=== PATIENT | male | born 1960 | race Caucasian/White ===

== ENCOUNTER 2017-12-09 01:18 | Inpatient (IN) | payer BC ==
[2017-12-09] MEDS ORDERED: MIDAZOLAM 2 MG/2 ML VIAL ONE (01:29)
[2017-12-09] MEDS ORDERED: LIDOCAINE 1% INJ 10MG/ML (20 ML MDV) ONE (01:29)
[2017-12-09] MEDS ORDERED: VERAPAMIL 2.5 MG/ML 2 ML AMP ONE (01:45)
[2017-12-09] MEDS ORDERED: IV FLUID CONTINUATION 1,000 ML IV ONE (01:45)
[2017-12-09] MEDS ORDERED: HEPARIN SODIUM 1,000 UN/ML (10ML VL) ONE (01:45)
[2017-12-09] MEDS ORDERED: MIDAZOLAM 2 MG/2 ML VIAL IV ONE (01:58)
[2017-12-09] MEDS ORDERED: LIDOCAINE 1% (PF) 10MG/ML VIAL SQ ONE ×2 (01:58)
[2017-12-09] MEDS: VERAPAMIL SYRINGE (5 MG/10 ML) INTRAARTER ONE ×2 (02:01→02:14)
[2017-12-09] MEDS ORDERED: BIVALIRUDIN BOLUS 250 MG/50 ML IV ONE (02:01)
[2017-12-09] MEDS ORDERED: BIVALIRUDIN 250 MG in SODIUM CHLORIDE 0.9% 50 ML IV ONE (02:02)
[2017-12-09] MEDS ORDERED: LOSARTAN 25 MG TAB PO STA (02:15)
[2017-12-09] MEDS ORDERED: IOPAMIDOL-370 125ML BTL INJ ONE (02:18)
[2017-12-09] MEDS ORDERED: RX INFO: IV CONTRAST WAS GIVEN 1 EACH MISC MISCELLANE PRN (02:34)
[2017-12-09] MEDS ORDERED: SODIUM CHLORIDE 0.9% 1,000 ML IV SCH (02:45)
--- NOTE | 2017-12-09 02:56 | ED ---
Chest Pain HPI - General Chief Complaint: Chest Pain Stated Complaint: chest pain, stemi Time Seen by Provider: 12/09/17 01:23 Source: EMS Mode of arrival: EMS Limitations: no limitations - History of Present Illness Initial Comments: This patient is 57-year-old man who presents as a transfer from [facility]. The patient had gone there to be evaluated for chest pain. The chest pain began tonight around 7:30, while he was at rest. He indicates the substernal area and radiates towards the left shoulder to the left arm. Patient states the pain was moderate, constant and he initially did not notice worsening or relieving factors. He had gone to the other hospital where he had an initial workup with a negative troponin. The patient was started on heparin and nitroglycerin which did give symptomatic relief but he had recurrence of pain while he was there and a second EKG performed just after midnight was concerning for ST elevation NJ. The patient also had a repeat troponin which came back as 1.5. On arrival here, the patient states that his pain is improved but he still does have some pain rating it 2 out of 10. Patient has history of type 2 diabetes and also history of smoking. MD Complaint: chest pain -: hour(s) Onset: during rest Pain Location: substernal Pain Radiation: LUE Severity: moderate Quality: aching Consistency: constant Improves With: nitroglycerin Worsens With: nothing Treatments Prior to Arrival: aspirin, nitroglycerin, oxygen, other - Related Data Allergies Allergy/AdvReac Type Severity Reaction Status Date / Time No Known Allergies Allergy Verified 12/09/17 01:22 Review of Systems ROS Statement: Those systems with pertinent positive or pertinent negative responses have been documented in the HPI. ROS Other: All systems not noted in ROS Statement are negative. Constitutional: Denies: fever, chills, weakness Respiratory: Denies: cough, dyspnea Cardiovascular: Reports: as per HPI, chest pain. Denies: palpitations, orthopnea, edema, syncope Gastrointestinal: Denies: abdominal pain, nausea, vomiting Genitourinary: Denies: hematuria Musculoskeletal: Denies: back pain Skin: Denies: rash Neurological: Denies: headache, weakness, numbness Hematological/Lymphatic: Denies: easy bleeding EKG Findings - EKG Results: EKG: interpreted by RAKESH, sinus rhythm (Rate approximate 98 bpm), normal axis - NJ, Pacemaker, Normal: Myocardial infarction: septal NJ (old age or indeterminate) Past Medical History Past Medical History: No Reported History History of Any Multi-Drug Resistant Organisms: None Reported Past Surgical History: No Surgical Hx Reported Past Psychological History: No Psychological Hx Reported Smoking Status: Current every day smoker Past Alcohol Use History: None Reported Past Drug Use History: None Reported General Exam Limitations: no limitations General appearance: alert, in no apparent distress Head exam: Present: atraumatic, normocephalic Eye exam: Present: normal appearance. Absent: scleral icterus, conjunctival injection ENT exam: Present: normal oropharynx, mucous membranes moist Neck exam: Present: normal inspection, full ROM Respiratory exam: Present: normal lung sounds bilaterally. Absent: respiratory distress, wheezes, rales, rhonchi, stridor Cardiovascular Exam: Present: regular rate, normal rhythm, normal heart sounds. Absent: systolic murmur, diastolic murmur, rubs, gallop GI/Abdominal exam: Present: soft. Absent: distended, tenderness, guarding, rebound, rigid, mass Extremities exam: Present: normal inspection, normal capillary refill. Absent: pedal edema, calf tenderness Back exam: Present: normal inspection. Absent: CVA tenderness (R), CVA tenderness (L) Neurological exam: Present: alert Skin exam: Present: warm, dry, intact, normal color. Absent: rash Course Vital Signs 12/09/17 12/09/17 01:25 01:29 Temperature 97.9 F Pulse Rate 101 H 98 Respiratory 18 18 Rate Blood Pressure 168/74 160/75 O2 Sat by Pulse 96 96 Oximetry Chest Pain MDM - MDM When I received the call from [facility] regarding the transfer this patient , I had them fax an EKG and discussed with the career development coordinator/teacher Dr. Randhawa. The [employer] was activated. On arrival, the EKG was repeated and a facsimile was sent to career development coordinator/teacher and I also discussed with the interventional list on-call. The patient is taken to the incinerator plant laborer directly from the ER. Critical Care Time Critical Care Time: Yes (30 minutes) Disposition Clinical Impression: Acute coronary syndrome Disposition: ADMITTED IP TO THIS [facility] Condition: Serious Referrals: Ba Green MD [Primary Care Provider] - 1-2 days
[2017-12-09 03:05] LABS: Glucose,Whole Blood 264 mg/dL (75-99)
[2017-12-09] MEDS ORDERED: SODIUM CHLORIDE 0.45% IV SCH ×2 (03:30)
[2017-12-09] MEDS ORDERED: D5W PMX IV SCH ×2 (03:30)
[2017-12-09] MEDS ORDERED: HEPARIN SODIUM PORCINE IV SCH ×2 (03:30)
[2017-12-09 03:35] LABS: Basophils # (A) 0.1 k/uL (0-0.2); Basophils % (A) 1 %; Eosinophils # (A) 0.3 k/uL (0-0.7); Eosinophils % (A) 2 %; HCT 43.4 % (39.0-53.0); HGB 15.2 gm/dL (13.0-17.5); Lymphocytes # (A) 2.5 k/uL (1.0-4.8); Lymphocytes % (A) 19 %; MCH 28.5 pg (25.0-35.0); MCV 81.4 fL (80.0-100.0); Mean Platelet Volume 6.8; Monocytes # (A) 0.9 k/uL (0-1.0); Monocytes % (A) 7 %; Neutrophils # (A) 8.8 k/uL (1.3-7.7); Neutrophils % (A) 69 %; Platelet Count 267 k/uL (150-450); RBC 5.34 m/uL (4.30-5.90); RDW 13.2 % (11.5-15.5); WBC 12.7 k/uL (3.8-10.6)
[2017-12-09 03:44] LABS: INR 1.2 (<1.2); Partial Thromboplastin Time 50.4 sec (22.0-30.0); Prothrombin Time 11.2 sec (9.0-12.0)
[2017-12-09 03:57] LABS: ALT 55 U/L (21-72); AST 242 U/L (17-59); Albumin 4.2 g/dL (3.5-5.0); Alkaline Phosphatase 76 U/L (38-126); Anion Gap 9 mmol/L; Blood Urea Nitrogen 18 mg/dL (9-20); Calcium 9.2 mg/dL (8.4-10.2); Carbon Dioxide 23 mmol/L (22-30); Chloride 104 mmol/L (98-107); Glucose 257 mg/dL (74-99); Potassium 4.4 mmol/L (3.5-5.1); Sodium 136 mmol/L (137-145); Total Bilirubin 0.7 mg/dL (0.2-1.3); Total Protein 6.7 g/dL (6.3-8.2)
[2017-12-09] MEDS: ATORVASTATIN 80 MG TAB PO SCH (04:02)
[2017-12-09 04:03] LABS: Troponin I 52.1 ng/mL (0.000-0.034)
--- NOTE | 2017-12-09 04:36 | CONS ---
CONSULTATION Mr. Preston Li is a 57-year-old male patient who presented with chest pain to the emergency room at [facility] around 8 o'clock last night. He was sitting at home watching TV, when he started experiencing severe substernal chest discomfort with some radiation to the left arm. His first 12-lead ECG at [facility] was at 8:[address]-segment abnormalities in the in the precordial leads as well as ST depression in V5, V6, and in the inferior leads with ST elevation in aVR. His 2nd EKG was performed at [facility] at 12:20 am which showed an incomplete anterior wall TX complete anterior wall infarct with reduction in R-waves. He was then transferred to [facility]. I got a call from Dr. Thakur after 1:00 am in the morning saying the patient is being transferred for an anterior wall infarct. The 1st 12-lead ECG in the emergency room here was 1:25 am and showed a complete anterior wall infarct with ST anterior wall infarct. The patient had a very mild lingering pain and when I spoke to him, he had a very brief discomfort left. He stated that he had very similar pain and at about 7 o'clock this evening and was in the emergency room at [facility] at 8 o'clock and had fairly severe pain there for several hours. He also admitted to having intermittent similar chest discomfort for at least 24 hours prior but was mild and would go away. Yesterday at 7 o'clock in the evening, the pain was quite severe and was constant and therefore he went to the emergency room at that time. REVIEW OF SYSTEMS: No fever, chills, or rigors. No cough or expectoration. No nausea, vomiting, or diarrhea. No hematuria or dysuria. No strokes or seizures or skin lesions. No musculoskeletal complaints. PAST MEDICAL HISTORY: Diabetes. He does not take any diabetes medications. He is not on any medications at all. He is a patient of Dr. Green. ALLERGIES: None reported. PHYSICAL EXAMINATION: His blood pressure is 130/85 mmHg. Pulse rate in the 90s. Head and neck examination is normal. Heart sounds S1, S2 normal. No murmurs or gallops. No rub. Breath sounds are clear. ABDOMEN: Soft. Extremities warm. IMPRESSION: 1. Completed anterior wall infarct with minimal lingering pain. Onset of pain was at 7:00 pm last evening he was in [facility] at 8 o'clock 8:00 pm. His 1st ECG was at 8:22 pm and he had pain in the emergency room for several hours before he was transferred here. 2. Diabetes, adult onset not taking any medications. He has stopped his medications. SUGGEST: Proceed with coronary angiography for completed anterior wall infarct with lingering mild discomfort. ZHAO / CRISTINA: [id number] /
--- NOTE | 2017-12-09 05:06 | CC ---
CARDIAC CATHETERIZATION REPORT DATE OF SERVICE: 12/09/2017 PERFORMING PHYSICIAN: Amado Mcgraw MD, cafe team member. PROCEDURE PERFORMED: 1. Selective right and left coronary angiogram. 2. Left heart catheterization. INDICATION: This is a pleasant 57-year-old gentleman who to the emergency room at [facility] complaining of chest discomfort. He was ruled in for acute non ST elevation myocardial infarction. The patient was seen and evaluated by Dr. Randhawa who recommended proceeding with a heart catheterization to rule out any severe underlying coronary artery disease. APPROACH: Right radial artery. COMPLICATION: None. LEVEL OF SEDATION: Moderate with sedation length of 17 minutes. PROCEDURE DESCRIPTION: After obtaining an informed consent, the patient was brought to the cardiac dye lab technician. The right radial artery was cannulated using micropuncture technique, the micropuncture wire passed easily then I placed a 6-Senegalese sheath in the right radial artery. After that, I did give the patient 2 mg of verapamil IA and started the patient on anticoagulation with Angiomax. After that, I did selective right and left coronary angiogram using JR4 and JL3.5 catheters. Left heart catheterization was performed using JR4 catheter which flipped into the LV then I did pullback across the aortic valve after the catheter was flushed. The procedure was completed without any complication. SELECTIVE CORONARY ANGIOGRAM: 1. The RCA is a large caliber vessel and it is a dominant vessel. The proximal RCA has a lesion appeared to be in the range of 70%. The mid RCA is chronically occluded and fills by collateral from the left coronary system. The collaterals filled the RCA in a retrograde way all the way to the [employer] DEVELOPER in the midportion. 2. The left main is calcified with mild disease only. The disease appears to be in the range of 70%. Bifurcates in the circumflex, ramus intermedius, and left anterior descending artery. 3. The left circumflex is a moderate caliber vessel and its nondominant vessel. The proximal left circumflex appeared to have mild disease only. The mid left circumflex is diffusely diseased up to about 80% to 90% on a long segment. The left circumflex gives rise into multiple small obtuse marginal branches and they are diffusely diseased as well. 4. The ramus intermedius is a large caliber vessel, the whole lateral wall of the LV. The proximal ramus intermedius has a tubular lesion appeared to be in the range of 80% to 90%. The ramus intermedius after that bifurcates into 2 separate branches they are angiographically normal. 5. The LAD: The proximal LAD has a long tubular lesion extends from the ostium to the first diagonal branch and that lesion appeared to be in the range of 99%. The mid LAD after the diagonal branch all the way to the apex is diffusely diseased up to about 40% to 50%. HEMODYNAMICS: The left ventricular end-diastolic pressure was 12 mmHg and no gradient was identified across the aortic valve. CONCLUSION: 1. Severe triple-vessel coronary artery disease. 2. Calcified left coronary system. 3. Chronic total occlusion of the right coronary artery in the midportion which fills by collaterals from the left coronary system. 4. Critical disease involving the left circumflex in the mid portion. 5. Critical disease involving the ramus intermedius coronary artery in the proximal portion. 6. Critical disease involving the proximal left anterior descending artery as well. POSTPROCEDURE MANAGEMENT: Giving the patient anatomy, which is a triple-vessel coronary artery disease, as well as the nature of the disease, which is diffuse, as well as the diabetes, we did recommend proceeding with coronary artery bypass grafting. We will consult surgeon to evaluate the patient. Meanwhile, the patient will be admitted to the intensive care unit. Heparin will be restarted on the patient after we achieve hemostasis at the right radial artery. Aspirin, beta suzie, and statin will be started as well and follow up with the patient. ZHAO / ADELINEN: [id number] /
--- NOTE | 2017-12-09 07:12 | XR ---
EXAMINATION TYPE: XR chest 1V DATE OF EXAM: 12/09/2017 COMPARISON: NONE HISTORY: Chest pain TECHNIQUE: Single frontal view of the chest is obtained. FINDINGS: There is no focal air space opacity, pleural effusion, or pneumothorax seen. The cardiac silhouette size is within normal limits. The osseous structures are intact. IMPRESSION: No acute cardiopulmonary process.
[2017-12-09] MEDS ORDERED: MD COMMUNICATION TO PHARMACY 1 EACH MISC PO ONE (07:39)
--- NOTE | 2017-12-09 07:45 | P.PN ---
Subjective Progress Note Date: 12/09/17 Principal diagnosis: Acute coronary syndrome This is a pleasant 57-year-old gentleman with history of diabetes who presented to the hospital complaining of chest discomfort and ruled in for acute coronary syndrome. He underwent a heart catheterization yesterday and that revealed severe two-vessel CAD with occluded RCA chronically fills by collateral from the left coronary system, critical disease involving the left circumflex, and critical disease involving the left anterior descending artery. Giving his anatomy and being diabetic the patient was referred for coronary artery that is grafting and he is in process to be seen by cardiothoracic surgeon later on today. He denies having any chest pain or chest discomfort. An echocardiogram was ordered and in process to be done. He is on aspirin, metoprolol, and high intensity statin. He continues to be also on heparin IV. Objective - Vital Signs Vital signs: Vital Signs Temp 98 F 12/09/17 04:00 Pulse 92 12/09/17 07:30 Resp 15 12/09/17 07:30 BP 122/84 12/09/17 07:30 Pulse Ox 97 12/09/17 07:30 Intake & Output 12/08/17 12/09/17 12/09/17 18:59 06:59 18:59 Intake Total 383.79 95 Output Total 600 Balance -216.21 95 Weight 90.718 kg Intake: IV 383.79 95 Sodium Chloride 0.45 % 40 20 500 ml @ 20 mls/hr IV . Q24H KISHA with Heparin Sodium,Porcine/D5w Pmx 25 ,000 unit Rx#:[id number] Sodium Chloride 0.9% 1, 225 75 000 ml @ 75 mls/hr IV . [id number] KISHA Rx#:[id number] Output: Urine 600 Other: Voiding Method Urinal # Voids 1 - Constitutional General appearance: Present: no acute distress - Respiratory Respiratory: bilateral: CTA - Cardiovascular Rhythm: regular Heart sounds: normal: S1, S2 - Labs CBC & Chem 7: 12/09/17 03:20 12/09/17 03:20 Labs: Abnormal Lab Results - Last 24 Hours (Table) 12/09/17 12/09/17 12/09/17 Range/Units 03:03 03:20 03:20 WBC 12.7 H (3.8-10.6) k/uL Neutrophils # 8.8 H (1.3-7.7) k/uL INR (<1.2) APTT (22.0-30.0) sec Sodium (137-145) mmol/L Glucose (74-99) mg/dL POC Glucose (mg/dL) 264 H (75-99) mg/dL AST (17-59) U/L Total Creatine Kinase 2639 H (55-170) U/L CK-MB (CK-2) 128.0 H* (0.0-2.4) ng/mL Troponin I 52.100 H* (0.000-0.034) ng/mL 12/09/17 12/09/17 Range/Units 03:20 03:20 WBC (3.8-10.6) k/uL Neutrophils # (1.3-7.7) k/uL INR 1.2 H (<1.2) APTT 50.4 H (22.0-30.0) sec Sodium 136 L (137-145) mmol/L Glucose 257 H (74-99) mg/dL POC Glucose (mg/dL) (75-99) mg/dL AST 242 H (17-59) U/L Total Creatine Kinase (55-170) U/L CK-MB (CK-2) (0.0-2.4) ng/mL Troponin I (0.000-0.034) ng/mL Assessment and Plan Assessment: Assessment #1 acute coronary syndrome. #2 severe two-vessel CAD #3 diabetes Plan #1 the patient is in process to be seen by cardiothoracic surgeon for evaluation off CABG #2 continue the current medical treatment with antiplatelet, high intensity statin, and metoprolol. As a matter of fact I am going to increase the dose of metoprolol to 25 mg by mouth twice a day. #3 follow-up on the echocardiogram later on today.
--- NOTE | 2017-12-09 08:13 | P.GSCN ---
History of Present Illness Consult date: 12/09/17 Reason for Consult: Severe triple vessel coronary artery disease, non-STEMI, surgical revascularization recommendations. Requesting physician: Kali Randhawa History of present illness: This is a 57-year-old male patient who follows with Dr. Ba Green on an outpatient basis. He has a previous medical history of diabetes mellitus, hypertension, hyperlipidemia, stroke greater than 5 years ago, current tobacco dependence, suspicion for obstructive sleep apnea, and family history of premature coronary artery disease with his brother having a 5 vessel bypass at 57 years old. He is on no medications at home by choice. He presented to [facility] with complaints of substernal chest pain with radiation to his left arm while at rest. Apparently he had been having intermittent chest discomfort for the previous 24 hours but that it became so severe he felt the need to report to the emergency room. He denied shortness of breath, diaphoresis, nausea, vomiting, or any other associated symptoms. His 12-lead EKG at [facility] demonstrated ST segment abnormalities in the precordial leads as well as ST depression in V5, V6, and the inferior leads with ST elevation in aVR. His initial troponin was negative, second troponin was 1.5. He was transferred to [facility] and was taken emergently to the cardiac catheterization lab. His third troponin was 52.1. His heart catheterization demonstrated proximal RCA lesion 70%, chronic total occlusion of the mid RCA with collateral fill from the left coronary system, mid circumflex with diffuse disease of 80-90%, proximal ramus artery with a lesion of 80-90%, proximal LAD with a long lesion extending from the ostium to the first diagonal branch which appears to be a proximal 99%, and mid LAD after the diagonal branch with diffuse disease of 40-50%. The patient was transferred to the intensive care unit and a consult was placed for Dr. Roth from cardiothoracic surgery regarding surgical recommendations. Review of Systems Review of systems was completed and was negative except as noted. - Cardiovascular Reports as per HPI, Reports chest pain Past Medical History Past Medical History: CVA/TIA, Diabetes Mellitus, Hyperlipidemia, Hypertension History of Any Multi-Drug Resistant Organisms: None Reported Past Surgical History: No Surgical Hx Reported Additional Past Surgical History / Comment(s): heart cath 12/09 Past Anesthesia/Blood Transfusion Reactions: No Reported Reaction Past Psychological History: No Psychological Hx Reported Smoking Status: Current every day smoker Past Alcohol Use History: None Reported Past Drug Use History: None Reported - Past Family History Brother(s) Family Medical History: Coronary Artery Disease (CAD) Additional Family Medical History / Comment(s): Brother had 5 vessel coronary artery bypass at 57 years old Medications and Allergies Home Medications Medication Instructions Recorded Confirmed Type No Known Home Medications 12/09/17 12/09/17 History Allergies Allergy/AdvReac Type Severity Reaction Status Date / Time No Known Allergies Allergy Verified 12/09/17 08:09 Surgical - Exam Vital Signs Temp Pulse Resp BP Pulse Ox 97.9 F 101 H 18 168/74 96 12/09/17 01:25 12/09/17 01:25 12/09/17 01:25 12/09/17 01:25 12/09/17 01:25 - General well developed, well nourished, no distress - Eyes PERRL, normal ocular movement - ENT no hearing loss - Neck no masses, no bruits, trachea midline - Respiratory Lungs sounds diminished bilaterally. Respirations even, nonlabored. Currently on 2 L nasal cannula with oxygen saturation 97%. No chest wall deformities. - Cardiovascular S1, S2 present. Regular rate and rhythm, sinus rhythm on telemetry. Palpable peripheral pulses bilaterally. No edema present. No calf pain or tenderness noted. No varicosities noted. - Abdomen Abdomen: soft, non tender, bowel sounds - Genitourinary Deferred - Rectum Deferred - Integumentary Right radial catheterization site with TR band in place. no rash, no growths, no abnormal pigmentation - Neurologic normal coordination, normal sensation - Psychiatric oriented to time, oriented to person, oriented to place, speech is normal, memory intact Results - Labs 12/09/17 03:20 12/09/17 03:20 Abnormal Lab Results - Last 24 Hours (Table) 12/09/17 12/09/17 12/09/17 Range/Units 03:03 03:20 03:20 WBC 12.7 H (3.8-10.6) k/uL Neutrophils # 8.8 H (1.3-7.7) k/uL INR (<1.2) APTT (22.0-30.0) sec Sodium (137-145) mmol/L Glucose (74-99) mg/dL POC Glucose (mg/dL) 264 H (75-99) mg/dL AST (17-59) U/L Total Creatine Kinase 2639 H (55-170) U/L CK-MB (CK-2) 128.0 H* (0.0-2.4) ng/mL Troponin I 52.100 H* (0.000-0.034) ng/mL 12/09/17 12/09/17 Range/Units 03:20 03:20 WBC (3.8-10.6) k/uL Neutrophils # (1.3-7.7) k/uL INR 1.2 H (<1.2) APTT 50.4 H (22.0-30.0) sec Sodium 136 L (137-145) mmol/L Glucose 257 H (74-99) mg/dL POC Glucose (mg/dL) (75-99) mg/dL AST 242 H (17-59) U/L Total Creatine Kinase (55-170) U/L CK-MB (CK-2) (0.0-2.4) ng/mL Troponin I (0.000-0.034) ng/mL Diabetes panel 12/09/17 Range/Units 03:20 Sodium 136 L (137-145) mmol/L Potassium 4.4 (3.5-5.1) mmol/L Chloride 104 (98-107) mmol/L Carbon Dioxide 23 (22-30) mmol/L BUN 18 (9-20) mg/dL Creatinine 0.90 (0.66-1.25) mg/dL Glucose 257 H (74-99) mg/dL Calcium 9.2 (8.4-10.2) mg/dL AST 242 H (17-59) U/L ALT 55 (21-72) U/L Alkaline Phosphatase 76 (38-126) U/L Total Protein 6.7 (6.3-8.2) g/dL Albumin 4.2 (3.5-5.0) g/dL Calcium panel 12/09/17 Range/Units 03:20 Calcium 9.2 (8.4-10.2) mg/dL Albumin 4.2 (3.5-5.0) g/dL Pituitary panel 12/09/17 Range/Units 03:20 Sodium 136 L (137-145) mmol/L Potassium 4.4 (3.5-5.1) mmol/L Chloride 104 (98-107) mmol/L Carbon Dioxide 23 (22-30) mmol/L BUN 18 (9-20) mg/dL Creatinine 0.90 (0.66-1.25) mg/dL Glucose 257 H (74-99) mg/dL Calcium 9.2 (8.4-10.2) mg/dL Adrenal panel 12/09/17 Range/Units 03:20 Sodium 136 L (137-145) mmol/L Potassium 4.4 (3.5-5.1) mmol/L Chloride 104 (98-107) mmol/L Carbon Dioxide 23 (22-30) mmol/L BUN 18 (9-20) mg/dL Creatinine 0.90 (0.66-1.25) mg/dL Glucose 257 H (74-99) mg/dL Calcium 9.2 (8.4-10.2) mg/dL Total Bilirubin 0.7 (0.2-1.3) mg/dL AST 242 H (17-59) U/L ALT 55 (21-72) U/L Alkaline Phosphatase 76 (38-126) U/L Total Protein 6.7 (6.3-8.2) g/dL Albumin 4.2 (3.5-5.0) g/dL - Imaging Chest x-ray: report reviewed, image reviewed EKG: image reviewed Additional studies: Heart catheterization films reviewed. Assessment and Plan (1) Non-STEMI (non-ST elevated myocardial infarction) Current Visit: Yes Status: Acute Code(s): I21.4 - NON-ST ELEVATION (NSTEMI) MYOCARDIAL INFARCTION SNOMED Code(s): 087858631 (2) Hypertension Current Visit: Yes Status: Chronic Code(s): I10 - ESSENTIAL (PRIMARY) HYPERTENSION SNOMED Code(s): 20478030 (3) Hyperlipidemia Current Visit: Yes Status: Chronic Code(s): E78.5 - HYPERLIPIDEMIA, UNSPECIFIED SNOMED Code(s): 69750574 (4) History of stroke Current Visit: No Status: Resolved Code(s): Z86.73 - PRSNL HX OF TIA (TIA), AND CEREB INFRC W/O RESID DEFICITS SNOMED Code(s): 616094039 (5) Tobacco dependence Current Visit: Yes Status: Chronic Code(s): F17.200 - NICOTINE DEPENDENCE, UNSPECIFIED, UNCOMPLICATED SNOMED Code(s): 79630752 (6) Family history of premature coronary artery disease Current Visit: Yes Status: Chronic Code(s): Z82.49 - FAMILY HX OF ISCHEM HEART DIS AND OTH DIS OF THE CIRC SYS SNOMED Code(s): 979018291 (7) Diabetes mellitus Current Visit: Yes Status: Chronic Code(s): E11.9 - TYPE 2 DIABETES MELLITUS WITHOUT COMPLICATIONS SNOMED Code(s): 17045711 (8) Acute coronary syndrome Current Visit: Yes Status: Acute Code(s): I24.9 - ACUTE ISCHEMIC HEART DISEASE, UNSPECIFIED SNOMED Code(s): 520732344 Plan: The patient was seen and examined at the bedside. Chart/diagnostics were reviewed. We would recommend maximizing medical therapy with aspirin, statin, beta suzie. Preoperative teaching was initiated with the patient. Preoperative testing was ordered. Encourage patient to quit smoking. We'll discuss the case in detail with Dr. Roth. STS risk score will be calculated upon completion of preoperative testing and discussed with the patient. Medical management per primary care service, cardiology management per Dr. Randhawa. More recommendations to follow. Thank you Dr. Randhawa for this consult. We look forward to working with you in the care of your patient. Time with Patient: Greater than 30
[2017-12-09] MEDS: MUPIROCIN 2% OINT 22 GM TUBE NASAL SCH ×2 (08:33→19:51)
[2017-12-09] MEDS: METOPROLOL SUCCINATE (ER) 25 MG TAB.ER.24H PO SCH ×2 (08:33→19:51)
[2017-12-09] MEDS: ASPIRIN 81 MG PO SCH (08:33)
[2017-12-09] MEDS ORDERED: METOPROLOL SUCCINATE (ER) 25 MG TAB.ER.24H PO SCH (09:00)
[2017-12-09 09:10] LABS: Troponin I 69.1 ng/mL (0.000-0.034)
--- NOTE | 2017-12-09 09:49 | ECHOF ---
Referral Reason:ACS MEASUREMENTS -------- HEIGHT: 180.3 cm WEIGHT: 90.7 kg BP: IVSd: 0.9 cm (0.6 - 1.1) LVIDd: 4.2 cm (3.9 - 5.3) LVPWd: 0.9 cm (0.6 - 1.1) IVSs: 1.1 cm LVIDs: 3.7 cm LVPWs: 1.4 cm Ao Diam: 3.8 cm (2.0 - 3.7) AV Cusp: 2.0 cm (1.5 - 2.6) LA Diam: 2.7 cm (2.7 - 3.8) MV EXCURSION: 18.395 mm (> 18.000) MV EF SLOPE: 127 mm/s (70 - 150) EPSS: 0.8 cm MV E Elton: 0.62 m/s MV DecT: 107 ms MV A Elton: 0.80 m/s MV E/A Ratio: 0.78 FINDINGS -------- Sinus rhythm. This was a technically difficult study with suboptimal views. The left ventricular size is normal. Left ventricular wall thickness is normal. Overall left vent ricular systolic function is moderate-severely impaired with, an EF between 30 - 35 %. Large apical a kinesis The right ventricle is normal in size and function. The left atrium is normal in size. The right atrium is normal in size. Lumason used The aortic valve is trileaflet and appears structurally normal. Mild mitral regurgitation is present. Mild tricuspid regurgitation present. The right ventricular systolic pressure, as measured by Doppl er, is {RVSP}. Pulmonic valve appears structurally normal. The aortic root is dilated measuring 3.9 cm CONCLUSIONS -------- 1. Sinus rhythm. 2. This was a technically difficult study with suboptimal views. 3. The left ventricular size is normal. 4. Left ventricular wall thickness is normal. 5. Overall left ventricular systolic function is moderate-severely impaired with, an EF between 30 - 35 %. 6. The right ventricle is normal in size and function. 7. The left atrium is normal in size. 8. The right atrium is normal in size. 9. Lumason used 10. The aortic valve is trileaflet and appears structurally normal. 11. Mild mitral regurgitation is present. 12. Mild tricuspid regurgitation present. 13. The right ventricular systolic pressure, as measured by Doppler, is {RVSP}. 14. Pulmonic valve appears structurally normal. 15. The aortic root is dilated measuring 3.9 cm SERVICE DESK AGENT: Mariella Wlaler RDCS
--- NOTE | 2017-12-09 11:28 | US ---
EXAMINATION TYPE: US carotid duplex BILAT DATE OF EXAM: 12/09/2017 COMPARISON: NONE CLINICAL HISTORY: 57-year-old male preop cardiac surgery. History of TIA 5 years ago TECHNIQUE: Carotid duplex ultrasound examination. Indirect Doppler criteria was utilized. 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 Criteria for Assigning % of Stenosis / Diameter reduction (Estimation based on the indirect measurements of the internal carotid artery velocities (ICA PSV). 1. Normal (no stenosis)=ICA PSV < 125 cm/s: ratio < 2.0: ICA EDV<40 cm/s. 2. Less than 50% stenosis=ICA PSV < 125 cm/s: ratio < 2.0: ICA EDV<40 cm/s. 3. 50 to 69% stenosis=ICA PSV of 125 to 230 cm/s: ration 2.0 ? 4.0: ICA EDV 40-100 cm/s. 4. Greater than 70% stenosis to near occlusion= ICA PSV > 230 cm/s: ratio > 4.0: ICA EDV > 100 cm/s. 5. Near occlusion= ICA PSV velocities may be low or undetectable: variable ratio and ICA EDV. 6. Total occlusion=unable to detect flow.
[2017-12-09 11:58] LABS: Glucose,Whole Blood 248 mg/dL (75-99)
[2017-12-09] MEDS: INSULIN ASPART 100 UNIT/ML 1 ML 10 ML VIAL SQ SCH ×3 (12:04→21:34)
[2017-12-09] MEDS ORDERED: IPRATROPIUM-ALBUTEROL 3 ML NEB INHALATION PRN (12:10)
--- NOTE | 2017-12-09 12:10 | P.CNPUL ---
History of Present Illness Consult date: 12/09/17 Requesting physician: Samantha Roth Reason for consult: other (Preoperative pulmonary clearance) Chief complaint: Chest pain History of present illness: This is a 57-year-old white male, [id number] smoker, known history of mild COPD, type 2 diabetes, patient presented to the hospital with acute chest pain and discomfort, felt to have ST elevation myocardial infarction. Cardiac catheterization showed severe two-vessel disease with occluded RCA chronically fills by collaterals from the left coronary system. Critical disease noted in the left circumflex and critical disease noted in the LAD. Considering the findings, patient was referred to cardiothoracic surgery, and he is being considered for myocardial revascularization in the morning. Patient denies chronic shortness of breath, denies any cough and wheezing. Has been a smoker over the years, and he was given 1 time by his primary care physician albuterol , but he rarely ever takes albuterol. He is relatively active physically, no dyspnea on exertion. No fever no chills no hemoptysis no chest pain until the time of his presentation. Patient denies any GI symptoms no nausea no vomiting up down pain no melena no hematemesis. No dysuria and no frequency no urgency. Denies any neurological symptoms. And no musculoskeletal symptoms. Review of Systems 14 point review of systems were obtained, please refer to pertinent positives in HPI, otherwise remaining systems are negative. Past Medical History Past Medical History: CVA/TIA, Diabetes Mellitus, Hyperlipidemia, Hypertension History of Any Multi-Drug Resistant Organisms: None Reported Past Surgical History: No Surgical Hx Reported Additional Past Surgical History / Comment(s): heart cath 12/09 Past Anesthesia/Blood Transfusion Reactions: No Reported Reaction Past Psychological History: No Psychological Hx Reported Smoking Status: Current every day smoker Past Alcohol Use History: None Reported Past Drug Use History: None Reported - Past Family History Brother(s) Family Medical History: Coronary Artery Disease (CAD) Additional Family Medical History / Comment(s): Brother had 5 vessel coronary artery bypass at 57 years old Medications and Allergies Home Medications Medication Instructions Recorded Confirmed Type No Known Home Medications 12/09/17 12/09/17 History Allergies Allergy/AdvReac Type Severity Reaction Status Date / Time No Known Allergies Allergy Verified 12/09/17 08:09 Physical Exam Vitals: Vital Signs Temp Pulse Resp BP Pulse Ox 12/09/17 07:30 92 15 122/84 97 12/09/17 07:00 85 19 121/79 94 L 12/09/17 06:30 91 19 121/79 96 12/09/17 06:00 90 18 120/80 96 12/09/17 05:30 87 15 120/80 97 12/09/17 05:00 94 17 119/75 97 12/09/17 04:30 91 18 118/70 97 12/09/17 04:00 98 F 88 16 129/79 98 12/09/17 03:30 96 18 119/78 98 12/09/17 03:00 97.9 F 96 16 121/73 95 12/09/17 01:29 98 18 160/75 96 12/09/17 01:25 97.9 F 101 H 18 168/74 96 Intake and Output 12/08/17 12/09/17 12/09/17 22:59 06:59 14:59 Intake Total 383.79 95 Output Total 600 Balance -216.21 95 Intake: IV 383.79 95 Sodium Chloride 0.45 % 40 20 500 ml @ 20 mls/hr IV . Q24H KISHA with Heparin Sodium,Porcine/D5w Pmx 25 ,000 unit Rx#:[id number] Sodium Chloride 0.9% 1, 225 75 000 ml @ 75 mls/hr IV . [id number] KISHA Rx#:[id number] Output: Urine 600 Other: Voiding Method Urinal # Voids 1 Weight 90.718 kg Physical Exam: Revealed a 57-year-old white male in no distress. Head: Atraumatic, normocephalic. HEENT:[Neck is supple.] [No neck masses.] [No thyromegaly.] [No JVD.] Chest: [Clear throughout, no crackles, no rhonchi, no wheezes.] Cardiac Exam: [Normal S1 and S2, no S3 gallop, no murmur.] Abdomen: [Soft, nontender, no megaly, no rebound, no guarding, normal bowel sounds.] Extremities: [No clubbing, no edema, no cyanosis.] Neurological Exam: [No focal neurologic deficit. Lymphatics: No lymphadenopathy. Psychiatric: Normal mood affect and mental status examination.] Results - Laboratory Findings CBC and BMP: 12/09/17 03:20 12/09/17 03:20 PT/INR, D-dimer PT 11.2 sec (9.0-12.0) 12/09/17 03:20 INR 1.2 (<1.2) H 12/09/17 03:20 Abnormal lab findings: Abnormal Labs 12/09/17 12/09/17 12/09/17 03:03 03:20 03:20 WBC 12.7 H Neutrophils # 8.8 H INR APTT Sodium Glucose POC Glucose (mg/dL) 264 H AST Total Creatine Kinase 2639 H CK-MB (CK-2) 128.0 H* Troponin I 52.100 H* Triglycerides HDL Cholesterol 12/09/17 12/09/17 12/09/17 03:20 03:20 03:20 WBC Neutrophils # INR 1.2 H APTT 50.4 H Sodium 136 L Glucose 257 H POC Glucose (mg/dL) AST 242 H Total Creatine Kinase CK-MB (CK-2) Troponin I Triglycerides 457 H HDL Cholesterol 36 L 12/09/17 12/09/17 07:54 11:56 WBC Neutrophils # INR APTT Sodium Glucose POC Glucose (mg/dL) 248 H AST Total Creatine Kinase 2720 H CK-MB (CK-2) 132.0 H* Troponin I 69.100 H* Triglycerides HDL Cholesterol - Diagnostic Findings Chest x-ray: image reviewed (No acute pulmonary process was noted.) Assessment and Plan Assessment: Impression: 1 acute coronary syndrome 2 2 vessel coronary artery disease, as noted on his cardiac catheterization. 3 suspect mild COPD, however the patient is relatively asymptomatic. 4 tobacco dependence syndrome and the patient was counseled regarding smoking cessation. Recommendation: Patient is considered low operative risk for myocardial revascularization, we will order a bedside PFT, will placed on bronchodilators, incentive spirometry, and the patient will be cleared for surgery as scheduled. We'll continue to follow Time with Patient: Greater than 30
[2017-12-09] MEDS: HEPARIN SOD,PORK IN 0.45% NACL 25,000 UNIT in 0.45% NACL 1 500ML.BAG IV SCH (12:47)
--- NOTE | 2017-12-09 13:37 | P.HPIM ---
History of Present Illness 57-year-old white male, [id number] smoker, known history of mild COPD, type 2 diabetes, patient presented to the hospital with acute chest pain and discomfort , felt to have ST elevation myocardial infarction. Cardiac catheterization showed severe two-vessel disease with occluded RCA chronically fills by collaterals from the left coronary system. Critical disease noted in the left circumflex and critical disease noted in the LAD. Considering the findings, patient was referred to cardiothoracic surgery, and he is being considered for myocardial revascularization in the morning. Patient denies chronic shortness of breath, denies any cough and wheezing. Has been a smoker over the years, and he was given 1 time by his primary care physician albuterol, but he rarely ever takes albuterol. He is relatively active physically, no dyspnea on exertion. No fever no chills no hemoptysis no chest pain until the time of his presentation. Patient denies any GI symptoms no nausea no vomiting up down pain no melena no hematemesis. No dysuria and no frequency no urgency. Denies any neurological symptoms. And no musculoskeletal symptoms. Review of Systems REVIEW OF SYSTEMS: CONSTITUTIONAL: No fever, no malaise, no fatigue. HEENT: No recent visual problems or hearing problems. Denied any sore throat. CARDIOVASCULAR: No chest pain, orthopnea, PND, no palpitations, no syncope. PULMONARY: No shortness of breath, no cough, no hemoptysis. GASTROINTESTINAL: No diarrhea, no nausea, no vomiting, no abdominal pain. Normoactive bowel sounds. NEUROLOGICAL: No headaches, no weakness, no numbness. HEMATOLOGICAL: Denies any bleeding or petechiae. GENITOURINARY: Denies any burning micturition, frequency, or urgency. MUSCULOSKELETAL/RHEUMATOLOGICAL: Denies any joint pain, swelling, or any muscle pain. ENDOCRINE: Denies any polyuria or polydipsia. The rest of the 14-point review of systems is negative. Past Medical History Past Medical History: CVA/TIA, Diabetes Mellitus, Hyperlipidemia, Hypertension History of Any Multi-Drug Resistant Organisms: None Reported Past Surgical History: No Surgical Hx Reported Additional Past Surgical History / Comment(s): heart cath 12/09 Past Anesthesia/Blood Transfusion Reactions: No Reported Reaction Past Psychological History: No Psychological Hx Reported Smoking Status: Current every day smoker Past Alcohol Use History: None Reported Past Drug Use History: None Reported - Past Family History Brother(s) Family Medical History: Coronary Artery Disease (CAD) Additional Family Medical History / Comment(s): Brother had 5 vessel coronary artery bypass at 57 years old Medications and Allergies Home Medications Medication Instructions Recorded Confirmed Type No Known Home Medications 12/09/17 12/09/17 History Allergies Allergy/AdvReac Type Severity Reaction Status Date / Time No Known Allergies Allergy Verified 12/09/17 08:09 Physical Exam Vitals: Vital Signs Temp Pulse Resp BP Pulse Ox 12/09/17 07:30 92 15 122/84 97 12/09/17 07:00 85 19 121/79 94 L 12/09/17 06:30 91 19 121/79 96 12/09/17 06:00 90 18 120/80 96 12/09/17 05:30 87 15 120/80 97 12/09/17 05:00 94 17 119/75 97 12/09/17 04:30 91 18 118/70 97 12/09/17 04:00 98 F 88 16 129/79 98 12/09/17 03:30 96 18 119/78 98 12/09/17 03:00 97.9 F 96 16 121/73 95 12/09/17 01:29 98 18 160/75 96 12/09/17 01:25 97.9 F 101 H 18 168/74 96 Intake and Output 12/08/17 12/09/17 12/09/17 22:59 06:59 14:59 Intake Total 383.79 95 Output Total 600 Balance -216.21 95 Intake: IV 383.79 95 Sodium Chloride 0.45 % 40 20 500 ml @ 20 mls/hr IV . Q24H KISHA with Heparin Sodium,Porcine/D5w Pmx 25 ,000 unit Rx#:[id number] Sodium Chloride 0.9% 1, 225 75 000 ml @ 75 mls/hr IV . [id number] KSIHA Rx#:[id number] Output: Urine 600 Other: Voiding Method Urinal # Voids 1 Weight 90.718 kg PHYSICAL EXAMINATION: GENERAL: The patient is alert and oriented x3, not in any acute distress. Well developed, well nourished. HEENT: Pupils are round and equally reacting to light. EOMI. No scleral icterus. No conjunctival pallor. Normocephalic, atraumatic. No pharyngeal erythema. No thyromegaly. CARDIOVASCULAR: S1 and S2 present. No murmurs, rubs, or gallops. PULMONARY: Chest is clear to auscultation, no wheezing or crackles. ABDOMEN: Soft, nontender, nondistended, normoactive bowel sounds. No palpable organomegaly. MUSCULOSKELETAL: No joint swelling or deformity. EXTREMITIES: No cyanosis, clubbing, or pedal edema. NEUROLOGICAL: Gross neurological examination did not reveal any focal deficits. SKIN: No rashes. Results CBC & Chem 7: 12/09/17 03:20 12/09/17 03:20 Labs: Abnormal Lab Results - Last 24 Hours (Table) 12/09/17 12/09/17 12/09/17 Range/Units 03:03 03:20 03:20 WBC 12.7 H (3.8-10.6) k/uL Neutrophils # 8.8 H (1.3-7.7) k/uL INR (<1.2) APTT (22.0-30.0) sec Sodium (137-145) mmol/L Glucose (74-99) mg/dL POC Glucose (mg/dL) 264 H (75-99) mg/dL AST (17-59) U/L Total Creatine Kinase 2639 H (55-170) U/L CK-MB (CK-2) 128.0 H* (0.0-2.4) ng/mL Troponin I 52.100 H* (0.000-0.034) ng/mL Triglycerides (<150) mg/dL HDL Cholesterol (40-60) mg/dL 12/09/17 12/09/17 12/09/17 Range/Units 03:20 03:20 03:20 WBC (3.8-10.6) k/uL Neutrophils # (1.3-7.7) k/uL INR 1.2 H (<1.2) APTT 50.4 H (22.0-30.0) sec Sodium 136 L (137-145) mmol/L Glucose 257 H (74-99) mg/dL POC Glucose (mg/dL) (75-99) mg/dL AST 242 H (17-59) U/L Total Creatine Kinase (55-170) U/L CK-MB (CK-2) (0.0-2.4) ng/mL Troponin I (0.000-0.034) ng/mL Triglycerides 457 H (<150) mg/dL HDL Cholesterol 36 L (40-60) mg/dL 12/09/17 12/09/17 Range/Units 07:54 11:56 WBC (3.8-10.6) k/uL Neutrophils # (1.3-7.7) k/uL INR (<1.2) APTT (22.0-30.0) sec Sodium (137-145) mmol/L Glucose (74-99) mg/dL POC Glucose (mg/dL) 248 H (75-99) mg/dL AST (17-59) U/L Total Creatine Kinase 2720 H (55-170) U/L CK-MB (CK-2) 132.0 H* (0.0-2.4) ng/mL Troponin I 69.100 H* (0.000-0.034) ng/mL Triglycerides (<150) mg/dL HDL Cholesterol (40-60) mg/dL Thrombosis Risk Factor Assmnt - Choose All That Apply Any of the Below Risk Factors Present?: Yes Each Factor Represents 1 point: Acute [place], Age 41-60 years Thrombosis Risk Factor Assessment Total Risk Factor Score: 2 Thrombosis Risk Factor Assessment Level: Low Risk Assessment and Plan Plan: ST elevation myocardial infarction with three-vessel disease patient will need coronary artery bypass grafting was evaluated by cardiothoracic surgery patient the is undergoing workup for CABG. Patient is presently on dual antiplatelet therapy statin. Patient had depressed ejection fraction which is acute from his microinfarction 30-35%. -Acute systolic dysfunction without any pulmonary edema or volume overload. -Type 2 diabetes mellitus noncompliant with diet at home patient will be on sliding scale insulin for now -COPD without any acute exacerbation -Nicotine abuse: Patient is willing to quit smoking from now on. -Hypertension.
--- NOTE | 2017-12-09 15:50 | P.PN ---
Progress Note - Text Progress Note Date: 12/09/17 I reviewed the PFT on this patient, and it is consistent with severe chronic obstructive pulmonary disease, FEV1 is only 38%, suspect also some component of restrictive lung disease, patient is now considered relatively high operative risk, but no absolute contraindication to surgery.
[2017-12-09 17:03] LABS: Glucose,Whole Blood 254 mg/dL (75-99)
[2017-12-09 17:22] LABS: Hemoglobin A1C 10.8 % (4.0-6.0)
[2017-12-09] MEDS: HEPARIN SODIUM,PORCINE 5,000 UNIT/ML 1 ML VIAL IV PRN (17:44)
[2017-12-09 17:45] LABS: Hepatitis A Antibody IgM Non-Reactive (Non-Reactive); Hepatitis B Core IgM Non-Reactive (Non-Reactive)
[2017-12-09 21:28] LABS: Glucose,Whole Blood 176 mg/dL (75-99)
[2017-12-10] MEDS ORDERED: HEPARIN SODIUM,PORCINE 5,000 UNIT/ML 1 ML VIAL ONE (00:20)
[2017-12-10 05:47] LABS: Appearance,Urine Clear (Clear); Bilirubin,Urine Negative (Negative); Blood,Urine Negative (Negative); Color,Urine Light Yellow; Glucose,Urine (UA) 3+ (Negative); Ketones,Urine Negative (Negative); Leukocyte Esterase,Urine Negative (Negative); Mucus,Urine Rare /hpf; Nitrite,Urine Negative (Negative); PH, Urine 5.5 (5.0-8.0); Protein,Urine Negative (Negative); Specific Gravity,Urine 1.011 (1.001-1.035); Urobilinogen,Urine <2.0 mg/dL (<2.0)
[2017-12-10 06:07] LABS: Glucose,Whole Blood 190 mg/dL (75-99)
[2017-12-10 06:16] LABS: Basophils # (A) 0.1 k/uL (0-0.2); Basophils % (A) 1 %; Eosinophils # (A) 0.3 k/uL (0-0.7); Eosinophils % (A) 2 %; HCT 41.4 % (39.0-53.0); HGB 14.2 gm/dL (13.0-17.5); Lymphocytes # (A) 2.3 k/uL (1.0-4.8); Lymphocytes % (A) 20 %; MCH 28.1 pg (25.0-35.0); MCHC 34.2 g/dL (31.0-37.0); MCV 82.1 fL (80.0-100.0); Mean Platelet Volume 6.7; Monocytes # (A) 0.9 k/uL (0-1.0); Monocytes % (A) 7 %; Neutrophils # (A) 7.9 k/uL (1.3-7.7); Neutrophils % (A) 68 %; Platelet Count 274 k/uL (150-450); RBC 5.04 m/uL (4.30-5.90); RDW 13.5 % (11.5-15.5); WBC 11.6 k/uL (3.8-10.6)
[2017-12-10] MEDS: HEPARIN SODIUM,PORCINE 5,000 UNIT/ML 1 ML VIAL IV PRN ×3 (06:42→23:26)
[2017-12-10] MEDS: INSULIN ASPART 100 UNIT/ML 1 ML 10 ML VIAL SQ SCH ×4 (06:48→20:37)
[2017-12-10 06:49] LABS: Anion Gap 6 mmol/L; Blood Urea Nitrogen 11 mg/dL (9-20); Calcium 8.7 mg/dL (8.4-10.2); Carbon Dioxide 23 mmol/L (22-30); Chloride 106 mmol/L (98-107); Glucose 186 mg/dL (74-99); Sodium 135 mmol/L (137-145)
[2017-12-10] MEDS: ATORVASTATIN 80 MG TAB PO SCH (08:00)
[2017-12-10] MEDS: ASPIRIN 81 MG PO SCH (08:00)
[2017-12-10] MEDS: LOSARTAN 25 MG TAB PO SCH (08:00)
[2017-12-10] MEDS: METOPROLOL SUCCINATE (ER) 25 MG TAB.ER.24H PO SCH ×2 (08:00→20:31)
[2017-12-10] MEDS: MUPIROCIN 2% OINT 22 GM TUBE NASAL SCH ×2 (08:01→20:31)
[2017-12-10 11:54] LABS: Glucose,Whole Blood 147 mg/dL (75-99)
--- NOTE | 2017-12-10 12:07 | P.PN ---
Subjective Progress Note Date: 12/10/17 Principal diagnosis: Chest pain with significant coronary artery disease This is a 57-year-old white male, [id number]-jqco smoker, known history of mild COPD, type 2 diabetes, patient presented to the hospital with acute chest pain and discomfort, felt to have ST elevation myocardial infarction. Cardiac catheterization showed severe triple-vessel disease with occluded RCA chronically fills by collaterals from the left coronary system. Critical disease noted in the left circumflex and critical disease noted in the LAD. Considering the findings, patient was referred to cardiothoracic surgery, and he is being considered for myocardial revascularization. Patient denies chronic shortness of breath, denies any cough and wheezing. Has been a smoker over the years, and he was given 1 time by his primary care physician albuterol , but he rarely ever takes albuterol. He is relatively active physically, no dyspnea on exertion. No fever no chills no hemoptysis no chest pain until the time of his presentation. Patient denies any GI symptoms no nausea no vomiting up down pain no melena no hematemesis. No dysuria and no frequency no urgency. Denies any neurological symptoms. And no musculoskeletal symptoms. The patient is seen again today 12/10/2017 in follow-up on the selective care unit. He is currently awake and alert in no acute distress. He is resting quite comfortably in bed. He denies any chest discomfort, palpitations lightheadedness or dizziness. No shortness of breath, cough or congestion. He was found to have significant chronic obstructive pulmonary disease with FEV1 value 38% of predicted. He had been on Spiriva in the outpatient setting. He had a Ventolin HFA which he rarely used. Maintaining good O2 saturations in the low 90s on room air. He's been afebrile. He remains on a heparin drip. Objective - Vital Signs Vital signs: Vital Signs Temp 96.9 F L 12/10/17 08:00 Pulse 90 12/10/17 08:00 Resp 20 12/10/17 08:00 BP 100/55 12/10/17 08:00 Pulse Ox 92 L 12/10/17 08:00 Intake & Output 12/09/17 12/10/17 12/10/17 18:59 06:59 18:59 Intake Total 9662.639 2037.742 Output Total 1600 1300 Balance -62.245 254.742 Weight 82.8 kg Intake: IV 760 Sodium Chloride 0.45 % 160 500 ml @ 20 mls/hr IV . Q24H KISHA with Heparin Sodium,Porcine/D5w Pmx 25 ,000 unit Rx#:[id number] Sodium Chloride 0.9% 1, 600 000 ml @ 75 mls/hr IV . [id number] KISHA Rx#:[id number] Intake, IV Titration 97.755 1154.742 Amount Heparin Sod,Pork in 0.45% 97.755 329.742 NaCl 25,000 unit In 0.45 % NaCl 1 500ml.bag @ 11 UNITS/KG/HR 19.95 mls/hr IV .Q24H KISHA Rx#: [id number] Sodium Chloride 0.9% 1, 825 000 ml @ 75 mls/hr IV . [id number] KISHA Rx#:[id number] Oral 680 400 Output: Urine 1600 1300 Other: Voiding Method Urinal Toilet Urinal # Voids 1 1 - Exam GENERAL EXAM: Alert, active, comfortable in no apparent distress. HEAD: Normocephalic. EYES: Normal reaction of pupils, equal size. NOSE: Clear with pink turbinates. THROAT: No erythema or exudates. NECK: No masses, no JVD. CHEST: No chest wall deformity. LUNGS: Equal air entry with no crackles, wheeze, rhonchi or dullness. Diminished. CVS: S1 and S2 normal with no audible murmur, regular rhythm. ABDOMEN: No hepatosplenomegaly, normal bowel sounds, no guarding or rigidity. SPINE: No scoliosis or deformity SKIN: No rashes CENTRAL NERVOUS SYSTEM: No focal deficits, tone is normal in all 4 extremities. EXTREMITIES: There is no peripheral edema. No clubbing, no cyanosis. Peripheral pulses are intact. - Labs CBC & Chem 7: 12/10/17 05:44 12/10/17 05:44 Labs: Abnormal Lab Results - Last 24 Hours (Table) 12/09/17 12/09/17 12/09/17 Range/Units 03:20 11:56 16:46 WBC (3.8-10.6) k/uL Neutrophils # (1.3-7.7) k/uL APTT (22.0-30.0) sec Sodium (137-145) mmol/L Glucose (74-99) mg/dL POC Glucose (mg/dL) 248 H 254 H (75-99) mg/dL Hemoglobin A1c 10.8 H (4.0-6.0) % Urine Glucose (UA) (Negative) Urine Mucus (None) /hpf 12/09/17 12/09/17 12/10/17 Range/Units 21:26 23:10 00:30 WBC (3.8-10.6) k/uL Neutrophils # (1.3-7.7) k/uL APTT 32.7 H (22.0-30.0) sec Sodium (137-145) mmol/L Glucose (74-99) mg/dL POC Glucose (mg/dL) 176 H (75-99) mg/dL Hemoglobin A1c (4.0-6.0) % Urine Glucose (UA) 3+ H (Negative) Urine Mucus Rare H (None) /hpf 12/10/17 12/10/17 12/10/17 Range/Units 05:44 05:44 05:44 WBC 11.6 H (3.8-10.6) k/uL Neutrophils # 7.9 H (1.3-7.7) k/uL APTT 45.7 H (22.0-30.0) sec Sodium 135 L (137-145) mmol/L Glucose 186 H (74-99) mg/dL POC Glucose (mg/dL) (75-99) mg/dL Hemoglobin A1c (4.0-6.0) % Urine Glucose (UA) (Negative) Urine Mucus (None) /hpf 12/10/17 Range/Units 06:03 WBC (3.8-10.6) k/uL Neutrophils # (1.3-7.7) k/uL APTT (22.0-30.0) sec Sodium (137-145) mmol/L Glucose (74-99) mg/dL POC Glucose (mg/dL) 190 H (75-99) mg/dL Hemoglobin A1c (4.0-6.0) % Urine Glucose (UA) (Negative) Urine Mucus (None) /hpf Assessment and Plan Assessment: Impression: #1 Acute non-ST segment elevation myocardial infarction. #2 Coronary artery disease with chronic total occlusion of the right coronary artery in the midportion with collateral circulation from the left, critical disease involving the left circumflex in the midportion, critical disease involving the ramus intermedius and the proximal portion, critical disease involving the proximal LAD. The plan is for revascularization. Currently on a heparin drip. #3 Chronic and ongoing tobacco dependence. #4 Chronic obstructive pulmonary disease, Gold stage III with an FEV1 value 38% of predicted. On Spiriva and Ventolin in the outpatient setting. #5 Diabetes mellitus. #6 Hypertension. #7 Hyperlipidemia. #8 History of CVA/TIA. #9 Family history of coronary artery disease in a brother at 57 years old requiring 5 vessel bypass. Plan: The patient was seen and evaluated by Dr. Ly. He is currently stable from the pulmonary standpoint. He is again educated regarding the importance of complete smoking cessation. We'll continue with bronchodilators. He is educated regarding use of the incentive spirometer and cough and deep breathing exercises. We'll continue to follow and make further recommendations based on his clinical status. I, the cosigning physician, performed a history & physical examination of the patient. Lungs sounds are clear. Diminished. Maintaining good O2 saturations in the 90s on room air. I discussed the assessment and plan of care with my nurse practitioner, Yola Coronado. I attest to the above note as dictated by her.
--- NOTE | 2017-12-10 13:10 | P.PN ---
Subjective Progress Note Date: 12/10/17 his is a pleasant 57-year-old gentleman with history of diabetes who presented to the hospital complaining of chest discomfort and ruled in for acute coronary syndrome. He underwent a heart catheterization that revealed severe two- vessel CAD with occluded RCA chronically fills by collateral from the left coronary system, critical disease involving the left circumflex, and critical disease involving the left anterior descending artery. Giving his anatomy and being diabetic the patient was referred for coronary artery that is grafting . Patient has been seen by cardiothoracic surgery and is scheduled to undergo coronary bypass grafting surgery on Wednesday. He denies having any chest pain or chest discomfort. An echocardiogram was performed with revealed an ejection fraction of 30-35%. Large area of apical hypokinesia noted. Patient continues to be on IV heparin. Objective - Vital Signs Vital signs: Vital Signs Temp 97.7 F 12/10/17 11:39 Pulse 86 12/10/17 11:39 Resp 20 12/10/17 11:39 BP 101/60 12/10/17 11:39 Pulse Ox 91 L 12/10/17 11:39 Intake & Output 12/09/17 12/10/17 12/10/17 18:59 06:59 18:59 Intake Total 1048.412 9019.742 240 Output Total 1600 1300 Balance -62.245 254.742 240 Weight 82.8 kg 82.8 kg Intake: IV 760 Sodium Chloride 0.45 % 160 500 ml @ 20 mls/hr IV . Q24H KISHA with Heparin Sodium,Porcine/D5w Pmx 25 ,000 unit Rx#:[id number] Sodium Chloride 0.9% 1, 600 000 ml @ 75 mls/hr IV . [id number] KISHA Rx#:[id number] Intake, IV Titration 97.755 1154.742 Amount Heparin Sod,Pork in 0.45% 97.755 329.742 NaCl 25,000 unit In 0.45 % NaCl 1 500ml.bag @ 11 UNITS/KG/HR 19.95 mls/hr IV .Q24H KISHA Rx#: [id number] Sodium Chloride 0.9% 1, 825 000 ml @ 75 mls/hr IV . [id number] KISHA Rx#:[id number] Oral 680 400 240 Output: Urine 1600 1300 Other: Voiding Method Urinal Toilet Urinal # Voids 1 1 - Exam GENERAL EXAM: Alert, active, comfortable in no apparent distress. HEAD: Normocephalic. EYES: Normal reaction of pupils, equal size. NOSE: Clear with pink turbinates. THROAT: No erythema or exudates. NECK: No masses, no JVD. CHEST: No chest wall deformity. LUNGS: Equal air entry with no crackles, wheeze, rhonchi or dullness. Diminished. CVS: S1 and S2 normal with no audible murmur, regular rhythm. ABDOMEN: No hepatosplenomegaly, normal bowel sounds, no guarding or rigidity. SPINE: No scoliosis or deformity SKIN: No rashes CENTRAL NERVOUS SYSTEM: No focal deficits, tone is normal in all 4 extremities. EXTREMITIES: There is no peripheral edema. No clubbing, no cyanosis. Peripheral pulses are intact. - Labs CBC & Chem 7: 12/10/17 05:44 12/10/17 05:44 Labs: Abnormal Lab Results - Last 24 Hours (Table) 12/09/17 12/09/17 12/09/17 Range/Units 03:20 16:46 21:26 WBC (3.8-10.6) k/uL Neutrophils # (1.3-7.7) k/uL APTT (22.0-30.0) sec Sodium (137-145) mmol/L Glucose (74-99) mg/dL POC Glucose (mg/dL) 254 H 176 H (75-99) mg/dL Hemoglobin A1c 10.8 H (4.0-6.0) % Troponin I (0.000-0.034) ng/mL Urine Glucose (UA) (Negative) Urine Mucus (None) /hpf 12/09/17 12/10/17 12/10/17 Range/Units 23:10 00:30 05:44 WBC 11.6 H (3.8-10.6) k/uL Neutrophils # 7.9 H (1.3-7.7) k/uL APTT 32.7 H (22.0-30.0) sec Sodium (137-145) mmol/L Glucose (74-99) mg/dL POC Glucose (mg/dL) (75-99) mg/dL Hemoglobin A1c (4.0-6.0) % Troponin I (0.000-0.034) ng/mL Urine Glucose (UA) 3+ H (Negative) Urine Mucus Rare H (None) /hpf 12/10/17 12/10/17 12/10/17 Range/Units 05:44 05:44 05:44 WBC (3.8-10.6) k/uL Neutrophils # (1.3-7.7) k/uL APTT 45.7 H (22.0-30.0) sec Sodium 135 L (137-145) mmol/L Glucose 186 H (74-99) mg/dL POC Glucose (mg/dL) (75-99) mg/dL Hemoglobin A1c (4.0-6.0) % Troponin I 33.100 H* (0.000-0.034) ng/mL Urine Glucose (UA) (Negative) Urine Mucus (None) /hpf 12/10/17 12/10/17 12/10/17 Range/Units 06:03 11:51 12:13 WBC (3.8-10.6) k/uL Neutrophils # (1.3-7.7) k/uL APTT 42.5 H (22.0-30.0) sec Sodium (137-145) mmol/L Glucose (74-99) mg/dL POC Glucose (mg/dL) 190 H 147 H (75-99) mg/dL Hemoglobin A1c (4.0-6.0) % Troponin I (0.000-0.034) ng/mL Urine Glucose (UA) (Negative) Urine Mucus (None) /hpf Microbiology - Last 24 Hours (Table) 12/10/17 00:30 Urine Culture - Preliminary Urine,Clean Catch 12/09/17 18:12 Nasal Screen MRSA/MSSA - Preliminary Nasal Swab Assessment and Plan Plan: Assessment #1 acute coronary syndrome. #2 severe two-vessel CAD #3 diabetes #4 hyperlipidemia #5 ischemic cardiomyopathy Plan We will continue the patient on IV heparin. He is scheduled to undergo coronary artery bypass grafting surgery on Wednesday. We will continue to follow. DNP note has been reviewed, I agree with a documented findings and plan of care. Patient was seen and examined.
--- NOTE | 2017-12-10 13:24 | P.PN ---
Subjective Patient is admitted for rest elevation microinfarction found to have severe two- vessel disease in RCA and left circumflex with the significant collaterals to the left coronary system. Patient will undergo coronary artery bypass grafting patient's ejection fraction is that is that 5% patient is not in heart failure exacerbation. Constitutional: Denied any fatigue denied any fever. Cardio vascular: denied any chest pain, palpitations Gastrointestinal denied any nausea vomiting Pulmonary: Denied any shortness of breath cough Neurologic denied any new focal deficits Objective - Vital Signs Vital signs: Vital Signs Temp 97.7 F 12/10/17 11:39 Pulse 86 12/10/17 11:39 Resp 20 12/10/17 11:39 BP 101/60 12/10/17 11:39 Pulse Ox 91 L 12/10/17 11:39 Intake & Output 12/09/17 12/10/17 12/10/17 18:59 06:59 18:59 Intake Total 6056.568 4409.742 240 Output Total 1600 1300 Balance -62.245 254.742 240 Weight 82.8 kg 82.8 kg Intake: IV 760 Sodium Chloride 0.45 % 160 500 ml @ 20 mls/hr IV . Q24H KISHA with Heparin Sodium,Porcine/D5w Pmx 25 ,000 unit Rx#:[id number] Sodium Chloride 0.9% 1, 600 000 ml @ 75 mls/hr IV . [id number] KISHA Rx#:[id number] Intake, IV Titration 97.755 1154.742 Amount Heparin Sod,Pork in 0.45% 97.755 329.742 NaCl 25,000 unit In 0.45 % NaCl 1 500ml.bag @ 11 UNITS/KG/HR 19.95 mls/hr IV .Q24H KISHA Rx#: [id number] Sodium Chloride 0.9% 1, 825 000 ml @ 75 mls/hr IV . [id number] KISHA Rx#:[id number] Oral 680 400 240 Output: Urine 1600 1300 Other: Voiding Method Urinal Toilet Urinal # Voids 1 1 - Exam PHYSICAL EXAMINATION: GENERAL: The patient is alert and oriented x3, not in any acute distress. Well developed, well nourished. HEENT: Pupils are round and equally reacting to light. EOMI. No scleral icterus. No conjunctival pallor. Normocephalic, atraumatic. No pharyngeal erythema. No thyromegaly. CARDIOVASCULAR: S1 and S2 present. No murmurs, rubs, or gallops. PULMONARY: Chest is clear to auscultation, no wheezing or crackles. ABDOMEN: Soft, nontender, nondistended, normoactive bowel sounds. No palpable organomegaly. MUSCULOSKELETAL: No joint swelling or deformity. EXTREMITIES: No cyanosis, clubbing, or pedal edema. NEUROLOGICAL: Gross neurological examination did not reveal any focal deficits. SKIN: No rashes. - Labs CBC & Chem 7: 12/10/17 05:44 12/10/17 05:44 Labs: Abnormal Lab Results - Last 24 Hours (Table) 12/09/17 12/09/17 12/09/17 Range/Units 03:20 16:46 21:26 WBC (3.8-10.6) k/uL Neutrophils # (1.3-7.7) k/uL APTT (22.0-30.0) sec Sodium (137-145) mmol/L Glucose (74-99) mg/dL POC Glucose (mg/dL) 254 H 176 H (75-99) mg/dL Hemoglobin A1c 10.8 H (4.0-6.0) % Troponin I (0.000-0.034) ng/mL Urine Glucose (UA) (Negative) Urine Mucus (None) /hpf 12/09/17 12/10/17 12/10/17 Range/Units 23:10 00:30 05:44 WBC 11.6 H (3.8-10.6) k/uL Neutrophils # 7.9 H (1.3-7.7) k/uL APTT 32.7 H (22.0-30.0) sec Sodium (137-145) mmol/L Glucose (74-99) mg/dL POC Glucose (mg/dL) (75-99) mg/dL Hemoglobin A1c (4.0-6.0) % Troponin I (0.000-0.034) ng/mL Urine Glucose (UA) 3+ H (Negative) Urine Mucus Rare H (None) /hpf 12/10/17 12/10/17 12/10/17 Range/Units 05:44 05:44 05:44 WBC (3.8-10.6) k/uL Neutrophils # (1.3-7.7) k/uL APTT 45.7 H (22.0-30.0) sec Sodium 135 L (137-145) mmol/L Glucose 186 H (74-99) mg/dL POC Glucose (mg/dL) (75-99) mg/dL Hemoglobin A1c (4.0-6.0) % Troponin I 33.100 H* (0.000-0.034) ng/mL Urine Glucose (UA) (Negative) Urine Mucus (None) /hpf 12/10/17 12/10/17 12/10/17 Range/Units 06:03 11:51 12:13 WBC (3.8-10.6) k/uL Neutrophils # (1.3-7.7) k/uL APTT 42.5 H (22.0-30.0) sec Sodium (137-145) mmol/L Glucose (74-99) mg/dL POC Glucose (mg/dL) 190 H 147 H (75-99) mg/dL Hemoglobin A1c (4.0-6.0) % Troponin I (0.000-0.034) ng/mL Urine Glucose (UA) (Negative) Urine Mucus (None) /hpf Microbiology - Last 24 Hours (Table) 12/10/17 00:30 Urine Culture - Preliminary Urine,Clean Catch 12/09/17 18:12 Nasal Screen MRSA/MSSA - Preliminary Nasal Swab Assessment and Plan Plan: ST elevation myocardial infarction with three-vessel disease patient will need coronary artery bypass grafting was evaluated by cardiothoracic surgery patient the is undergoing workup for CABG. Patient is presently on dual antiplatelet therapy statin. Patient had depressed ejection fraction which is acute from his microinfarction 30-35%. -Acute systolic dysfunction without any pulmonary edema or volume overload. -Type 2 diabetes mellitus noncompliant with diet at home patient will be on sliding scale insulin for now -COPD without any acute exacerbation -Nicotine abuse: Patient is willing to quit smoking from now on. -Hypertension.
--- NOTE | 2017-12-10 15:17 | CDI ---
Last Revision, April 2017 Documentation Clarification Form Date: 12/10/17 From: Inna Moore rn Admit Date: 12/09/2017 2:38:00 AM Patient Name: Preston Li Visit Number: [id number] ATTENTION: The Clinical Documentation Specialists (CDI) and [facility] Coding Staff appreciate your assistance in clarifying documentation. Please respond to the clarification below the line at the bottom and electronically sign. The CDI & [facility] Coding staff will review the response and follow-up if needed. Please note: Queries are made part of the Legal Health Record. If you have any questions, please contact the author of this message via ITS. Dr. Stephan Motta, Conflicting documentation has been found in the medical record. On 12/09 patient had a cardiac cath. it states in that documentation "He was ruled in for acute non ST elevation myocardial infarction." Consult dated 12/09 Dr Ly "ST elevation myocardial infarction". Your H&P 12/09 states " ST elevation myocardial infarction." PN dated 12/10 "ST elevation myocardial infarction History/Risk Factors:smoker, COPD, DM 2, CVA/TIA, HTN, hyperlipidemia Patient presented to ED with chest pain Clinical Indicators: Chest pain radiating towards left shoulder to left arm Admission Trops.: 52.100 - 69.100 CKMB 128.0 EKG: ST elevation Echo: EF 30-25% Treatment: Heparin drip, Nitro drip Cardiac Cath. done on 12/09 CABG scheduled for Wednesday 12/13 In your opinion what is the most clinically appropriate diagnosis for this patient? STEMI NON STEMI Other explanation of clinical findings Unable to determine (no explanation for clinical findings) Please continue to document in your progress notes, under the line below and in the discharge summary in order to capture severity of illness and risk of mortality. Include clinical findings that support your diagnosis. MTDD
--- NOTE | 2017-12-10 15:38 | P.PN ---
Subjective Progress Note Date: 12/10/17 Principal diagnosis: Severe triple-vessel coronary artery disease, non-STEMI, diabetes mellitus type 2, hypertension, hyperlipidemia, CVA greater than 5 years ago, current tobacco dependence, COPD with a preoperative FEV1 of 38 percent of the predicted value, suspicion for obstructive sleep apnea, and history of premature coronary artery disease with his brother having a 5 vessel bypass at age 57. The patient is sitting up to the bedside chair. He is in no acute distress. He denies any further complaints of chest discomfort or shortness of breath. He remains on heparin drip per protocol. He is demonstrating good use on his incentive spirometry and achieving 2250 mL. Bedside FEV1 was completed and was 38% of the predicted value. Objective - Vital Signs Vital signs: Vital Signs Temp 97.7 F 12/10/17 11:39 Pulse 86 12/10/17 11:39 Resp 20 12/10/17 11:39 BP 101/60 12/10/17 11:39 Pulse Ox 91 L 12/10/17 11:39 Intake & Output 12/09/17 12/10/17 12/10/17 18:59 06:59 18:59 Intake Total 8524.609 1992.742 828.503 Output Total 1600 1300 Balance -62.245 254.742 828.503 Weight 82.8 kg 82.8 kg Intake: IV 760 Sodium Chloride 0.45 % 160 500 ml @ 20 mls/hr IV . Q24H KISHA with Heparin Sodium,Porcine/D5w Pmx 25 ,000 unit Rx#:[id number] Sodium Chloride 0.9% 1, 600 000 ml @ 75 mls/hr IV . [id number] KISHA Rx#:[id number] Intake, IV Titration 97.755 1154.742 348.503 Amount Heparin Sod,Pork in 0.45% 97.755 329.742 72.503 NaCl 25,000 unit In 0.45 % NaCl 1 500ml.bag @ 11 UNITS/KG/HR 19.95 mls/hr IV .Q24H KISHA Rx#: [id number] Heparin Sodium,Porcine 5, 276 000 unit In Sodium Chloride 0.9% 500 ml @ As Directed IV ONCE ONE Rx# :[id number] Sodium Chloride 0.9% 1, 825 000 ml @ 75 mls/hr IV . [id number] KISHA Rx#:[id number] Oral 680 400 480 Output: Urine 1600 1300 Other: Voiding Method Urinal Toilet Urinal # Voids 1 1 - Constitutional General appearance: Present: cooperative, no acute distress, obese - Respiratory Details: Lung sounds are essentially clear throughout, diminished to his bilateral bases. Respirations are symmetrical and nonlabored. Oxygen saturation are 91% on room air. He is achieving 2250 mL on his incentive spirometry. - Cardiovascular Details: Regular rhythm and rate. S1 and S2 present, negative for S3, gallop or murmur. Remote telemetry showing normal sinus rhythm heart rate 93. No edema present. - Gastrointestinal Gastrointestinal Comment(s): Abdomen is soft, nontender nondistended. Active bowel sounds to all 4 abdominal quadrants. No organomegaly. No guarding or rigidity. - Genitourinary Genitourinary Comment(s): Voiding clear yellow urine. - Integumentary Integumentary Comment(s): Skin is warm and dry. No clubbing or cyanosis present. No rash or abnormal pigmentation present. - Neurologic Neurologic: Present: CNII-XII intact - Musculoskeletal Musculoskeletal: Present: gait normal, strength equal bilaterally - Psychiatric Psychiatric: Present: A&O x's 3, appropriate affect, intact judgment & insight - Allied health notes Allied health notes reviewed: nursing - Labs CBC & Chem 7: 12/10/17 05:44 12/10/17 05:44 Labs: Abnormal Lab Results - Last 24 Hours (Table) 12/09/17 12/09/17 12/09/17 Range/Units 03:20 16:46 21:26 WBC (3.8-10.6) k/uL Neutrophils # (1.3-7.7) k/uL APTT (22.0-30.0) sec Sodium (137-145) mmol/L Glucose (74-99) mg/dL POC Glucose (mg/dL) 254 H 176 H (75-99) mg/dL Hemoglobin A1c 10.8 H (4.0-6.0) % Troponin I (0.000-0.034) ng/mL Urine Glucose (UA) (Negative) Urine Mucus (None) /hpf 12/09/17 12/10/17 12/10/17 Range/Units 23:10 00:30 05:44 WBC 11.6 H (3.8-10.6) k/uL Neutrophils # 7.9 H (1.3-7.7) k/uL APTT 32.7 H (22.0-30.0) sec Sodium (137-145) mmol/L Glucose (74-99) mg/dL POC Glucose (mg/dL) (75-99) mg/dL Hemoglobin A1c (4.0-6.0) % Troponin I (0.000-0.034) ng/mL Urine Glucose (UA) 3+ H (Negative) Urine Mucus Rare H (None) /hpf 12/10/17 12/10/17 12/10/17 Range/Units 05:44 05:44 05:44 WBC (3.8-10.6) k/uL Neutrophils # (1.3-7.7) k/uL APTT 45.7 H (22.0-30.0) sec Sodium 135 L (137-145) mmol/L Glucose 186 H (74-99) mg/dL POC Glucose (mg/dL) (75-99) mg/dL Hemoglobin A1c (4.0-6.0) % Troponin I 33.100 H* (0.000-0.034) ng/mL Urine Glucose (UA) (Negative) Urine Mucus (None) /hpf 12/10/17 12/10/17 12/10/17 Range/Units 06:03 11:51 12:13 WBC (3.8-10.6) k/uL Neutrophils # (1.3-7.7) k/uL APTT 42.5 H (22.0-30.0) sec Sodium (137-145) mmol/L Glucose (74-99) mg/dL POC Glucose (mg/dL) 190 H 147 H (75-99) mg/dL Hemoglobin A1c (4.0-6.0) % Troponin I (0.000-0.034) ng/mL Urine Glucose (UA) (Negative) Urine Mucus (None) /hpf Microbiology - Last 24 Hours (Table) 12/10/17 00:30 Urine Culture - Preliminary Urine,Clean Catch 12/09/17 18:12 Nasal Screen MRSA/MSSA - Preliminary Nasal Swab - Imaging and Cardiology Chest x-ray: report reviewed, image reviewed Assessment and Plan (1) Acute coronary syndrome Current Visit: Yes Status: Acute Code(s): I24.9 - ACUTE ISCHEMIC HEART DISEASE, UNSPECIFIED SNOMED Code(s): 375530753 (2) Non-STEMI (non-ST elevated myocardial infarction) Current Visit: Yes Status: Acute Code(s): I21.4 - NON-ST ELEVATION (NSTEMI) MYOCARDIAL INFARCTION SNOMED Code(s): 107049851 (3) Diabetes mellitus Current Visit: Yes Status: Chronic Code(s): E11.9 - TYPE 2 DIABETES MELLITUS WITHOUT COMPLICATIONS SNOMED Code(s): 54078640 (4) Family history of premature coronary artery disease Current Visit: Yes Status: Chronic Code(s): Z82.49 - FAMILY HX OF ISCHEM HEART DIS AND OTH DIS OF THE CIRC SYS SNOMED Code(s): 535788227 (5) Hyperlipidemia Current Visit: Yes Status: Chronic Code(s): E78.5 - HYPERLIPIDEMIA, UNSPECIFIED SNOMED Code(s): 66534424 (6) Hypertension Current Visit: Yes Status: Chronic Code(s): I10 - ESSENTIAL (PRIMARY) HYPERTENSION SNOMED Code(s): 99855172 (7) Tobacco dependence Current Visit: Yes Status: Chronic Code(s): F17.200 - NICOTINE DEPENDENCE, UNSPECIFIED, UNCOMPLICATED SNOMED Code(s): 42433712 (8) History of stroke Current Visit: No Status: Resolved Code(s): Z86.73 - PRSNL HX OF TIA (TIA), AND CEREB INFRC W/O RESID DEFICITS SNOMED Code(s): 942266286 Plan: 1. Preoperative teaching reviewed with the patient and his . 2. Importance of smoking cessation was reviewed with the patient. 3. STS risk score was calculated and discussed with the patient by Dr. Roth. 4. Continue aspirin, statin, beta suzie and heparin drip per protocol. 5. The patient will be scheduled for myocardial revascularization surgery with KEBEDE, left radial artery endoscopic harvesting, EVH, intraoperative JARED and epi- aortic scanning for 12/13/2017 to be performed by Dr. Samantha Roth. 6. Encourage use of his incentive spirometry every hour while awake. 7. Medical management/diabetes management per primary care service. 8. Pulmonary management recommendations per Dr. Ly. 9. Nothing by mouth after midnight on 12/13/2017. 10. Discontinue his heparin drip 2 hours before his myocardial revascularization surgery. 11. More recommendations to follow based on patient's medical course. Time with Patient: Greater than 30
[2017-12-10 16:41] LABS: Glucose,Whole Blood 178 mg/dL (75-99)
[2017-12-10] MEDS: HEPARIN SOD,PORK IN 0.45% NACL 25,000 UNIT in 0.45% NACL 1 500ML.BAG IV SCH (17:05)
[2017-12-10] MEDS: IPRATROPIUM-ALBUTEROL 3 ML NEB INHALATION SCH (19:11)
[2017-12-10 20:33] LABS: Glucose,Whole Blood 245 mg/dL (75-99)
[2017-12-11 06:25] LABS: Basophils # (A) 0.1 k/uL (0-0.2); Basophils % (A) 1 %; Eosinophils # (A) 0.3 k/uL (0-0.7); Eosinophils % (A) 3 %; HCT 41.8 % (39.0-53.0); HGB 14.1 gm/dL (13.0-17.5); Lymphocytes # (A) 2.9 k/uL (1.0-4.8); Lymphocytes % (A) 27 %; MCH 27.9 pg (25.0-35.0); MCHC 33.8 g/dL (31.0-37.0); MCV 82.6 fL (80.0-100.0); Mean Platelet Volume 6.4; Monocytes # (A) 0.8 k/uL (0-1.0); Monocytes % (A) 8 %; Neutrophils # (A) 6.5 k/uL (1.3-7.7); Neutrophils % (A) 60 %; Platelet Count 283 k/uL (150-450); RBC 5.06 m/uL (4.30-5.90); RDW 13.5 % (11.5-15.5); WBC 10.8 k/uL (3.8-10.6)
[2017-12-11 06:29] LABS: Glucose,Whole Blood 169 mg/dL (75-99)
[2017-12-11] MEDS: HEPARIN SOD,PORK IN 0.45% NACL 25,000 UNIT in 0.45% NACL 1 500ML.BAG IV SCH ×2 (06:31→18:36)
[2017-12-11] MEDS: INSULIN ASPART 100 UNIT/ML 1 ML 10 ML VIAL SQ SCH ×4 (06:47→21:04)
[2017-12-11 07:00] LABS: Anion Gap 8 mmol/L; Blood Urea Nitrogen 12 mg/dL (9-20); Calcium 9.3 mg/dL (8.4-10.2); Carbon Dioxide 23 mmol/L (22-30); Chloride 107 mmol/L (98-107); Glucose 144 mg/dL (74-99); Potassium 4.3 mmol/L (3.5-5.1); Sodium 138 mmol/L (137-145)
[2017-12-11] MEDS: IPRATROPIUM-ALBUTEROL 3 ML NEB INHALATION SCH ×4 (08:20→18:55)
[2017-12-11] MEDS: LOSARTAN 25 MG TAB PO SCH (09:00)
[2017-12-11] MEDS: METOPROLOL SUCCINATE (ER) 25 MG TAB.ER.24H PO SCH ×2 (09:00→19:51)
[2017-12-11] MEDS: ATORVASTATIN 80 MG TAB PO SCH (09:00)
[2017-12-11] MEDS: ASPIRIN 81 MG PO SCH (09:00)
[2017-12-11] MEDS: MUPIROCIN 2% OINT 22 GM TUBE NASAL SCH ×2 (09:01→19:51)
[2017-12-11 11:41] LABS: Glucose,Whole Blood 190 mg/dL (75-99)
--- NOTE | 2017-12-11 12:09 | P.PN ---
Subjective Progress Note Date: 12/11/17 Principal diagnosis: Severe triple-vessel coronary artery disease, non-STEMI, diabetes mellitus type 2, hypertension, hyperlipidemia, CVA greater than 5 years ago, current tobacco dependence, COPD with a preoperative FEV1 of 38 percent of the predicted value, suspicion for obstructive sleep apnea, and history of premature coronary artery disease with his brother having a 5 vessel bypass at age 57. The patient is sitting up to the bedside chair. He is in no acute distress. He denies any further complaints of chest discomfort or shortness of breath. He remains on heparin drip per protocol. He is demonstrating good use on his incentive spirometry and achieving 2250 mL. He report is been up ambulating the hallway without difficulty. Objective - Vital Signs Vital signs: Vital Signs Temp 98 F 12/11/17 08:55 Pulse 90 12/11/17 08:55 Resp 18 12/11/17 08:55 BP 104/58 12/11/17 08:55 Pulse Ox 90 L 12/11/17 08:55 Intake & Output 12/10/17 12/11/17 12/11/17 18:59 06:59 18:59 Intake Total 1068.503 912.519 Output Total 1600 Balance 1068.503 -687.481 Weight 82.8 kg 82.6 kg Intake: Intake, IV Titration 348.503 512.519 Amount Heparin Sod,Pork in 0.45% 72.503 512.519 NaCl 25,000 unit In 0.45 % NaCl 1 500ml.bag @ 11 UNITS/KG/HR 19.95 mls/hr IV .[facility]H [facility] Rx#: [id number] Heparin Sodium,Porcine 5, 276 000 unit In Sodium Chloride 0.9% 500 ml @ As Directed IV ONCE ONE Rx# :[id number] Oral 720 400 Output: Urine 1600 Other: Voiding Method Toilet Urinal - Constitutional General appearance: Present: cooperative, no acute distress - Respiratory Details: Lungs sounds are essentially clear throughout, diminished bilateral bases. Respirations are symmetrical nonlabored. Oxygen saturation are 90% on room air. He is achieving 2250 mL on his incentive spirometry with encouragement. - Cardiovascular Details: Regular rhythm and rate. S1 and S2 present, negative for S3, gallop or murmur. No edema present. Remote telemetry showing normal sinus rhythm heart rate 88. Sequential compression devices in place was bilateral lower extremities. - Gastrointestinal Gastrointestinal Comment(s): Abdomen is soft, nontender nondistended. Active bowel sounds all 4 abdominal quadrants. Passing flatus. Tolerating oral intake. No guarding or rigidity. No organomegaly. - Genitourinary Genitourinary Comment(s): Voiding clear yellow urine. - Integumentary Integumentary Comment(s): Skin is warm and dry. No clubbing or cyanosis present. No rash or abnormal pigmentation present. - Neurologic Neurologic Comment(s): No focal deficits. Neurologic: Present: CNII-XII intact - Musculoskeletal Musculoskeletal: Present: gait normal, strength equal bilaterally - Psychiatric Psychiatric: Present: A&O x's 3, appropriate affect, intact judgment & insight - Allied health notes Allied health notes reviewed: nursing - Labs CBC & Chem 7: 12/11/17 05:37 12/11/17 05:37 Labs: Abnormal Lab Results - Last 24 Hours (Table) 12/10/17 12/10/17 12/10/17 Range/Units 05:44 11:51 12:13 WBC (3.8-10.6) k/uL APTT 42.5 H (22.0-30.0) sec Glucose (74-99) mg/dL POC Glucose (mg/dL) 147 H (75-99) mg/dL Troponin I 33.100 H* (0.000-0.034) ng/mL 12/10/17 12/10/17 12/10/17 Range/Units 16:37 20:31 22:50 WBC (3.8-10.6) k/uL APTT 43.3 H (22.0-30.0) sec Glucose (74-99) mg/dL POC Glucose (mg/dL) 178 H 245 H (75-99) mg/dL Troponin I (0.000-0.034) ng/mL 12/11/17 12/11/17 12/11/17 Range/Units 05:37 05:37 05:37 WBC 10.8 H (3.8-10.6) k/uL APTT 56.4 H (22.0-30.0) sec Glucose 144 H (74-99) mg/dL POC Glucose (mg/dL) (75-99) mg/dL Troponin I (0.000-0.034) ng/mL 12/11/17 Range/Units 06:27 WBC (3.8-10.6) k/uL APTT (22.0-30.0) sec Glucose (74-99) mg/dL POC Glucose (mg/dL) 169 H (75-99) mg/dL Troponin I (0.000-0.034) ng/mL Microbiology - Last 24 Hours (Table) 12/10/17 00:30 Urine Culture - Preliminary Urine,Clean Catch 12/09/17 18:12 Nasal Screen MRSA/MSSA - Preliminary Nasal Swab Assessment and Plan (1) Acute coronary syndrome Current Visit: Yes Status: Acute Code(s): I24.9 - ACUTE ISCHEMIC HEART DISEASE, UNSPECIFIED SNOMED Code(s): 226302385 (2) Non-STEMI (non-ST elevated myocardial infarction) Current Visit: Yes Status: Acute Code(s): I21.4 - NON-ST ELEVATION (NSTEMI) MYOCARDIAL INFARCTION SNOMED Code(s): 611581967 (3) Diabetes mellitus Current Visit: Yes Status: Chronic Code(s): E11.9 - TYPE 2 DIABETES MELLITUS WITHOUT COMPLICATIONS SNOMED Code(s): 73016816 (4) Family history of premature coronary artery disease Current Visit: Yes Status: Chronic Code(s): Z82.49 - FAMILY HX OF ISCHEM HEART DIS AND OTH DIS OF THE CIRC SYS SNOMED Code(s): 759994748 (5) Hyperlipidemia Current Visit: Yes Status: Chronic Code(s): E78.5 - HYPERLIPIDEMIA, UNSPECIFIED SNOMED Code(s): 92231128 (6) Hypertension Current Visit: Yes Status: Chronic Code(s): I10 - ESSENTIAL (PRIMARY) HYPERTENSION SNOMED Code(s): 69731022 (7) Tobacco dependence Current Visit: Yes Status: Chronic Code(s): F17.200 - NICOTINE DEPENDENCE, UNSPECIFIED, UNCOMPLICATED SNOMED Code(s): 31962926 (8) History of stroke Current Visit: No Status: Resolved Code(s): Z86.73 - PRSNL HX OF TIA (TIA), AND CEREB INFRC W/O RESID DEFICITS SNOMED Code(s): 998492491 Plan: 1. Preoperative teaching reviewed and reinforced with the patient and his . 2. Importance of smoking cessation was reviewed with the patient. 3. STS risk score was calculated and discussed with the patient by Dr. Roth on 12/10/2017. 4. Continue aspirin, statin, beta suzie and heparin drip per protocol. 5. The patient will be scheduled for myocardial revascularization surgery with KEBEDE, left radial artery endoscopic harvesting, EVH, intraoperative JARED and epi- aortic scanning for 12/13/2017 to be performed by Dr. Samantha Roth. 6. Encourage use of his incentive spirometry every hour while awake. 7. Medical management/diabetes management per primary care service. 8. Pulmonary management recommendations per Dr. Ly. 9. Nothing by mouth after midnight on 12/13/2017. 10. Discontinue his heparin drip 2 hours before his myocardial revascularization surgery. 11. 5 m walk test completed time 1: 6.08, Time 2: 5.36, Time 3: 5.25. 12. More recommendations to follow based on patient's medical course. Time with Patient: Greater than 30
--- NOTE | 2017-12-11 12:30 | P.PN ---
Subjective Progress Note Date: 12/11/17 Principal diagnosis: Acute coronary syndrome This is a 57-year-old white male, 69-eerd-lteg smoker, known history of mild COPD, type 2 diabetes, patient presented to the hospital with acute chest pain and discomfort, felt to have ST elevation myocardial infarction. Cardiac catheterization showed severe triple-vessel disease with occluded RCA chronically fills by collaterals from the left coronary system. Critical disease noted in the left circumflex and critical disease noted in the LAD. Considering the findings, patient was referred to cardiothoracic surgery, and he is being considered for myocardial revascularization. Patient denies chronic shortness of breath, denies any cough and wheezing. Has been a smoker over the years, and he was given 1 time by his primary care physician albuterol , but he rarely ever takes albuterol. He is relatively active physically, no dyspnea on exertion. No fever no chills no hemoptysis no chest pain until the time of his presentation. Patient denies any GI symptoms no nausea no vomiting up down pain no melena no hematemesis. No dysuria and no frequency no urgency. Denies any neurological symptoms. And no musculoskeletal symptoms. The patient is seen again today 12/10/2017 in follow-up on the selective care unit. He is currently awake and alert in no acute distress. He is resting quite comfortably in bed. He denies any chest discomfort, palpitations lightheadedness or dizziness. No shortness of breath, cough or congestion. He was found to have significant chronic obstructive pulmonary disease with FEV1 value 38% of predicted. He had been on Spiriva in the outpatient setting. He had a Ventolin HFA which he rarely used. Maintaining good O2 saturations in the low 90s on room air. He's been afebrile. He remains on a heparin drip. Patient was reevaluated today on 12/11/2017, he remains on selective, monitor bed , asymptomatic, denies any chest pain no cough no wheezing no nausea no vomiting no abdominal pain. Patient is on bronchodilators, his FEV1 baseline is 38%, and he is considered relatively high operative risk, surgery is planned for Wednesday. Clinically the patient has no active pulmonary symptoms whatsoever. Objective - Vital Signs Vital signs: Vital Signs Temp 98 F 12/11/17 08:55 Pulse 90 12/11/17 12:24 Resp 18 12/11/17 08:55 BP 104/58 12/11/17 08:55 Pulse Ox 90 L 12/11/17 08:55 Intake & Output 12/10/17 12/11/17 12/11/17 18:59 06:59 18:59 Intake Total 1068.503 912.519 Output Total 1600 Balance 1068.503 -687.481 Weight 82.8 kg 82.6 kg Intake: Intake, IV Titration 348.503 512.519 Amount Heparin Sod,Pork in 0.45% 72.503 512.519 NaCl 25,000 unit In 0.45 % NaCl 1 500ml.bag @ 11 UNITS/KG/HR 19.95 mls/hr IV .Q24H [facility] Rx#: [id number] Heparin Sodium,Porcine 5, 276 000 unit In Sodium Chloride 0.9% 500 ml @ As Directed IV ONCE ONE Rx# :[id number] Oral 720 400 Output: Urine 1600 Other: Voiding Method Toilet Urinal - Exam Physical Exam: Revealed a 57-year-old white male in no distress. Head:, Atraumatic, normocephalic. HEENT:[Neck is supple.] [No neck masses.] [No thyromegaly.] [No JVD.] Chest: [Clear throughout, no crackles, no rhonchi, no wheezes.] Cardiac Exam: [Normal S1 and S2, no S3 gallop, no murmur.] Abdomen: [Soft, nontender, no megaly, no rebound, no guarding, normal bowel sounds.] Extremities: [No clubbing, no edema, no cyanosis.] Neurological Exam: [No focal neurologic deficit. Psychiatric: Normal mood affect and mental status examination. Pharynx: No lymphadenopathy.] - Labs CBC & Chem 7: 12/11/17 05:37 12/11/17 05:37 Labs: Abnormal Lab Results - Last 24 Hours (Table) 12/10/17 12/10/17 12/10/17 Range/Units 12:13 16:37 20:31 WBC (3.8-10.6) k/uL APTT 42.5 H (22.0-30.0) sec Glucose (74-99) mg/dL POC Glucose (mg/dL) 178 H 245 H (75-99) mg/dL 12/10/17 12/11/17 12/11/17 Range/Units 22:50 05:37 05:37 WBC 10.8 H (3.8-10.6) k/uL APTT 43.3 H 56.4 H (22.0-30.0) sec Glucose (74-99) mg/dL POC Glucose (mg/dL) (75-99) mg/dL 12/11/17 12/11/17 12/11/17 Range/Units 05:37 06:27 11:38 WBC (3.8-10.6) k/uL APTT (22.0-30.0) sec Glucose 144 H (74-99) mg/dL POC Glucose (mg/dL) 169 H 190 H (75-99) mg/dL Microbiology - Last 24 Hours (Table) 12/10/17 00:30 Urine Culture - Final Urine,Clean Catch 12/09/17 18:12 Nasal Screen MRSA/MSSA - Preliminary Nasal Swab Assessment and Plan Assessment: Impression: 1 acute coronary syndrome 2 2 vessel coronary artery disease, as noted on his cardiac catheterization. 3 suspect mild COPD, however the patient is relatively asymptomatic. 4 tobacco dependence syndrome and the patient was counseled regarding smoking cessation. Recommendation: Continue present treatment plan, patient is considered high operative risk based on his pulmonary status and based on his LV function. Again his baseline FEV1 is 38% of the predicted. Clinically however the patient is asymptomatic. Continue incentive spirometry, continue bronchodilators, all labs and diagnostic studies were reviewed. Including the PFT. Time with Patient: Less than 30
--- NOTE | 2017-12-11 13:34 | P.PN ---
Subjective Progress Note Date: 12/11/17 his is a pleasant 57-year-old gentleman with history of diabetes who presented to the hospital complaining of chest discomfort and ruled in for acute coronary syndrome. He underwent a heart catheterization that revealed severe two- vessel CAD with occluded RCA chronically fills by collateral from the left coronary system, critical disease involving the left circumflex, and critical disease involving the left anterior descending artery. Giving his anatomy and being diabetic the patient was referred for coronary artery that is grafting . Patient has been seen by cardiothoracic surgery and is scheduled to undergo coronary bypass grafting surgery on Wednesday. He denies having any chest pain or chest discomfort. An echocardiogram was performed with revealed an ejection fraction of 30-35%. Large area of apical hypokinesia noted. Patient continues to be on IV heparin. 12/11/2017 Patient seen and examined this morning, denies any chest pain or difficulty in breathing. Hemodynamically stable. Blood pressure 112/60 with a heart rate in the 60s, 94% on room air. Continues to be on IV heparin. Objective - Vital Signs Vital signs: Vital Signs Temp 98 F 12/11/17 08:55 Pulse 90 12/11/17 12:24 Resp 16 12/11/17 12:00 BP 112/68 12/11/17 12:00 Pulse Ox 94 L 12/11/17 12:00 Intake & Output 12/10/17 12/11/17 12/11/17 18:59 06:59 18:59 Intake Total 1068.503 912.519 Output Total 1600 Balance 1068.503 -687.481 Weight 82.8 kg 82.6 kg Intake: Intake, IV Titration 348.503 512.519 Amount Heparin Sod,Pork in 0.45% 72.503 512.519 NaCl 25,000 unit In 0.45 % NaCl 1 500ml.bag @ 11 UNITS/KG/HR 19.95 mls/hr IV .Q24H [facility] Rx#: [id number] Heparin Sodium,Porcine 5, 276 000 unit In Sodium Chloride 0.9% 500 ml @ As Directed IV ONCE ONE Rx# :[id number] Oral 720 400 Output: Urine 1600 Other: Voiding Method Toilet Urinal - Exam GENERAL EXAM: Alert, active, comfortable in no apparent distress. HEAD: Normocephalic. EYES: Normal reaction of pupils, equal size. NOSE: Clear with pink turbinates. THROAT: No erythema or exudates. NECK: No masses, no JVD. CHEST: No chest wall deformity. LUNGS: Equal air entry with no crackles, wheeze, rhonchi or dullness. Diminished. CVS: S1 and S2 normal with no audible murmur, regular rhythm. ABDOMEN: No hepatosplenomegaly, normal bowel sounds, no guarding or rigidity. SPINE: No scoliosis or deformity SKIN: No rashes CENTRAL NERVOUS SYSTEM: No focal deficits, tone is normal in all 4 extremities. EXTREMITIES: There is no peripheral edema. No clubbing, no cyanosis. Peripheral pulses are intact. - Labs CBC & Chem 7: 12/11/17 05:37 12/11/17 05:37 Labs: Abnormal Lab Results - Last 24 Hours (Table) 12/10/17 12/10/17 12/10/17 Range/Units 16:37 20:31 22:50 WBC (3.8-10.6) k/uL APTT 43.3 H (22.0-30.0) sec Glucose (74-99) mg/dL POC Glucose (mg/dL) 178 H 245 H (75-99) mg/dL 12/11/17 12/11/17 12/11/17 Range/Units 05:37 05:37 05:37 WBC 10.8 H (3.8-10.6) k/uL APTT 56.4 H (22.0-30.0) sec Glucose 144 H (74-99) mg/dL POC Glucose (mg/dL) (75-99) mg/dL 12/11/17 12/11/17 Range/Units 06:27 11:38 WBC (3.8-10.6) k/uL APTT (22.0-30.0) sec Glucose (74-99) mg/dL POC Glucose (mg/dL) 169 H 190 H (75-99) mg/dL Microbiology - Last 24 Hours (Table) 12/10/17 00:30 Urine Culture - Final Urine,Clean Catch 12/09/17 18:12 Nasal Screen MRSA/MSSA - Preliminary Nasal Swab Assessment and Plan Plan: Assessment #1 acute coronary syndrome. #2 severe two-vessel CAD #3 diabetes #4 hyperlipidemia #5 ischemic cardiomyopathy Plan We will continue the patient on IV heparin. He is scheduled to undergo coronary artery bypass grafting surgery on Wednesday. We will continue to follow. DNP note has been reviewed, I agree with a documented findings and plan of care. Patient was seen and examined.
--- NOTE | 2017-12-11 13:57 | P.PN ---
Subjective Patient is admitted for rest elevation microinfarction found to have severe two- vessel disease in RCA and left circumflex with the significant collaterals to the left coronary system. Patient will undergo coronary artery bypass grafting patient's ejection fraction is that is that 5% patient is not in heart failure exacerbation. 12/11/2017 No overnight events Constitutional: Denied any fatigue denied any fever. Cardio vascular: denied any chest pain, palpitations Gastrointestinal denied any nausea vomiting Pulmonary: Denied any shortness of breath cough Neurologic denied any new focal deficits Objective - Vital Signs Vital signs: Vital Signs Temp 98 F 12/11/17 08:55 Pulse 90 12/11/17 12:24 Resp 16 12/11/17 12:00 BP 112/68 12/11/17 12:00 Pulse Ox 94 L 12/11/17 12:00 Intake & Output 12/10/17 12/11/17 12/11/17 18:59 06:59 18:59 Intake Total 1068.503 912.519 Output Total 1600 Balance 1068.503 -687.481 Weight 82.8 kg 82.6 kg Intake: Intake, IV Titration 348.503 512.519 Amount Heparin Sod,Pork in 0.45% 72.503 512.519 NaCl 25,000 unit In 0.45 % NaCl 1 500ml.bag @ 11 UNITS/KG/HR 19.95 mls/hr IV .Q24H [facility] Rx#: [id number] Heparin Sodium,Porcine 5, 276 000 unit In Sodium Chloride 0.9% 500 ml @ As Directed IV ONCE ONE Rx# :[id number] Oral 720 400 Output: Urine 1600 Other: Voiding Method Toilet Urinal - Exam PHYSICAL EXAMINATION: GENERAL: The patient is alert and oriented x3, not in any acute distress. Well developed, well nourished. HEENT: Pupils are round and equally reacting to light. EOMI. No scleral icterus. No conjunctival pallor. Normocephalic, atraumatic. No pharyngeal erythema. No thyromegaly. CARDIOVASCULAR: S1 and S2 present. No murmurs, rubs, or gallops. PULMONARY: Chest is clear to auscultation, no wheezing or crackles. ABDOMEN: Soft, nontender, nondistended, normoactive bowel sounds. No palpable organomegaly. MUSCULOSKELETAL: No joint swelling or deformity. EXTREMITIES: No cyanosis, clubbing, or pedal edema. NEUROLOGICAL: Gross neurological examination did not reveal any focal deficits. SKIN: No rashes. - Labs CBC & Chem 7: 12/11/17 05:37 12/11/17 05:37 Labs: Abnormal Lab Results - Last 24 Hours (Table) 12/10/17 12/10/17 12/10/17 Range/Units 16:37 20:31 22:50 WBC (3.8-10.6) k/uL APTT 43.3 H (22.0-30.0) sec Glucose (74-99) mg/dL POC Glucose (mg/dL) 178 H 245 H (75-99) mg/dL 12/11/17 12/11/17 12/11/17 Range/Units 05:37 05:37 05:37 WBC 10.8 H (3.8-10.6) k/uL APTT 56.4 H (22.0-30.0) sec Glucose 144 H (74-99) mg/dL POC Glucose (mg/dL) (75-99) mg/dL 12/11/17 12/11/17 Range/Units 06:27 11:38 WBC (3.8-10.6) k/uL APTT (22.0-30.0) sec Glucose (74-99) mg/dL POC Glucose (mg/dL) 169 H 190 H (75-99) mg/dL Microbiology - Last 24 Hours (Table) 12/10/17 00:30 Urine Culture - Final Urine,Clean Catch 12/09/17 18:12 Nasal Screen MRSA/MSSA - Preliminary Nasal Swab Assessment and Plan Plan: ST elevation myocardial infarction with three-vessel disease patient will need coronary artery bypass grafting was evaluated by cardiothoracic surgery patient the is undergoing workup for CABG. Patient is presently on dual antiplatelet therapy statin. Patient had depressed ejection fraction which is acute from his microinfarction 30-35%. -Acute systolic dysfunction without any pulmonary edema or volume overload. -Type 2 diabetes mellitus noncompliant with diet at home patient will be on sliding scale insulin for now -COPD without any acute exacerbation -Nicotine abuse: Patient is willing to quit smoking from now on. -Hypertension.
[2017-12-11 16:28] LABS: Glucose,Whole Blood 198 mg/dL (75-99)
[2017-12-11 20:59] LABS: Glucose,Whole Blood 226 mg/dL (75-99)
[2017-12-12] MEDS: HEPARIN SOD,PORK IN 0.45% NACL 25,000 UNIT in 0.45% NACL 1 500ML.BAG IV SCH ×2 (05:39→19:22)
[2017-12-12 06:07] LABS: Glucose,Whole Blood 180 mg/dL (75-99)
[2017-12-12 06:12] LABS: Basophils # (A) 0.1 k/uL (0-0.2); Basophils % (A) 1 %; Eosinophils # (A) 0.4 k/uL (0-0.7); Eosinophils % (A) 4 %; HCT 38.9 % (39.0-53.0); Lymphocytes # (A) 2.1 k/uL (1.0-4.8); Lymphocytes % (A) 22 %; MCH 27.5 pg (25.0-35.0); MCHC 33.6 g/dL (31.0-37.0); MCV 81.9 fL (80.0-100.0); Mean Platelet Volume 6.8; Monocytes # (A) 0.8 k/uL (0-1.0); Monocytes % (A) 8 %; Neutrophils # (A) 5.8 k/uL (1.3-7.7); Neutrophils % (A) 62 %; Platelet Count 275 k/uL (150-450); RBC 4.74 m/uL (4.30-5.90); RDW 13.3 % (11.5-15.5); WBC 9.4 k/uL (3.8-10.6)
[2017-12-12] MEDS: INSULIN ASPART 100 UNIT/ML 1 ML 10 ML VIAL SQ SCH ×4 (06:15→22:39)
[2017-12-12] MEDS: IPRATROPIUM-ALBUTEROL 3 ML NEB INHALATION SCH ×4 (07:26→20:14)
--- NOTE | 2017-12-12 09:02 | P.PN ---
Subjective Progress Note Date: 12/12/17 Principal diagnosis: Severe triple-vessel coronary artery disease, non-STEMI, diabetes mellitus type 2, hypertension, hyperlipidemia, CVA greater than 5 years ago, current tobacco dependence, COPD with a preoperative FEV1 of 38 percent of the predicted value, suspicion for obstructive sleep apnea, and history of premature coronary artery disease with his brother having a 5 vessel bypass at age 57. The patient is sitting up to the bedside chair. He is in no acute distress. He denies any complaints of chest discomfort or shortness of breath. He remains on heparin drip per protocol. He is demonstrating good use on his incentive spirometry and achieving 2250 mL. He report is been up ambulating the hallway without difficulty. Walk test was completed yesterday 12/11/2017. Questions answered to the best of my ability, preoperative teaching reinforced. Objective - Vital Signs Vital signs: Vital Signs Temp 97.9 F 12/12/17 08:45 Pulse 97 12/12/17 08:45 Resp 16 12/12/17 08:45 BP 104/61 12/12/17 08:45 Pulse Ox 94 L 12/12/17 08:45 Intake & Output 12/11/17 12/12/17 12/12/17 18:59 06:59 18:59 Intake Total 928 488.242 Output Total 400 1875 Balance 528 -1386.758 Weight 82.5 kg Intake: IV 328 Heparin Sod,Pork in 0.45% 328 NaCl 25,000 unit In 0.45 % NaCl 1 500ml.bag @ 11 UNITS/KG/HR 19.95 mls/hr IV .Q24H [facility] Rx#: [id number] Intake, IV Titration 488.242 Amount Heparin Sod,Pork in 0.45% 488.242 NaCl 25,000 unit In 0.45 % NaCl 1 500ml.bag @ 11 UNITS/KG/HR 19.95 mls/hr IV .Q24H [facility] Rx#: [id number] Oral 600 Output: Urine 400 1875 Other: Voiding Method Toilet Toilet Urinal Urinal - Constitutional General appearance: Present: cooperative, no acute distress - Respiratory Details: Lung sounds are essentially clear throughout. Respirations are symmetrical and nonlabored. Oxygen saturation are 94% on room air. He is achieving 2250 mL on his incentive spirometry. - Cardiovascular Details: Regular rhythm and rate. S1 and S2 present, negative for S3, gallop or murmur. Remote telemetry showing normal sinus rhythm heart rate 72. No edema present. Knee-high sequential compression devices in place to his bilateral lower extremities. - Gastrointestinal Gastrointestinal Comment(s): Abdomen is soft, nontender and nondistended. Active bowel sounds to all 4 abdominal quadrants. Passing flatus. Tolerating oral intake. No guarding or rigidity. - Genitourinary Genitourinary Comment(s): Voiding clear yellow urine. 1575 mL output in the last 8 hours. - Integumentary Integumentary Comment(s): Skin is warm and dry. No clubbing or cyanosis present. No rash or abnormal pigmentation present. - Neurologic Neurologic Comment(s): No focal deficits. Neurologic: Present: CNII-XII intact - Musculoskeletal Musculoskeletal: Present: gait normal, strength equal bilaterally - Psychiatric Psychiatric: Present: A&O x's 3, appropriate affect, intact judgment & insight - Allied health notes Allied health notes reviewed: nursing - Labs CBC & Chem 7: 12/12/17 05:44 12/11/17 05:37 Labs: Abnormal Lab Results - Last 24 Hours (Table) 12/11/17 12/11/17 12/11/17 Range/Units 11:38 16:26 20:57 Hct (39.0-53.0) % APTT (22.0-30.0) sec POC Glucose (mg/dL) 190 H 198 H 226 H (75-99) mg/dL Crossmatch 12/12/17 12/12/17 12/12/17 Range/Units 05:44 05:44 05:44 Hct 38.9 L (39.0-53.0) % APTT 47.8 H (22.0-30.0) sec POC Glucose (mg/dL) (75-99) mg/dL Crossmatch See Detail 12/12/17 Range/Units 06:04 Hct (39.0-53.0) % APTT (22.0-30.0) sec POC Glucose (mg/dL) 180 H (75-99) mg/dL Crossmatch Microbiology - Last 24 Hours (Table) 12/09/17 18:12 Nasal Screen MRSA/MSSA - Final Nasal Swab 12/10/17 00:30 Urine Culture - Final Urine,Clean Catch Assessment and Plan (1) Acute coronary syndrome Current Visit: Yes Status: Acute Code(s): I24.9 - ACUTE ISCHEMIC HEART DISEASE, UNSPECIFIED SNOMED Code(s): 256375518 (2) Non-STEMI (non-ST elevated myocardial infarction) Current Visit: Yes Status: Acute Code(s): I21.4 - NON-ST ELEVATION (NSTEMI) MYOCARDIAL INFARCTION SNOMED Code(s): 913501842 (3) Diabetes mellitus Current Visit: Yes Status: Chronic Code(s): E11.9 - TYPE 2 DIABETES MELLITUS WITHOUT COMPLICATIONS SNOMED Code(s): 47821499 (4) Family history of premature coronary artery disease Current Visit: Yes Status: Chronic Code(s): Z82.49 - FAMILY HX OF ISCHEM HEART DIS AND OTH DIS OF THE CIRC SYS SNOMED Code(s): 691368208 (5) Hyperlipidemia Current Visit: Yes Status: Chronic Code(s): E78.5 - HYPERLIPIDEMIA, UNSPECIFIED SNOMED Code(s): 11126371 (6) Hypertension Current Visit: Yes Status: Chronic Code(s): I10 - ESSENTIAL (PRIMARY) HYPERTENSION SNOMED Code(s): 41825867 (7) Tobacco dependence Current Visit: Yes Status: Chronic Code(s): F17.200 - NICOTINE DEPENDENCE, UNSPECIFIED, UNCOMPLICATED SNOMED Code(s): 03425947 (8) History of stroke Current Visit: No Status: Resolved Code(s): Z86.73 - PRSNL HX OF TIA (TIA), AND CEREB INFRC W/O RESID DEFICITS SNOMED Code(s): 124065486 Plan: 1. Preoperative teaching reviewed and reinforced with the patient and his . 2. Importance of smoking cessation was reinforced with the patient. 3. STS risk score was calculated and discussed with the patient by Dr. Roth on 12/10/2017. 4. Continue aspirin, statin, beta suzie and heparin drip per protocol. 5. The patient is scheduled for myocardial revascularization surgery with KEBEDE , left radial artery endoscopic harvesting, EVH, intraoperative JARED and epi- aortic scanning for 12/13/2017 to be performed by Dr. Samantha Roth. 6. Encourage use of his incentive spirometry every hour while awake. 7. Medical management/diabetes management per primary care service. 8. Pulmonary management recommendations per Dr. Ly. 9. Nothing by mouth after midnight on 12/13/2017. 10. Discontinue his heparin drip 2 hours before his myocardial revascularization surgery. 11. More recommendations to follow based on patient's medical course. Time with Patient: Greater than 30
[2017-12-12] MEDS: LOSARTAN 25 MG TAB PO SCH (09:07)
[2017-12-12] MEDS: ATORVASTATIN 80 MG TAB PO SCH (09:07)
[2017-12-12] MEDS: MUPIROCIN 2% OINT 22 GM TUBE NASAL SCH ×2 (09:07→20:34)
[2017-12-12] MEDS: METOPROLOL SUCCINATE (ER) 25 MG TAB.ER.24H PO SCH ×2 (09:07→20:34)
[2017-12-12] MEDS: ASPIRIN 81 MG PO SCH (09:07)
[2017-12-12 09:41] LABS: ALT 38 U/L (21-72); AST 52 U/L (17-59); Albumin 3.6 g/dL (3.5-5.0); Alkaline Phosphatase 64 U/L (38-126); Anion Gap 8 mmol/L; Blood Urea Nitrogen 11 mg/dL (9-20); Calcium 8.9 mg/dL (8.4-10.2); Carbon Dioxide 22 mmol/L (22-30); Chloride 107 mmol/L (98-107); Glucose 163 mg/dL (74-99); Potassium 4.2 mmol/L (3.5-5.1); Sodium 137 mmol/L (137-145); Total Bilirubin 0.7 mg/dL (0.2-1.3)
--- NOTE | 2017-12-12 11:47 | P.PN ---
Subjective Progress Note Date: 12/12/17 Principal diagnosis: Acute coronary syndrome This is a 57-year-old white male, [id number] smoker, known history of mild COPD, type 2 diabetes, patient presented to the hospital with acute chest pain and discomfort, felt to have ST elevation myocardial infarction. Cardiac catheterization showed severe triple-vessel disease with occluded RCA chronically fills by collaterals from the left coronary system. Critical disease noted in the left circumflex and critical disease noted in the LAD. Considering the findings, patient was referred to cardiothoracic surgery, and he is being considered for myocardial revascularization. Patient denies chronic shortness of breath, denies any cough and wheezing. Has been a smoker over the years, and he was given 1 time by his primary care physician albuterol , but he rarely ever takes albuterol. He is relatively active physically, no dyspnea on exertion. No fever no chills no hemoptysis no chest pain until the time of his presentation. Patient denies any GI symptoms no nausea no vomiting up down pain no melena no hematemesis. No dysuria and no frequency no urgency. Denies any neurological symptoms. And no musculoskeletal symptoms. The patient is seen again today 12/10/2017 in follow-up on the selective care unit. He is currently awake and alert in no acute distress. He is resting quite comfortably in bed. He denies any chest discomfort, palpitations lightheadedness or dizziness. No shortness of breath, cough or congestion. He was found to have significant chronic obstructive pulmonary disease with FEV1 value 38% of predicted. He had been on Spiriva in the outpatient setting. He had a Ventolin HFA which he rarely used. Maintaining good O2 saturations in the low 90s on room air. He's been afebrile. He remains on a heparin drip. Patient was reevaluated today on 12/11/2017, he remains on selective, monitor bed , asymptomatic, denies any chest pain no cough no wheezing no nausea no vomiting no abdominal pain. Patient is on bronchodilators, his FEV1 baseline is 38%, and he is considered relatively high operative risk, surgery is planned for Wednesday. Clinically the patient has no active pulmonary symptoms whatsoever. Reevaluated today on 12/12/2017, doing well, asymptomatic, on incentive spirometry and on bronchodilators, denies any cough no wheezing no shortness of breath no chest pain. Ambulating in the hallway fine. Scheduled to undergo myocardial revascularization in a.m. All labs were reviewed including his CBC and basic metabolic profile. PTT is 47.8. Objective - Vital Signs Vital signs: Vital Signs Temp 97.9 F 12/12/17 08:45 Pulse 77 12/12/17 11:20 Resp 16 12/12/17 11:20 BP 101/64 12/12/17 11:20 Pulse Ox 94 L 12/12/17 11:20 Intake & Output 12/11/17 12/12/17 12/12/17 18:59 06:59 18:59 Intake Total 928 488.242 360 Output Total 400 1875 Balance 528 -1386.758 360 Weight 82.5 kg Intake: IV 328 Heparin Sod,Pork in 0.45% 328 NaCl 25,000 unit In 0.45 % NaCl 1 500ml.bag @ 11 UNITS/KG/HR 19.95 mls/hr IV .Q24H [facility] Rx#: [id number] Intake, IV Titration 488.242 Amount Heparin Sod,Pork in 0.45% 488.242 NaCl 25,000 unit In 0.45 % NaCl 1 500ml.bag @ 11 UNITS/KG/HR 19.95 mls/hr IV .Q24H [facility] Rx#: [id number] Oral 600 360 Output: Urine 400 1875 Other: Voiding Method Toilet Toilet Toilet Urinal Urinal Urinal - Exam Physical Exam: Revealed a 57-year-old white male in no distress. Head:, Atraumatic, normocephalic. HEENT:[Neck is supple.] [No neck masses.] [No thyromegaly.] [No JVD.] Chest: [Clear throughout, no crackles, no rhonchi, no wheezes.] Cardiac Exam: [Normal S1 and S2, no S3 gallop, no murmur.] Abdomen: [Soft, nontender, no megaly, no rebound, no guarding, normal bowel sounds.] Extremities: [No clubbing, no edema, no cyanosis.] Neurological Exam: [No focal neurologic deficit. Psychiatric: Normal mood affect and mental status examination. Pharynx: No lymphadenopathy.] - Labs CBC & Chem 7: 12/12/17 05:44 12/12/17 05:44 Labs: Abnormal Lab Results - Last 24 Hours (Table) 12/11/17 12/11/17 12/12/17 Range/Units 16:26 20:57 05:44 Hct (39.0-53.0) % APTT (22.0-30.0) sec Glucose (74-99) mg/dL POC Glucose (mg/dL) 198 H 226 H (75-99) mg/dL Total Protein (6.3-8.2) g/dL Crossmatch See Detail 12/12/17 12/12/17 12/12/17 Range/Units 05:44 05:44 05:44 Hct 38.9 L (39.0-53.0) % APTT 47.8 H (22.0-30.0) sec Glucose 163 H (74-99) mg/dL POC Glucose (mg/dL) (75-99) mg/dL Total Protein 6.0 L (6.3-8.2) g/dL Crossmatch 12/12/17 Range/Units 06:04 Hct (39.0-53.0) % APTT (22.0-30.0) sec Glucose (74-99) mg/dL POC Glucose (mg/dL) 180 H (75-99) mg/dL Total Protein (6.3-8.2) g/dL Crossmatch Microbiology - Last 24 Hours (Table) 12/09/17 18:12 Nasal Screen MRSA/MSSA - Final Nasal Swab 12/10/17 00:30 Urine Culture - Final Urine,Clean Catch Assessment and Plan Assessment: Impression: 1 acute coronary syndrome 2 2 vessel coronary artery disease, as noted on his cardiac catheterization. 3 suspect mild COPD, however the patient is relatively asymptomatic. 4 tobacco dependence syndrome and the patient was counseled regarding smoking cessation. Recommendation: Continue incentive spirometry, ambulation, bronchodilators, clear for surgery as scheduled tomorrow. Again the patient is considered moderate to high operative risk. Time with Patient: Less than 30
[2017-12-12 11:52] LABS: Glucose,Whole Blood 177 mg/dL (75-99)
--- NOTE | 2017-12-12 12:57 | P.PN ---
Subjective Patient is admitted for rest elevation microinfarction found to have severe two- vessel disease in RCA and left circumflex with the significant collaterals to the left coronary system. Patient will undergo coronary artery bypass grafting patient's ejection fraction is that is that 5% patient is not in heart failure exacerbation. 12/11/2017 No overnight events 12/12/2017 No chest pain Constitutional: Denied any fatigue denied any fever. Cardio vascular: denied any chest pain, palpitations Gastrointestinal denied any nausea vomiting Pulmonary: Denied any shortness of breath cough Neurologic denied any new focal deficits Objective - Vital Signs Vital signs: Vital Signs Temp 97.9 F 12/12/17 08:45 Pulse 77 12/12/17 11:20 Resp 16 12/12/17 11:20 BP 101/64 12/12/17 11:20 Pulse Ox 94 L 12/12/17 11:20 Intake & Output 12/11/17 12/12/17 12/12/17 18:59 06:59 18:59 Intake Total 928 488.242 360 Output Total 400 1875 Balance 528 -1386.758 360 Weight 82.5 kg Intake: IV 328 Heparin Sod,Pork in 0.45% 328 NaCl 25,000 unit In 0.45 % NaCl 1 500ml.bag @ 11 UNITS/KG/HR 19.95 mls/hr IV .Q24H [facility] Rx#: [id number] Intake, IV Titration 488.242 Amount Heparin Sod,Pork in 0.45% 488.242 NaCl 25,000 unit In 0.45 % NaCl 1 500ml.bag @ 11 UNITS/KG/HR 19.95 mls/hr IV .Q24H [facility] Rx#: [id number] Oral 600 360 Output: Urine 400 1875 Other: Voiding Method Toilet Toilet Toilet Urinal Urinal Urinal - Exam PHYSICAL EXAMINATION: GENERAL: The patient is alert and oriented x3, not in any acute distress. Well developed, well nourished. HEENT: Pupils are round and equally reacting to light. EOMI. No scleral icterus. No conjunctival pallor. Normocephalic, atraumatic. No pharyngeal erythema. No thyromegaly. CARDIOVASCULAR: S1 and S2 present. No murmurs, rubs, or gallops. PULMONARY: Chest is clear to auscultation, no wheezing or crackles. ABDOMEN: Soft, nontender, nondistended, normoactive bowel sounds. No palpable organomegaly. MUSCULOSKELETAL: No joint swelling or deformity. EXTREMITIES: No cyanosis, clubbing, or pedal edema. NEUROLOGICAL: Gross neurological examination did not reveal any focal deficits. SKIN: No rashes. - Labs CBC & Chem 7: 12/12/17 05:44 12/12/17 05:44 Labs: Abnormal Lab Results - Last 24 Hours (Table) 12/11/17 12/11/17 12/12/17 Range/Units 16:26 20:57 05:44 Hct (39.0-53.0) % APTT (22.0-30.0) sec Glucose (74-99) mg/dL POC Glucose (mg/dL) 198 H 226 H (75-99) mg/dL Total Protein (6.3-8.2) g/dL Crossmatch See Detail 12/12/17 12/12/17 12/12/17 Range/Units 05:44 05:44 05:44 Hct 38.9 L (39.0-53.0) % APTT 47.8 H (22.0-30.0) sec Glucose 163 H (74-99) mg/dL POC Glucose (mg/dL) (75-99) mg/dL Total Protein 6.0 L (6.3-8.2) g/dL Crossmatch 12/12/17 12/12/17 Range/Units 06:04 11:41 Hct (39.0-53.0) % APTT (22.0-30.0) sec Glucose (74-99) mg/dL POC Glucose (mg/dL) 180 H 177 H (75-99) mg/dL Total Protein (6.3-8.2) g/dL Crossmatch Microbiology - Last 24 Hours (Table) 12/09/17 18:12 Nasal Screen MRSA/MSSA - Final Nasal Swab 12/10/17 00:30 Urine Culture - Final Urine,Clean Catch Assessment and Plan Plan: ST elevation myocardial infarction with three-vessel disease patient will need coronary artery bypass grafting was evaluated by cardiothoracic surgery patient the is undergoing workup for CABG. Patient is presently on dual antiplatelet therapy statin. Patient had depressed ejection fraction which is acute from his microinfarction 30-35%. -Acute systolic dysfunction without any pulmonary edema or volume overload. -Type 2 diabetes mellitus noncompliant with diet at home patient will be on sliding scale insulin for now -COPD without any acute exacerbation -Nicotine abuse: Patient is willing to quit smoking from now on. -Hypertension.
--- NOTE | 2017-12-12 13:49 | PN ---
PROGRESS NOTE Mr. Li is a 57-year-old male who underwent cardiac catheterization was found to have severe triple-vessel coronary disease. He is scheduled to undergo coronary bypass grafting tomorrow. He is feeling well this morning. Denying any chest pain. His breathing has been stable. He denies any dizziness or palpitation. He continues to be on aspirin once a day, IV heparin, Lipitor 80 mg daily, losartan 12.5 mg daily, metoprolol succinate 25 mg twice a day. PHYSICAL EXAMINATION: Blood pressure 137/60 with a heart in 70s. LUNGS: Clear. HEART: Regular rate and rhythm. S1, S2. No S3. No rub. ABDOMEN: Soft, nontender. EXTREMITIES: No edema. LAB DATA: Revealed BUN and creatinine 11 and 0.75, potassium 4.2. IMPRESSION: 1. Triple-vessel coronary artery disease scheduled to undergo cardiac bypass grafting. 2. Hyperlipidemia. 3. Cardiomyopathy. RECOMMENDATION: The patient will undergo the procedure tomorrow and his post procedure and medical regimen will be adjusted accordingly. MMODL / IJN: [id number] /
[2017-12-12 16:22] LABS: Glucose,Whole Blood 144 mg/dL (75-99)
[2017-12-12 21:09] LABS: Glucose,Whole Blood 175 mg/dL (75-99)
[2017-12-13] MEDS ORDERED: ceFAZolin 2,000 MG in SODIUM CHLORIDE 0.9% 30 ML IVPB ONE (05:00)
[2017-12-13] MEDS ORDERED: MANNITOL 25% 12.5 GM/50 ML VIAL IV ONE ×2 (05:00)
[2017-12-13] MEDS ORDERED: METOPROLOL TARTRATE 12.5 MG TAB PO ONE (05:00)
[2017-12-13] MEDS ORDERED: MAGNESIUM SULFATE SYG 4.06 MEQ/ML SYRINGE IV ONE (05:00)
[2017-12-13] MEDS ORDERED: PROTAMINE SULFATE 10 MG/ML 25 ML VIAL IV ONE ×2 (05:00→07:57)
[2017-12-13] MEDS ORDERED: NITROGLYCERIN-D5W PMX 25 MG/250 ML BTL IV ONE (05:00)
[2017-12-13] MEDS ORDERED: TRANEXAMIC ACID 2,000 MG in SODIUM CHLORIDE 0.9% 180 ML IV ONE (05:00)
[2017-12-13] MEDS ORDERED: CHLORHEXIDINE GLUCONATE 15 ML CUP MUCOUS MEM ONE (05:00)
[2017-12-13] MEDS ORDERED: PHENYLEPHRINE 40 MG in SODIUM CHLORIDE 0.9% 250 ML IV ONE (05:00)
[2017-12-13] MEDS ORDERED: NITROGLYCERIN-D5W PMX 50 MG in DEXTROSE/WATER 1 250ML.BAG IV ONE (05:00)
[2017-12-13] MEDS ORDERED: ceFAZolin 1,000 MG in SODIUM CHLORIDE 0.9% IRRIGATIO 1,000 ML IRRIGATION ONE (05:00)
[2017-12-13] MEDS ORDERED: NOREPINEPHRIN 4 MG-0.9% NS PMX 4 MG/250 ML ML IV SCH (05:00)
[2017-12-13] MEDS ORDERED: ALBUMIN HUMAN 5% 500 ML in EMPTY BAG 1 BAG IVPB ONE ×6 (05:00)
[2017-12-13] MEDS ORDERED: ceFAZolin 2 GM in SODIUM CHLORIDE 0.9% 30 ML IVPB ONE (05:00)
[2017-12-13] MEDS ORDERED: INSULIN REGULAR 100 UNIT in SODIUM CHLORIDE 0.9% 100 ML IV ONE (05:00)
[2017-12-13] MEDS ORDERED: DEXTROSE 5% IN WATER 1,000 ML with POTASSIUM CHLORIDE 25 MEQ, SODIUM CHLORIDE 2.5MEQ/ML... IV SCH ×6 (05:00)
[2017-12-13] MEDS ORDERED: PROTAMINE SULFATE 250 MG in EMPTY BAG 1 BAG IV ONE (05:00)
[2017-12-13] MEDS ORDERED: PROPOFOL 1,000 MG in EMPTY BAG 1 BAG IV ONE (05:00)
[2017-12-13] MEDS ORDERED: PHENYLEPHRINE-0.9% NACL SYG 1 MG/10 ML SYRINGE IV ONE ×4 (05:00)
[2017-12-13] MEDS ORDERED: PAPAVERINE 360 MG in SODIUM CHLORIDE 0.9% 90 ML IV ONE (05:00)
[2017-12-13] MEDS ORDERED: DEXTROSE 5% IN WATER 1,000 ML with POTASSIUM CHLORIDE 110 MEQ, MAGNESIUM SULFATE 16 MEQ... IV SCH ×5 (05:00)
[2017-12-13] MEDS ORDERED: SODIUM BICARB 8.4% 50 ML SYR (1 MEQ/ML) IV ONE (05:00)
[2017-12-13] MEDS ORDERED: ALBUMIN HUMAN 25% 50 ML in EMPTY BAG 1 BAG IVPB ONE (05:00)
[2017-12-13] MEDS ORDERED: ATORVASTATIN 10 MG TAB PO ONE (05:00)
[2017-12-13] MEDS ORDERED: ASPIRIN 325 MG TAB PO ONE (05:00)
[2017-12-13] MEDS ORDERED: CLEVIDIPINE BUTYRATE 25 MG in EMPTY BAG 1 BAG IV ONE (05:00)
[2017-12-13] MEDS ORDERED: HEPARIN SODIUM,PORCINE 5,000 UNIT in SODIUM CHLORIDE 0.9% 500 ML IV ONE (05:00)
[2017-12-13] MEDS ORDERED: HEPARIN SODIUM 1,000 UN/ML (10ML VL) IV ONE (05:00)
[2017-12-13] MEDS ORDERED: CALCIUM CHLORIDE 100 MG/ML 10 ML SYRINGE IVP ONE (05:00)
[2017-12-13 05:15] LABS: Basophils # (A) 0.1 k/uL (0-0.2); Basophils % (A) 1 %; Eosinophils # (A) 0.3 k/uL (0-0.7); Eosinophils % (A) 4 %; HCT 37.8 % (39.0-53.0); HGB 13.2 gm/dL (13.0-17.5); Lymphocytes # (A) 1.7 k/uL (1.0-4.8); Lymphocytes % (A) 20 %; MCH 28.3 pg (25.0-35.0); MCV 80.9 fL (80.0-100.0); Mean Platelet Volume 6.6; Monocytes # (A) 0.5 k/uL (0-1.0); Monocytes % (A) 7 %; Neutrophils # (A) 5.5 k/uL (1.3-7.7); Neutrophils % (A) 67 %; Platelet Count 291 k/uL (150-450); RBC 4.68 m/uL (4.30-5.90); RDW 13.3 % (11.5-15.5); WBC 8.2 k/uL (3.8-10.6)
[2017-12-13] MEDS ORDERED: SODIUM CHLORIDE 0.9% 100 ML BAG ONE (07:57)
[2017-12-13] MEDS ORDERED: WATER FOR INJECTION, STERILE 10 ML VIAL IV ONE (07:57)
[2017-12-13] MEDS ORDERED: MIDAZOLAM 2 MG/2 ML VIAL ONE (07:57)
[2017-12-13] MEDS ORDERED: LIDOCAINE 2% SYG (PF) 100 MG/5 ML ONE (07:57)
[2017-12-13] MEDS ORDERED: PROPOFOL 10 MG/ML 20 ML VIAL IV ONE (07:57)
[2017-12-13] MEDS ORDERED: CALCIUM CHLORIDE 100 MG/ML 10 ML SYRINGE ONE (07:57)
[2017-12-13] MEDS ORDERED: TRANEXAMIC ACID 1,000 MG/10 ML VIAL ONE (07:57)
[2017-12-13] MEDS ORDERED: fentaNYL (PF) 50 MCG/ML 2 ML AMP ONE (07:57)
[2017-12-13] MEDS ORDERED: MAGNESIUM SULFATE 4 MEQ/ML 2 ML VIAL ONE (07:57)
[2017-12-13] MEDS ORDERED: HEPARIN SODIUM,PORCINE 5,000 UNIT/ML 1 ML VIAL ONE (07:57)
[2017-12-13] MEDS ORDERED: PHENYLEPHRINE-0.9% NACL SYG 1 MG/10 ML SYRINGE ONE (07:57)
[2017-12-13] MEDS ORDERED: VECURONIUM 10 MG VIAL IV ONE (07:57)
[2017-12-13] MEDS ORDERED: MILRINONE 1 MG/ML 20 ML VIAL IV ONE (07:57)
[2017-12-13] MEDS ORDERED: fentaNYL (PF) 50 MCG/ML 50 ML VIAL ONE (07:57)
[2017-12-13] MEDS ORDERED: ELECTROLYTE-R (PH 7.4) 1,000 ML IV.SOLN IV ONE (07:57)
[2017-12-13] MEDS: IPRATROPIUM-ALBUTEROL 3 ML NEB INHALATION SCH ×5 (07:59→22:58)
[2017-12-13 08:47] LABS: ABG Base Excess -2.3 mmol/L; ABG HCO3 23 mmol/L (21-25); ABG PCO2 43 mmHg (35-45); ABG PH 7.35 (7.35-7.45); ABG PO2 271 mmHg (83-108); ABG Potassium Whole Blood 4.1 mmol/L (3.4-4.5); ABG Sodium Whole Blood 138 mmol/L (135-146); ABG TCO2 25 mmol/L (19-24)
[2017-12-13 10:42] LABS: ABG Base Excess -3.7 mmol/L; ABG HCO3 23 mmol/L (21-25); ABG Oxygen Saturation 99.5 % (94-97); ABG PCO2 47 mmHg (35-45); ABG PO2 187 mmHg (83-108); ABG Potassium Whole Blood 4.9 mmol/L (3.4-4.5); ABG Sodium Whole Blood 137 mmol/L (135-146); ABG TCO2 24 mmol/L (19-24)
[2017-12-13 11:32] LABS: ABG Base Excess 0.5 mmol/L; ABG HCO3 26 mmol/L (21-25); ABG Oxygen Saturation 99.8 % (94-97); ABG PCO2 45 mmHg (35-45); ABG PH 7.37 (7.35-7.45); ABG PO2 228 mmHg (83-108); ABG Potassium Whole Blood 4.9 mmol/L (3.4-4.5); ABG Sodium Whole Blood 134 mmol/L (135-146); ABG TCO2 27 mmol/L (19-24)
[2017-12-13 12:10] LABS: ABG Base Excess -1.9 mmol/L; ABG HCO3 24 mmol/L (21-25); ABG Oxygen Saturation 99.8 % (94-97); ABG PCO2 45 mmHg (35-45); ABG PH 7.33 (7.35-7.45); ABG PO2 216 mmHg (83-108); ABG Sodium Whole Blood 132 mmol/L (135-146); ABG TCO2 25 mmol/L (19-24)
[2017-12-13 12:32] LABS: ABG HCO3 24 mmol/L (21-25); ABG Oxygen Saturation 99.2 % (94-97); ABG PCO2 43 mmHg (35-45); ABG PH 7.35 (7.35-7.45); ABG PO2 144 mmHg (83-108); ABG Sodium Whole Blood 132 mmol/L (135-146); ABG TCO2 25 mmol/L (19-24)
[2017-12-13] MEDS ORDERED: IPRATROPIUM-ALBUTEROL 3 ML NEB INHALATION PRN (14:28)
[2017-12-13] MEDS ORDERED: CALCIUM CHLORIDE 1,000 MG in SODIUM CHLORIDE 0.9% 100 ML IV PRN (14:28)
[2017-12-13] MEDS ORDERED: Phosphorus Replacement Protoco 1 EACH MISC MISCELLANE PRN (14:28)
[2017-12-13] MEDS ORDERED: Magnesium Replacement Protocol 1 EACH MISC MISCELLANE PRN (14:28)
[2017-12-13] MEDS ORDERED: Potassium Replacement Protocol 1 EACH MISC MISCELLANE PRN (14:28)
[2017-12-13] MEDS ORDERED: ONDANSETRON 4 MG/2 ML VIAL IVP PRN (14:28)
[2017-12-13] MEDS ORDERED: BENZOCAINE/MENTHOL LOZENG 1 EACH LOZENGE MUCOUS MEM PRN (14:28)
[2017-12-13] MEDS ORDERED: METOCLOPRAMIDE 5 MG/ML 2 ML VIAL IVP PRN (14:28)
[2017-12-13] MEDS ORDERED: DEXTROSE 5% IN WATER 100 ML with AMIODARONE 150 MG IV PRN (14:28)
[2017-12-13] MEDS ORDERED: PROPOFOL 1,000 MG in EMPTY BAG 1 BAG IV SCH (14:30)
[2017-12-13] MEDS ORDERED: NITROGLYCERIN-D5W PMX 50 MG in DEXTROSE/WATER 1 250ML.BAG IV SCH (14:30)
[2017-12-13] MEDS ORDERED: INSULIN REGULAR 100 UNIT in SODIUM CHLORIDE 0.9% 100 ML IV SCH (14:30)
[2017-12-13] MEDS ORDERED: ALBUMIN HUMAN 5% 250 ML IVPB ONE (14:32)
[2017-12-13 14:57] LABS: ABG Potassium Whole Blood 6.8 mmol/L (3.4-4.5)
[2017-12-13 14:58] LABS: ABG Potassium Whole Blood 6.7 mmol/L (3.4-4.5)
[2017-12-13 15:11] LABS: Basophils % (A) 0 %; Eosinophils # (A) 0.1 k/uL (0-0.7); Eosinophils % (A) 1 %; HCT 32.2 % (39.0-53.0); HGB 11.2 gm/dL (13.0-17.5); Lymphocytes # (A) 1.5 k/uL (1.0-4.8); Lymphocytes % (A) 15 %; MCH 28.5 pg (25.0-35.0); MCHC 34.7 g/dL (31.0-37.0); MCV 82.1 fL (80.0-100.0); Monocytes # (A) 0.6 k/uL (0-1.0); Monocytes % (A) 6 %; Neutrophils # (A) 7.3 k/uL (1.3-7.7); Neutrophils % (A) 76 %; Platelet Count 188 k/uL (150-450); RBC 3.91 m/uL (4.30-5.90); RDW 13.3 % (11.5-15.5); WBC 9.6 k/uL (3.8-10.6)
[2017-12-13 15:14] LABS: Ionized Calcium 5.2 mg/dL (4.5-5.3)
[2017-12-13 15:18] LABS: INR 1.1 (<1.2); Partial Thromboplastin Time 23.2 sec (22.0-30.0); Prothrombin Time 10.7 sec (9.0-12.0)
--- NOTE | 2017-12-13 15:19 | XR ---
EXAMINATION TYPE: XR chest 1V portable DATE OF EXAM: 12/13/2017 COMPARISON: 12/09/2017 INDICATION: Postop cardiac surgery TECHNIQUE: Single frontal view of the chest is obtained. FINDINGS: The heart size is normal. The pulmonary vasculature is normal. Some mild infiltrate is in the perihilar regions. Left-sided chest tube is present. No pneumothorax is present. An endotracheal tube is present with ti p above the pedrito. Nasogastric tube is not present. There is a mediastinal tube present. [place] c atheter with tip in the main pulmonary artery region is present. IMPRESSION: 1. No acute pulmonary process. 2. Multiple lines and catheters discussed above
[2017-12-13 15:20] LABS: ABG Base Excess 0.8 mmol/L; ABG HCO3 28 mmol/L (21-25); ABG Oxygen Saturation 99.7 % (94-97); ABG PCO2 62 mmHg (35-45); ABG PH 7.26 (7.35-7.45); ABG PO2 280 mmHg (83-108); ABG TCO2 30 mmol/L (19-24)
[2017-12-13 15:22] LABS: Glucose,Whole Blood 101 mg/dL (75-99)
[2017-12-13 15:25] LABS: ALT 39 U/L (21-72); AST 56 U/L (17-59); Albumin 3.1 g/dL (3.5-5.0); Alkaline Phosphatase 40 U/L (38-126); Anion Gap 4 mmol/L; Blood Urea Nitrogen 10 mg/dL (9-20); Calcium 8.7 mg/dL (8.4-10.2); Carbon Dioxide 29 mmol/L (22-30); Chloride 108 mmol/L (98-107); Glucose 92 mg/dL (74-99); Magnesium 2.6 mg/dL (1.6-2.3); Sodium 141 mmol/L (137-145); Total Bilirubin 0.5 mg/dL (0.2-1.3); Total Protein 5.3 g/dL (6.3-8.2)
--- NOTE | 2017-12-13 15:26 | OP ---
OPERATIVE REPORT DATE OF THE SURGERY: 12/13/2017. SURGEON: Dr. Roth. CONCRETE PAVER: 1. Tom Deutsch, nurse practitioner. 2. ORESTES Dacosta. PREOPERATIVE DIAGNOSES: Triple-vessel carotid disease, status post acute anterior wall myocardial infarction, moderate left ventricular dysfunction, hypertension, diabetes, hyperlipidemia, tobacco abuse, noncompliance with medical therapy. POSTOPERATIVE DIAGNOSES: Triple-vessel carotid disease, status post acute anterior wall myocardial infarction, moderate left ventricular dysfunction, hypertension, diabetes, hyperlipidemia, tobacco abuse, noncompliance with medical therapy with diffuse coronary artery disease. PROCEDURE: 1. Multiple arterial triple coronary artery bypass grafting using the left internal mammary artery to the left anterior descending artery, the left radial artery from the aorta to the obtuse marginal artery, reverse saphenous vein graft from the aorta to the takeoff of the posterior descending artery. 2. Endoscopic harvesting of the left radial artery. 3. Endoscopic harvesting of the left greater saphenous vein from groin to knee level. 4. Intraoperative transesophageal echocardiogram and epiaortic scanning. 5. Intraoperative graft flow measurements using the [employer] system. INDICATION FOR SURGERY: Patient is a 57-year-old gentleman with the above comorbidities who has not been compliant with medical therapy, who presented with chest pain and persistent ST elevation anteriorly with on cardiac catheterization, evidence of totally occluded right coronary artery and severe disease in the LAD and circumflex system. His 2D echo showed mid to distal anteroapical akinesia to dyskinesia with no significant valvular abnormality and ejection fraction estimated around 30%. The patient was treated for around 4 days and we are proceeding today with coronary artery bypass grafting at increased risk. The SDS risk was discussed with him. He understood and agreed to proceed. DESCRIPTION OF THE PROCEDURE: The patient in supine position. Right internal jugular Manhattan-Lilia catheter and a right radial arterial line were placed. Subsequently, he was brought to the operating room where general endotracheal anesthesia was induced uneventfully. His PA pressure was normal and his cardiac index was 2.7 before going to sleep. He received 2 g of cefazolin intravenously. A Vernon catheter was inserted. The chest, abdomen, both lower extremity and left upper extremity were prepped and draped using ChloraPrep. Ioban was used to cover the skin. Transesophageal echocardiogram confirmed the preoperative finding of moderate left ventricular dysfunction with mid to distal anteroapical akinesia and no significant valvular abnormalities. A midline sternotomy was performed and the bone was mildly osteopenic. No bone wax was used. The left hemisternum was elevated. The left internal mammary artery was harvested in a somewhat skeletonized fashion. The left pleura was intentionally opened in this process and was drained with a 28-Tongan chest tube. The right pleura remained grossly intact. In the same setting, the left radial artery was harvested endoscopically from wrist to elbow level after performing a clamping trial at the level of the wrist that showed preserved pulsatile signal at the left index O2 saturation probe. The forearm incisions were closed over a DOUGIE drain. Also in the same setting the left greater saphenous vein was harvested endoscopically after administration of 2500 units of heparin between groin and knee level. The leg incisions were closed over a drain. The vein was prepared and was around 4 mm in diameter of good quality. Mediastinal fat was transected between 2 ties and epiaortic scanning revealed concentric intimal thickening but no protruding atheroma in the ascending aorta. Pericardium was opened in an inverted T-fashion and a pericardial cradle was created. Findings included a subacute changes of anterior wall myocardial infarction and evidence of diffuse coronary artery disease. After systemic heparinization, placement of respective pledgeted pursestring aortic cannulation with a 21-Tongan soft flow cannula, venous cannulation via the right atrial appendage was performed. Antegrade as well as well as retrograde cardioplegia catheter were placed. The radial artery was prepared by incising the fascia below all along its volar aspect and clipping all the branches. It was around 2.5 mm in diameter, mildly thickened. The mammary artery had been clipped and transected distally after administration 5000 units of heparin earlier in the case. It was prepared, was around 1.75 mm in diameter and thin-walled with excellent flow in it. Cardioplegia bypass was initiated and we looked at the target. The LAD was diffusely diseased and picked a soft spot in its mid aspect. The obtuse marginal artery and was found by the appendage before it bifurcated and went intramyocardial. It had an eccentric plaque at that level that was of good diameter. The right coronary artery was exposed at its bifurcation and we exposed the proximal aspect of the PDA. Aorta was clamped and during 87 minutes of aortic clamping myocardial protection was achieved with initial dose of antegrade cold blood cardioplegia followed by retrograde cardioplegia dose. All subsequent doses were given retrograde as well as through the constructed venous graft to the posterior descending artery, which was done initially. The 1st distal anastomosis was seen. A segment of reverse saphenous vein graft and the posterior descending artery takeoff. The arteriotomy extended into the main RCA at the pedrito and the anastomosis was completed using Prolene 7-0 in continuous fashion. The vein was connected to the retrograde cardioplegia delivery system side-arm and all maintenance doses were given retrograde as well as through the vein for optimal protection in view of totally occluded right coronary artery. The second distal anastomosis was between the left radial artery and the very proximal aspect of the obtuse marginal artery which was around 2 mm in diameter, just before it went into myocardial using Prolene 7-0 in a continuous fashion. The 3rd distal anastomosis was seen. The left internal mammary artery and the mid aspect of the left anterior descending artery, which was diffusely diseased, was around 1.75 mm in diameter using Prolene 7-0 in continuous fashion. The mammary pedicle was affixed to the epicardium with Prolene 7 0 sutures. Satisfied with the distal anastomosis, rewarming was started and we punched out 2 bottles of 5 mm each of the ascending aorta and 2 proximal anastomosis of the radial artery as well as the vein were completed using running Prolene. De-airing maneuvers were performed. The patient was given lidocaine and magnesium before unclamping the aorta. The vein was de-aired before establishing flow in it. After a period of reperfusion, we were able to wean off cardiac bypass. Initially, I loaded the patient with half load of Primacor expecting the need for some anatrophic support; however, with excellent hemodynamics were able to wean the Primacor. JARED showed improved left ventricle function. Test full dose protamine was given. Graft flow measurement was performed and that showed excellent graft parameters with flows above 70-80 mL/minute and all grafts and pulsatility index below 3. Two monopolar atrial pacing wires were affixed to the respective pressuring of the right atrium and 1 bipolar ventricular pace was driven via the inferior aspect of the right ventricle. One [id number] substernal chest tube was placed. The pericardial fat was approximated over the heart and the aorta and the graft. After ensuring adequate hemostasis and hemodynamic and after correct sponge, instrument, and needle count, the sternum was approximated using 5 [id number] pineal cable after interposing fibular between the sternal edges. Thorough irrigation with cefazolin followed. The rest of the closure proceeded in layers. Skin glue was applied. Patient did not receive any blood bank product but received 300 cc of Cell Saver blood. He was transferred to the ICU on low-dose nitroglycerin with excellent hemodynamics. Normal EKG. PA pressure of 25/13, a cardiac index of 5. MMODL / IJN: [id number] /
[2017-12-13] MEDS: CLEVIDIPINE BUTYRATE 25 MG in EMPTY BAG 1 BAG IV SCH ×2 (15:30→17:09)
[2017-12-13] MEDS: LACTATED RINGERS 1,000 ML IV SCH (15:45)
[2017-12-13] MEDS ORDERED: DEXMEDETOMIDINE/0.9% NACL(PMX) 400 MCG in EMPTY BAG 1 BAG IV SCH (16:00)
[2017-12-13] MEDS: ceFAZolin IN SWFI 2 GM/20 ML SYRINGE IVP SCH ×2 (16:07→23:43)
[2017-12-13] MEDS ORDERED: METOPROLOL TARTRATE 12.5 MG TAB PO STA (16:13)
[2017-12-13 16:20] LABS: Glucose,Whole Blood 98 mg/dL (75-99)
--- NOTE | 2017-12-13 16:23 | PN ---
PROGRESS NOTE Mr. Li is a 57-year-old male who underwent coronary bypass grafting today. He is intubated and sedated. He has received a KEBEDE to LAD, a radial artery and to the circumflex and a saphenous to the PDA. He is on no vasopressor. He is in sinus mechanism. Hemodynamically stable. PHYSICAL EXAMINATION: His blood pressure is 120/70 with a heart rate in the 70s. LUNGS: Clear anteriorly. HEART: Regular rate and rhythm S1, S2, plus rub. No gallop. ABDOMEN: Soft. No organomegaly. Hypoactive bowel sounds. Extremities: LAURA wrapping in place. IMPRESSION: 1. Status post coronary artery bypass grafting. 2. Ischemic cardiomyopathy. 3. Hyperlipidemia. 4. Diabetes mellitus. RECOMMENDATION: From the cardiac standpoint, we will continue routine postoperative care. I am hopeful that we can wean him and extubate him soon and resume his beta suzie as well as LAURA inhibitor in view of the cardiomyopathy. Depending on his progress, further recommendations will be made. MMENEDINAL / ADELINEN: [id number] /
[2017-12-13] MEDS ORDERED: DEXMEDETOMIDINE 400 MCG in SODIUM CHLORIDE 0.9% 100 ML IV SCH (16:30)
[2017-12-13] MEDS: MORPHINE SULFATE 2 MG/ML SYRINGE IVP PRN ×2 (17:05→23:18)
[2017-12-13 17:17] LABS: Glucose,Whole Blood 117 mg/dL (75-99)
[2017-12-13] MEDS ORDERED: CISATRACURIUM 2 MG/ML 5 ML VIAL IV ONE ×2 (17:37→17:40)
[2017-12-13 17:39] LABS: Glucose,Whole Blood 116 mg/dL (75-99)
[2017-12-13 17:42] LABS: ABG Base Excess -1.2 mmol/L; ABG HCO3 27 mmol/L (21-25); ABG Oxygen Saturation 94.5 % (94-97); ABG PCO2 66 mmHg (35-45); ABG PH 7.22 (7.35-7.45); ABG PO2 84 mmHg (83-108); ABG TCO2 29 mmol/L (19-24)
--- NOTE | 2017-12-13 18:09 | XR ---
EXAMINATION TYPE: XR chest 1V portable DATE OF EXAM: 12/13/2017 COMPARISON: Today HISTORY: Short of breath TECHNIQUE: Single frontal view of the chest is obtained. FINDINGS: Endotracheal tube is 4 cm from the pedrito. Right jugular catheter has tip in the right pul monary artery. There is nasogastric tube in good position. There are sternal wires. There is a left c hest tube. There is a small right-sided pneumothorax. Trachea is midline.. IMPRESSION: There is a 15% right pneumothorax that appears new compared to the exam 2 hours ago.
[2017-12-13 18:14] LABS: Glucose,Whole Blood 128 mg/dL (75-99)
[2017-12-13] MEDS: ACETAMINOPHEN IV (For NPO) 1,000 MG in EMPTY BAG 1 BAG IVPB SCH ×2 (18:19→23:44)
[2017-12-13 18:39] LABS: ABG Base Excess -0.9 mmol/L; ABG HCO3 26 mmol/L (21-25); ABG Oxygen Saturation 96.7 % (94-97); ABG PCO2 56 mmHg (35-45); ABG PH 7.27 (7.35-7.45); ABG PO2 91 mmHg (83-108); ABG TCO2 28 mmol/L (19-24)
[2017-12-13 18:45] LABS: Basophils % (A) 0 %; Eosinophils % (A) 0 %; HCT 32.8 % (39.0-53.0); Lymphocytes % (A) 6 %; MCH 28.1 pg (25.0-35.0); MCHC 33.7 g/dL (31.0-37.0); MCV 83.5 fL (80.0-100.0); Mean Platelet Volume 7.1; Monocytes % (A) 7 %; Neutrophils % (A) 86 %; Platelet Count 235 k/uL (150-450); RBC 3.93 m/uL (4.30-5.90); RDW 13.4 % (11.5-15.5); WBC 9.3 k/uL (3.8-10.6)
[2017-12-13 18:46] LABS: Lymphocytes # (A) 0.5 k/uL (1.0-4.8); Monocytes # (A) 0.7 k/uL (0-1.0); Neutrophils # (A) 7.9 k/uL (1.3-7.7)
[2017-12-13 19:38] LABS: ABG Base Excess -0.7 mmol/L; ABG HCO3 25 mmol/L (21-25); ABG Oxygen Saturation 96.6 % (94-97); ABG PCO2 43 mmHg (35-45); ABG PH 7.37 (7.35-7.45); ABG PO2 81 mmHg (83-108); ABG TCO2 26 mmol/L (19-24)
[2017-12-13 20:00] LABS: Glucose,Whole Blood 154 mg/dL (75-99)
[2017-12-13] MEDS: METOPROLOL TARTRATE 12.5 MG TAB PO SCH (20:22)
[2017-12-13] MEDS ORDERED: IPRATROPIUM-ALBUTEROL 3 ML NEB INHALATION SCH (20:23)
[2017-12-13 20:59] LABS: Glucose,Whole Blood 154 mg/dL (75-99)
[2017-12-13] MEDS: ALBUMIN HUMAN 5% 250 ML in EMPTY BAG 1 BAG IVPB PRN (21:11)
[2017-12-13] MEDS: MUPIROCIN 2% OINT 22 GM TUBE NASAL SCH (21:13)
[2017-12-13 21:19] LABS: Basophils % (A) 0 %; Eosinophils % (A) 0 %; HCT 30.3 % (39.0-53.0); HGB 10.4 gm/dL (13.0-17.5); Lymphocytes # (A) 0.4 k/uL (1.0-4.8); Lymphocytes % (A) 5 %; MCH 28.3 pg (25.0-35.0); MCHC 34.4 g/dL (31.0-37.0); MCV 82.1 fL (80.0-100.0); Mean Platelet Volume 7.7; Monocytes # (A) 0.6 k/uL (0-1.0); Monocytes % (A) 7 %; Neutrophils # (A) 6.8 k/uL (1.3-7.7); Neutrophils % (A) 86 %; Platelet Count 210 k/uL (150-450); RBC 3.69 m/uL (4.30-5.90); RDW 13.4 % (11.5-15.5); WBC 7.9 k/uL (3.8-10.6)
[2017-12-13 21:54] LABS: Glucose,Whole Blood 128 mg/dL (75-99)
[2017-12-13] MEDS: HEPARIN SODIUM,PORCINE 5,000 UNIT/ML 1 ML VIAL SQ SCH (22:13)
[2017-12-13 22:55] LABS: Glucose,Whole Blood 106 mg/dL (75-99)
[2017-12-13 23:47] LABS: ABG Base Excess -0.6 mmol/L; ABG HCO3 24 mmol/L (21-25); ABG Oxygen Saturation 92.7 % (94-97); ABG PCO2 39 mmHg (35-45); ABG PO2 60 mmHg (83-108); ABG TCO2 26 mmol/L (19-24)
[2017-12-14 00:03] LABS: Glucose,Whole Blood 117 mg/dL (75-99)
[2017-12-14] MEDS: ALBUMIN HUMAN 5% 250 ML in EMPTY BAG 1 BAG IVPB PRN ×3 (00:39→18:26)
[2017-12-14 01:00] LABS: Glucose,Whole Blood 123 mg/dL (75-99)
[2017-12-14 02:05] LABS: Glucose,Whole Blood 123 mg/dL (75-99)
[2017-12-14 03:02] LABS: Glucose,Whole Blood 123 mg/dL (75-99)
[2017-12-14] MEDS: IPRATROPIUM-ALBUTEROL 3 ML NEB INHALATION SCH ×6 (03:24→23:35)
[2017-12-14 04:01] LABS: Glucose,Whole Blood 121 mg/dL (75-99)
[2017-12-14 04:18] LABS: Basophils % (A) 0 %; Eosinophils # (A) 0.1 k/uL (0-0.7); Eosinophils % (A) 1 %; HGB 10.2 gm/dL (13.0-17.5); Lymphocytes % (A) 11 %; MCH 27.7 pg (25.0-35.0); MCHC 33.9 g/dL (31.0-37.0); MCV 81.7 fL (80.0-100.0); Mean Platelet Volume 7.7; Monocytes # (A) 0.7 k/uL (0-1.0); Monocytes % (A) 8 %; Neutrophils # (A) 7.1 k/uL (1.3-7.7); Neutrophils % (A) 78 %; Platelet Count 204 k/uL (150-450); RBC 3.67 m/uL (4.30-5.90); RDW 13.2 % (11.5-15.5); WBC 9.1 k/uL (3.8-10.6)
[2017-12-14 04:21] LABS: Ionized Calcium 4.8 mg/dL (4.5-5.3)
[2017-12-14 04:30] LABS: INR 1.2 (<1.2); Partial Thromboplastin Time 23.5 sec (22.0-30.0); Prothrombin Time 11.2 sec (9.0-12.0)
[2017-12-14 04:32] LABS: ALT 40 U/L (21-72); AST 49 U/L (17-59); Albumin 3.5 g/dL (3.5-5.0); Alkaline Phosphatase 41 U/L (38-126); Anion Gap 9 mmol/L; Blood Urea Nitrogen 12 mg/dL (9-20); Calcium 8.4 mg/dL (8.4-10.2); Carbon Dioxide 23 mmol/L (22-30); Chloride 107 mmol/L (98-107); Glucose 107 mg/dL (74-99); Potassium 4.1 mmol/L (3.5-5.1); Sodium 139 mmol/L (137-145); Total Bilirubin 0.9 mg/dL (0.2-1.3); Total Protein 5.5 g/dL (6.3-8.2)
[2017-12-14] MEDS ORDERED: Magnesium Replacement Protocol 1 EACH MISC MISCELLANE PRN (04:48)
[2017-12-14 05:05] LABS: Glucose,Whole Blood 124 mg/dL (75-99)
[2017-12-14 05:57] LABS: Glucose,Whole Blood 115 mg/dL (75-99)
[2017-12-14] MEDS: ACETAMINOPHEN IV (For NPO) 1,000 MG in EMPTY BAG 1 BAG IVPB SCH ×3 (06:02→17:18)
[2017-12-14] MEDS: MAGNESIUM SULFATE-D5W PMX 1 GM in DEXTROSE/WATER 1 100ML.BAG IVPB SCH ×2 (06:14→08:28)
[2017-12-14 07:06] LABS: Glucose,Whole Blood 128 mg/dL (75-99)
--- NOTE | 2017-12-14 08:11 | PN ---
PROGRESS NOTE Mr. Li is a 57-year-old male who underwent coronary artery bypass grafting yesterday. He is extubated. Currently remains in sinus mechanism. He developed a pneumothorax and is scheduled to undergo chest tube placement. Hemodynamically, he is stable. He has no chest pain or significant dyspnea. He denies any dizziness or palpitation. He was anxious earlier, but under better control at this time. He continues to be on metoprolol tartrate 12.5 mg twice a day, aspirin once a day, Lipitor 40 mg daily, Plavix 75 mg daily. PHYSICAL EXAMINATION: Blood pressure 129/60 with the heart rate in the 90s. LUNGS: With mild decrease in air exchange. No wheezes. HEART: Regular rate and rhythm. S1, S2, plus rub. No gallop. ABDOMEN: Soft, nontender. Positive bowel sounds. EXTREMITIES: Dressing in place. LAB DATA: Lab data revealed BUN and creatinine 12 and 0.7. Potassium 4.1. Hemoglobin of 10.2. IMPRESSION: 1. Status post coronary artery bypass grafting. 2. Pneumothorax. 3. Cardiomyopathy. 4. Hyperlipidemia. 5. Diabetes mellitus. RECOMMENDATION: Patient will receive the chest tube today. If his pressure is stable, then I will add an LAURA inhibitor to his regimen. Continue the rest of his medical regimen and depending on his progress, further recommendation will be made. BERTRAML / ADELINEN: [id number] /
[2017-12-14 08:15] LABS: Glucose,Whole Blood 132 mg/dL (75-99)
[2017-12-14] MEDS: HEPARIN SODIUM,PORCINE 5,000 UNIT/ML 1 ML VIAL SQ SCH ×3 (08:29→23:06)
[2017-12-14] MEDS: ceFAZolin IN SWFI 2 GM/20 ML SYRINGE IVP SCH (08:29)
[2017-12-14] MEDS: PANTOPRAZOLE 40 MG/10 ML VIAL IVP SCH (08:29)
[2017-12-14] MEDS: MUPIROCIN 2% OINT 22 GM TUBE NASAL SCH ×2 (08:30→21:01)
[2017-12-14] MEDS: ATORVASTATIN 40 MG TAB PO SCH (08:30)
[2017-12-14] MEDS: METOPROLOL TARTRATE 12.5 MG TAB PO SCH ×2 (08:30→21:01)
[2017-12-14] MEDS: amLODIPine 5 MG TAB PO SCH (08:31)
[2017-12-14] MEDS: CLOPIDOGREL 75 MG TAB PO SCH (08:31)
[2017-12-14] MEDS ORDERED: METOPROLOL TARTRATE 12.5 MG TAB PO SCH (09:00)
--- NOTE | 2017-12-14 09:01 | P.PN ---
Subjective Progress Note Date: 12/14/17 Principal diagnosis: Triple-vessel coronary artery disease, status post acute anterior wall myocardial infarction, moderate left ventricular dysfunction with the preoperative ejection fraction 30-35% per echocardiogram, hypertension, uncontrolled diabetes with preoperative hemoglobin A1c 10.8%, hyperlipidemia, tobacco abuse with preoperative FEV1 38% of predicted, noncompliance with medical therapy. POD #1 urgent multiple arterial triple coronary artery bypass grafting using the left internal mammary artery to the left anterior descending artery, the left radial artery from the aorta to the obtuse marginal artery, reverse saphenous vein graft from the aorta to the takeoff of the posterior descending artery. Endoscopic harvesting of the left radial artery. Endoscopic harvesting of the left greater saphenous vein from the groin to the knee level. Intraoperative transesophageal echocardiogram and epi-aortic scanning. Intraoperative graft flow measurements using the [employer] system. The patient is currently laying in bed in no acute distress. He was successfully extubated this morning at 00:35. He is hemodynamically stable. Chest x-ray this morning demonstrates apical and lateral wall right-sided pneumothorax. He states pain is well controlled on ordered medication, denies shortness of breath. Objective - Vital Signs Vital signs: Vital Signs Temp 99.9 F H 12/14/17 04:00 Pulse 95 12/14/17 07:00 Resp 15 12/14/17 07:00 BP 84/60 12/14/17 00:00 Pulse Ox 94 L 12/14/17 07:00 Intake & Output 12/13/17 12/14/17 12/14/17 18:59 06:59 18:59 Intake Total 300.217 4628.881 159 Output Total 2068 1406 52 Balance -1601.234 441.881 107 Weight 90.8 kg Intake: IV 400 1808 159 ACETAMINOPHEN IV (For NPO 200 ) 1,000 mg In Empty Bag 1 bag @ 400 mls/hr IVPB Q6HR [facility] Rx#:[id number] Albumin 250 Albumin Human 5% 250 ml 500 In Empty Bag 1 bag @ 250 mls/hr IVPB Q1HR PRN Rx#: [id number] CI/CO 280 0 Lactated Ringers 150 600 50 Magnesium Sulfate-D5w Pmx 100 100 1 gm In Dextrose/Water 1 100ml.bag @ 100 mls/hr IVPB Q1H [facility] Rx#: [id number] ceFAZolin 2 gm In Sodium 20 Chloride 0.9% 30 ml @ 60 mls/hr IVPB ONCE ONE Rx#: [id number] pressure bag 108 9 Intake, IV Titration 66.766 39.881 Amount Clevidipine Butyrate 25 51.067 mg In Empty Bag 1 bag @ 1 MG/HR 2 mls/hr IV .Q24H [facility] Rx#:[id number] Dexmedetomidine/0.9% NaCl 15.699 10.15 (Pmx) 400 mcg In Empty Bag 1 bag @ Titrate IV . Q0M [facility] Rx#:[id number] Insulin Regular 100 unit 7.209 In Sodium Chloride 0.9% 100 ml @ Per Protocol IV .Q0M [facility] Rx#:[id number] Propofol 1,000 mg In 22.522 Empty Bag 1 bag @ Titrate IV .Q0M [facility] Rx#: [id number] Output: Chest Tube Drainage 421 12 Left pleural 116 7 Mediastinal 305 5 Gastric Drainage 160 Drainage 203 210 Left Arm 60 Left Chest 13 0 Left Lower Calf 60 Medial Chest 190 90 Urine 665 615 40 Estimated Blood Loss 1200 Other: Voiding Method Indwelling Catheter Indwelling Catheter ABP, PAP, CO, CI - Last Documented Arterial Blood Pressure 129/64 Pulmonary Artery Pressure 47/21 Cardiac Output 8.8 Cardiac Index 4.4 - Constitutional General appearance: Present: cooperative, no acute distress - Respiratory Details: Lungs sounds diminished bilaterally, right greater than left. Respirations even , nonlabored. Currently on 8 L high flow nasal cannula with oxygen saturation 97%. Able to achieve 1000 mL on his incentive spirometry. Effective cough. Mediastinal chest tube to continuous wall suction, 275 mL serosanguineous drainage overnight, 550 mL since surgery, positive air leak. Left pleural chest tube to continuous wall suction, 95 mL serosanguineous drainage overnight , 150 mL since surgery, no air leak present. - Cardiovascular Details: S1, S2 present, positive pericardial rub. Regular rate and rhythm, sinus rhythm on telemetry. Sternum stable. A/V epicardial pacemaker wires present, connected to generator, VVI mode with backup rate 50 bpm. Palpable peripheral pulses bilaterally. No edema present. No calf pain or tenderness noted. Right internal jugular Dover/Cordis, right radial arterial line present. Last CO /CI 8.8/4.4 on no inotropes. Heart hugger in place with patient demonstrating appropriate use. Antiembolism stockings, SCDs present. - Gastrointestinal Gastrointestinal Comment(s): Abdomen soft, nontender, nondistended. Hypoactive bowel sounds present 4 quadrants. Tolerating clear liquids. No flatus yet. - Genitourinary Genitourinary Comment(s): Vernon present draining clear, yellow urine. Output 35-45 mL per hour overnight. - Integumentary Integumentary Comment(s): Skin is warm and dry is evidence of good perfusion. Anterior chest incision well approximated with dry intact dressing. Left radial harvest site well approximated, DOUGIE drain drill present with minimal serosanguineous drainage. Left lower extremity EVH site well approximated, DOUGIE drain present with minimal serosanguineous drainage. - Neurologic Neurologic: Present: CNII-XII intact - Musculoskeletal Musculoskeletal: Present: strength equal bilaterally - Psychiatric Psychiatric: Present: A&O x's 3, appropriate affect, intact judgment & insight - Allied health notes Allied health notes reviewed: nursing - Labs CBC & Chem 7: 12/14/17 04:05 12/14/17 04:05 Labs: Abnormal Lab Results - Last 24 Hours (Table) 12/12/17 12/13/17 12/13/17 Range/Units 05:44 08:49 10:44 RBC (4.30-5.90) m/uL Hgb (13.0-17.5) gm/dL Hct (39.0-53.0) % Neutrophils # (1.3-7.7) k/uL Lymphocytes # (1.0-4.8) k/uL INR (<1.2) ABG pH 7.30 L (7.35-7.45) ABG pCO2 47 H (35-45) mmHg ABG pO2 271 H 187 H (83-108) mmHg ABG HCO3 (21-25) mmol/L ABG Total CO2 25 H (19-24) mmol/L ABG O2 Saturation 100.0 H 99.5 H (94-97) % ABG Hematocrit (34.0-46.0) % ABG Sodium (135-146) mmol/L ABG Potassium 4.9 H (3.4-4.5) mmol/L ABG Ionized Calcium (4.5-5.3) mg/dL ABG Glucose 141 H 182 H (75-99) mg/dL Hemoglobin 12.9 L 12.2 L (13.0-17.5) gm/dL Chloride (98-107) mmol/L Glucose (74-99) mg/dL POC Glucose (mg/dL) (75-99) mg/dL Magnesium (1.6-2.3) mg/dL Total Protein (6.3-8.2) g/dL Albumin (3.5-5.0) g/dL Arterial Blood Potassium 4.9 H (3.4-4.5) mmol/L Arterial Blood Glucose 141 H 182 H (75-99) mg/dL Crossmatch See Detail 12/13/17 12/13/17 12/13/17 Range/Units 11:34 12:12 12:34 RBC (4.30-5.90) m/uL Hgb (13.0-17.5) gm/dL Hct (39.0-53.0) % Neutrophils # (1.3-7.7) k/uL Lymphocytes # (1.0-4.8) k/uL INR (<1.2) ABG pH 7.33 L (7.35-7.45) ABG pCO2 (35-45) mmHg ABG pO2 228 H 216 H 144 H (83-108) mmHg ABG HCO3 26 H (21-25) mmol/L ABG Total CO2 27 H 25 H 25 H (19-24) mmol/L ABG O2 Saturation 99.8 H 99.8 H 99.2 H (94-97) % ABG Hematocrit 29 L 32 L 30 L (34.0-46.0) % ABG Sodium 134 L 132 L 132 L (135-146) mmol/L ABG Potassium 4.9 H 6.8 H* 6.7 H* (3.4-4.5) mmol/L ABG Ionized Calcium 4.0 L 4.2 L 4.2 L (4.5-5.3) mg/dL ABG Glucose 164 H 268 H 252 H (75-99) mg/dL Hemoglobin 9.5 L 10.3 L 9.7 L (13.0-17.5) gm/dL Chloride (98-107) mmol/L Glucose (74-99) mg/dL POC Glucose (mg/dL) (75-99) mg/dL Magnesium (1.6-2.3) mg/dL Total Protein (6.3-8.2) g/dL Albumin (3.5-5.0) g/dL Arterial Blood Potassium 4.9 H 6.8 H* 6.7 H* (3.4-4.5) mmol/L Arterial Blood Glucose 164 H 268 H 252 H (75-99) mg/dL Crossmatch 12/13/17 12/13/17 12/13/17 Range/Units 15:00 15:00 15:01 RBC 3.91 L (4.30-5.90) m/uL Hgb 11.2 L (13.0-17.5) gm/dL Hct 32.2 L (39.0-53.0) % Neutrophils # (1.3-7.7) k/uL Lymphocytes # (1.0-4.8) k/uL INR (<1.2) ABG pH (7.35-7.45) ABG pCO2 (35-45) mmHg ABG pO2 (83-108) mmHg ABG HCO3 (21-25) mmol/L ABG Total CO2 (19-24) mmol/L ABG O2 Saturation (94-97) % ABG Hematocrit (34.0-46.0) % ABG Sodium (135-146) mmol/L ABG Potassium (3.4-4.5) mmol/L ABG Ionized Calcium (4.5-5.3) mg/dL ABG Glucose (75-99) mg/dL Hemoglobin (13.0-17.5) gm/dL Chloride 108 H (98-107) mmol/L Glucose (74-99) mg/dL POC Glucose (mg/dL) 101 H (75-99) mg/dL Magnesium 2.6 H (1.6-2.3) mg/dL Total Protein 5.3 L (6.3-8.2) g/dL Albumin 3.1 L (3.5-5.0) g/dL Arterial Blood Potassium (3.4-4.5) mmol/L Arterial Blood Glucose (75-99) mg/dL Crossmatch 12/13/17 12/13/17 12/13/17 Range/Units 15:15 17:15 17:37 RBC (4.30-5.90) m/uL Hgb (13.0-17.5) gm/dL Hct (39.0-53.0) % Neutrophils # (1.3-7.7) k/uL Lymphocytes # (1.0-4.8) k/uL INR (<1.2) ABG pH 7.26 L (7.35-7.45) ABG pCO2 62 H (35-45) mmHg ABG pO2 280 H (83-108) mmHg ABG HCO3 28 H (21-25) mmol/L ABG Total CO2 30 H (19-24) mmol/L ABG O2 Saturation 99.7 H (94-97) % ABG Hematocrit (34.0-46.0) % ABG Sodium (135-146) mmol/L ABG Potassium (3.4-4.5) mmol/L ABG Ionized Calcium (4.5-5.3) mg/dL ABG Glucose (75-99) mg/dL Hemoglobin (13.0-17.5) gm/dL Chloride (98-107) mmol/L Glucose (74-99) mg/dL POC Glucose (mg/dL) 117 H 116 H (75-99) mg/dL Magnesium (1.6-2.3) mg/dL Total Protein (6.3-8.2) g/dL Albumin (3.5-5.0) g/dL Arterial Blood Potassium (3.4-4.5) mmol/L Arterial Blood Glucose (75-99) mg/dL Crossmatch 12/13/17 12/13/17 12/13/17 Range/Units 17:39 18:00 18:13 RBC 3.93 L (4.30-5.90) m/uL Hgb 11.0 L (13.0-17.5) gm/dL Hct 32.8 L (39.0-53.0) % Neutrophils # 7.9 H (1.3-7.7) k/uL Lymphocytes # 0.5 L (1.0-4.8) k/uL INR (<1.2) ABG pH 7.22 L (7.35-7.45) ABG pCO2 66 H (35-45) mmHg ABG pO2 (83-108) mmHg ABG HCO3 27 H (21-25) mmol/L ABG Total CO2 29 H (19-24) mmol/L ABG O2 Saturation (94-97) % ABG Hematocrit (34.0-46.0) % ABG Sodium (135-146) mmol/L ABG Potassium (3.4-4.5) mmol/L ABG Ionized Calcium (4.5-5.3) mg/dL ABG Glucose (75-99) mg/dL Hemoglobin (13.0-17.5) gm/dL Chloride (98-107) mmol/L Glucose (74-99) mg/dL POC Glucose (mg/dL) 128 H (75-99) mg/dL Magnesium (1.6-2.3) mg/dL Total Protein (6.3-8.2) g/dL Albumin (3.5-5.0) g/dL Arterial Blood Potassium (3.4-4.5) mmol/L Arterial Blood Glucose (75-99) mg/dL Crossmatch 12/13/17 12/13/17 12/13/17 Range/Units 18:35 19:36 19:59 RBC (4.30-5.90) m/uL Hgb (13.0-17.5) gm/dL Hct (39.0-53.0) % Neutrophils # (1.3-7.7) k/uL Lymphocytes # (1.0-4.8) k/uL INR (<1.2) ABG pH 7.27 L (7.35-7.45) ABG pCO2 56 H (35-45) mmHg ABG pO2 81 L (83-108) mmHg ABG HCO3 26 H (21-25) mmol/L ABG Total CO2 28 H 26 H (19-24) mmol/L ABG O2 Saturation (94-97) % ABG Hematocrit (34.0-46.0) % ABG Sodium (135-146) mmol/L ABG Potassium (3.4-4.5) mmol/L ABG Ionized Calcium (4.5-5.3) mg/dL ABG Glucose (75-99) mg/dL Hemoglobin (13.0-17.5) gm/dL Chloride (98-107) mmol/L Glucose (74-99) mg/dL POC Glucose (mg/dL) 154 H (75-99) mg/dL Magnesium (1.6-2.3) mg/dL Total Protein (6.3-8.2) g/dL Albumin (3.5-5.0) g/dL Arterial Blood Potassium (3.4-4.5) mmol/L Arterial Blood Glucose (75-99) mg/dL Crossmatch 12/13/17 12/13/17 12/13/17 Range/Units 20:57 21:00 21:53 RBC 3.69 L (4.30-5.90) m/uL Hgb 10.4 L (13.0-17.5) gm/dL Hct 30.3 L (39.0-53.0) % Neutrophils # (1.3-7.7) k/uL Lymphocytes # 0.4 L (1.0-4.8) k/uL INR (<1.2) ABG pH (7.35-7.45) ABG pCO2 (35-45) mmHg ABG pO2 (83-108) mmHg ABG HCO3 (21-25) mmol/L ABG Total CO2 (19-24) mmol/L ABG O2 Saturation (94-97) % ABG Hematocrit (34.0-46.0) % ABG Sodium (135-146) mmol/L ABG Potassium (3.4-4.5) mmol/L ABG Ionized Calcium (4.5-5.3) mg/dL ABG Glucose (75-99) mg/dL Hemoglobin (13.0-17.5) gm/dL Chloride (98-107) mmol/L Glucose (74-99) mg/dL POC Glucose (mg/dL) 154 H 128 H (75-99) mg/dL Magnesium (1.6-2.3) mg/dL Total Protein (6.3-8.2) g/dL Albumin (3.5-5.0) g/dL Arterial Blood Potassium (3.4-4.5) mmol/L Arterial Blood Glucose (75-99) mg/dL Crossmatch 12/13/17 12/13/17 12/14/17 Range/Units 22:53 23:46 00:01 RBC (4.30-5.90) m/uL Hgb (13.0-17.5) gm/dL Hct (39.0-53.0) % Neutrophils # (1.3-7.7) k/uL Lymphocytes # (1.0-4.8) k/uL INR (<1.2) ABG pH (7.35-7.45) ABG pCO2 (35-45) mmHg ABG pO2 60 L (83-108) mmHg ABG HCO3 (21-25) mmol/L ABG Total CO2 26 H (19-24) mmol/L ABG O2 Saturation 92.7 L (94-97) % ABG Hematocrit (34.0-46.0) % ABG Sodium (135-146) mmol/L ABG Potassium (3.4-4.5) mmol/L ABG Ionized Calcium (4.5-5.3) mg/dL ABG Glucose (75-99) mg/dL Hemoglobin (13.0-17.5) gm/dL Chloride (98-107) mmol/L Glucose (74-99) mg/dL POC Glucose (mg/dL) 106 H 117 H (75-99) mg/dL Magnesium (1.6-2.3) mg/dL Total Protein (6.3-8.2) g/dL Albumin (3.5-5.0) g/dL Arterial Blood Potassium (3.4-4.5) mmol/L Arterial Blood Glucose (75-99) mg/dL Crossmatch 12/14/17 12/14/17 12/14/17 Range/Units 00:59 02:05 03:00 RBC (4.30-5.90) m/uL Hgb (13.0-17.5) gm/dL Hct (39.0-53.0) % Neutrophils # (1.3-7.7) k/uL Lymphocytes # (1.0-4.8) k/uL INR (<1.2) ABG pH (7.35-7.45) ABG pCO2 (35-45) mmHg ABG pO2 (83-108) mmHg ABG HCO3 (21-25) mmol/L ABG Total CO2 (19-24) mmol/L ABG O2 Saturation (94-97) % ABG Hematocrit (34.0-46.0) % ABG Sodium (135-146) mmol/L ABG Potassium (3.4-4.5) mmol/L ABG Ionized Calcium (4.5-5.3) mg/dL ABG Glucose (75-99) mg/dL Hemoglobin (13.0-17.5) gm/dL Chloride (98-107) mmol/L Glucose (74-99) mg/dL POC Glucose (mg/dL) 123 H 123 H 123 H (75-99) mg/dL Magnesium (1.6-2.3) mg/dL Total Protein (6.3-8.2) g/dL Albumin (3.5-5.0) g/dL Arterial Blood Potassium (3.4-4.5) mmol/L Arterial Blood Glucose (75-99) mg/dL Crossmatch 12/14/17 12/14/17 12/14/17 Range/Units 03:59 04:05 04:05 RBC 3.67 L (4.30-5.90) m/uL Hgb 10.2 L (13.0-17.5) gm/dL Hct 30.0 L (39.0-53.0) % Neutrophils # (1.3-7.7) k/uL Lymphocytes # (1.0-4.8) k/uL INR (<1.2) ABG pH (7.35-7.45) ABG pCO2 (35-45) mmHg ABG pO2 (83-108) mmHg ABG HCO3 (21-25) mmol/L ABG Total CO2 (19-24) mmol/L ABG O2 Saturation (94-97) % ABG Hematocrit (34.0-46.0) % ABG Sodium (135-146) mmol/L ABG Potassium (3.4-4.5) mmol/L ABG Ionized Calcium (4.5-5.3) mg/dL ABG Glucose (75-99) mg/dL Hemoglobin (13.0-17.5) gm/dL Chloride (98-107) mmol/L Glucose 107 H (74-99) mg/dL POC Glucose (mg/dL) 121 H (75-99) mg/dL Magnesium (1.6-2.3) mg/dL Total Protein 5.5 L (6.3-8.2) g/dL Albumin (3.5-5.0) g/dL Arterial Blood Potassium (3.4-4.5) mmol/L Arterial Blood Glucose (75-99) mg/dL Crossmatch 12/14/17 12/14/17 12/14/17 Range/Units 04:15 05:03 05:56 RBC (4.30-5.90) m/uL Hgb (13.0-17.5) gm/dL Hct (39.0-53.0) % Neutrophils # (1.3-7.7) k/uL Lymphocytes # (1.0-4.8) k/uL INR 1.2 H (<1.2) ABG pH (7.35-7.45) ABG pCO2 (35-45) mmHg ABG pO2 (83-108) mmHg ABG HCO3 (21-25) mmol/L ABG Total CO2 (19-24) mmol/L ABG O2 Saturation (94-97) % ABG Hematocrit (34.0-46.0) % ABG Sodium (135-146) mmol/L ABG Potassium (3.4-4.5) mmol/L ABG Ionized Calcium (4.5-5.3) mg/dL ABG Glucose (75-99) mg/dL Hemoglobin (13.0-17.5) gm/dL Chloride (98-107) mmol/L Glucose (74-99) mg/dL POC Glucose (mg/dL) 124 H 115 H (75-99) mg/dL Magnesium (1.6-2.3) mg/dL Total Protein (6.3-8.2) g/dL Albumin (3.5-5.0) g/dL Arterial Blood Potassium (3.4-4.5) mmol/L Arterial Blood Glucose (75-99) mg/dL Crossmatch 12/14/17 12/14/17 Range/Units 07:03 08:14 RBC (4.30-5.90) m/uL Hgb (13.0-17.5) gm/dL Hct (39.0-53.0) % Neutrophils # (1.3-7.7) k/uL Lymphocytes # (1.0-4.8) k/uL INR (<1.2) ABG pH (7.35-7.45) ABG pCO2 (35-45) mmHg ABG pO2 (83-108) mmHg ABG HCO3 (21-25) mmol/L ABG Total CO2 (19-24) mmol/L ABG O2 Saturation (94-97) % ABG Hematocrit (34.0-46.0) % ABG Sodium (135-146) mmol/L ABG Potassium (3.4-4.5) mmol/L ABG Ionized Calcium (4.5-5.3) mg/dL ABG Glucose (75-99) mg/dL Hemoglobin (13.0-17.5) gm/dL Chloride (98-107) mmol/L Glucose (74-99) mg/dL POC Glucose (mg/dL) 128 H 132 H (75-99) mg/dL Magnesium (1.6-2.3) mg/dL Total Protein (6.3-8.2) g/dL Albumin (3.5-5.0) g/dL Arterial Blood Potassium (3.4-4.5) mmol/L Arterial Blood Glucose (75-99) mg/dL Crossmatch - Imaging and Cardiology Chest x-ray: image reviewed Assessment and Plan (1) Non-STEMI (non-ST elevated myocardial infarction) Current Visit: Yes Status: Acute Code(s): I21.4 - NON-ST ELEVATION (NSTEMI) MYOCARDIAL INFARCTION SNOMED Code(s): 383048149 (2) Hypertension Current Visit: Yes Status: Chronic Code(s): I10 - ESSENTIAL (PRIMARY) HYPERTENSION SNOMED Code(s): 66601877 (3) Hyperlipidemia Current Visit: Yes Status: Chronic Code(s): E78.5 - HYPERLIPIDEMIA, UNSPECIFIED SNOMED Code(s): 23071755 (4) History of stroke Current Visit: No Status: Resolved Code(s): Z86.73 - PRSNL HX OF TIA (TIA), AND CEREB INFRC W/O RESID DEFICITS SNOMED Code(s): 352282549 (5) Tobacco dependence Current Visit: Yes Status: Chronic Code(s): F17.200 - NICOTINE DEPENDENCE, UNSPECIFIED, UNCOMPLICATED SNOMED Code(s): 38260962 (6) Family history of premature coronary artery disease Current Visit: Yes Status: Chronic Code(s): Z82.49 - FAMILY HX OF ISCHEM HEART DIS AND OTH DIS OF THE CIRC SYS SNOMED Code(s): 176417416 (7) Diabetes mellitus Current Visit: Yes Status: Chronic Code(s): E11.9 - TYPE 2 DIABETES MELLITUS WITHOUT COMPLICATIONS SNOMED Code(s): 55123797 (8) Acute coronary syndrome Current Visit: Yes Status: Acute Code(s): I24.9 - ACUTE ISCHEMIC HEART DISEASE, UNSPECIFIED SNOMED Code(s): 830211660 Plan: 1. Continue aspirin, statin, Plavix, subcu heparin, beta suzie. Will increase beta suzie therapy as tolerated. Patient will need Juvenal inhibitor, will add as blood pressure tolerates. 2. Will add Norvasc for prevention of radial artery spasm. Will discontinue nitro drip. 3. Wean O2 as tolerated. Encourage incentive spirometry use 10 times every hour. 4. Will place a right-sided thoravent to continuous wall suction to aid in re- expansion of right-sided pneumothorax. 5. Encourage smoking cessation. 6. Increase activity, up to chair, ambulate as tolerated. PT/OT/cardiac rehab following. 7. Will discontinue Dover-Lilia catheter. Connected Cordis to continuous CVP monitoring. 8. Will monitor daily labs and x-rays. 9. GI/DVT prophylaxis. 10. Insulin management per primary care service. 11. Bronchodilators per pulmonology. 12. More recommendations to follow. Time with Patient: Greater than 30
--- NOTE | 2017-12-14 09:01 | P.CNPUL ---
History of Present Illness Consult date: 12/14/17 Reason for consult: other Chief complaint: Postoperative respiratory failure, status post bypass grafting History of present illness: Pulmonary consult dated 12/14/2017 57-year-old male with a history of 99-glyy-mtiy tobacco use mild COPD type 2 diabetes and a history of both hypertension and hyperlipidemia. The patient underwent a three-vessel bypass yesterday. Today is postop day #1. He was extubated right around midnight. He had good weaning parameters and a cuff leak. He was awake and alert. His oxygenation was borderline with a PaO2 of 60 on 40% and 5 of PEEP. Currently he is on 8 L high flow. He's get IV nitroglycerin at a relatively small dose at 1.5 mcg/m, insulin at 1 unit an hour and lactated Ringer's at 50 mL now. Unfortunately, he did develop a right pneumothorax. The thoracic surgeons her to come in and put a Thoravent. The patient feels well. Patient denies any distress. No chest pain or chest discomfort. Review of Systems A 12 point review of system is unremarkable. Other than for some pain subsequent to the surgery, the patient really denies all other complaints. Denies any chest pain chest discomfort or shortness of breath. His surgical site pain is being relieved with pain medication when necessary. Past Medical History Past Medical History: CVA/TIA, Diabetes Mellitus, Hyperlipidemia, Hypertension History of Any Multi-Drug Resistant Organisms: None Reported Past Surgical History: No Surgical Hx Reported Additional Past Surgical History / Comment(s): heart cath 12/09 Past Anesthesia/Blood Transfusion Reactions: No Reported Reaction Past Psychological History: No Psychological Hx Reported Smoking Status: Current every day smoker Past Alcohol Use History: None Reported Past Drug Use History: None Reported - Past Family History Brother(s) Family Medical History: Coronary Artery Disease (CAD) Additional Family Medical History / Comment(s): Brother had 5 vessel coronary artery bypass at 57 years old Medications and Allergies Home Medications Medication Instructions Recorded Confirmed Type No Known Home Medications 12/09/17 12/09/17 History Allergies Allergy/AdvReac Type Severity Reaction Status Date / Time No Known Allergies Allergy Verified 12/09/17 08:09 Physical Exam Osteopathic Statement: *. No significant issues noted on an osteopathic structural exam other than those noted in the History and Physical/Consult. Vitals: Vital Signs Temp Pulse Pulse Resp BP Pulse Ox 07/24/18 07:00 95 15 94 L 12/14/17 06:00 102 H 16 91 L 12/14/17 05:00 96 18 94 L 12/14/17 04:00 99.9 F H 95 24 92 L 12/14/17 03:35 93 12/14/17 03:25 90 12/14/17 03:00 94 17 92 L 12/14/17 02:00 82 14 95 12/14/17 01:00 76 18 94 L 12/14/17 00:00 99.1 F 90 15 84/60 95 12/13/17 23:40 92 14 100/55 93 L 12/13/17 23:10 96 12/13/17 23:00 87 14 85/63 98 12/13/17 22:00 82 23 86/60 100 12/13/17 21:00 86 23 87/59 100 12/13/17 20:04 95 12/13/17 20:00 99.5 F 96 23 100/63 100 12/13/17 19:56 97 12/13/17 19:00 98 94/56 100 12/13/17 18:00 108 H 18 117/65 97 12/13/17 17:00 100.6 F H 114 H 89 L 12/13/17 16:03 114 H 12/13/17 16:00 113 H 95 25 H 99 12/13/17 15:49 104 H 12/13/17 15:00 92 100 12/13/17 14:48 96 12/13/17 14:28 100 Intake and Output 12/13/17 12/14/17 12/14/17 22:59 06:59 14:59 Intake Total 016.289 0601.030 159 Output Total 1297 977 52 Balance -450.383 491.030 107 Intake: IV 756 1452 159 ACETAMINOPHEN IV (For NPO 200 ) 1,000 mg In Empty Bag 1 bag @ 400 mls/hr IVPB Q6HR KISHA Rx#:[id number] Albumin 250 Albumin Human 5% 250 ml 500 In Empty Bag 1 bag @ 250 mls/hr IVPB Q1HR PRN Rx#: [id number] CI/CO 120 160 0 Lactated Ringers 350 400 50 Magnesium Sulfate-D5w Pmx 100 100 1 gm In Dextrose/Water 1 100ml.bag @ 100 mls/hr IVPB Q1H KISHA Rx#: [id number] ceFAZolin 2 gm In Sodium 20 Chloride 0.9% 30 ml @ 60 mls/hr IVPB ONCE ONE Rx#: [id number] pressure bag 36 72 9 Intake, IV Titration 90.617 16.030 Amount Clevidipine Butyrate 25 51.067 mg In Empty Bag 1 bag @ 1 MG/HR 2 mls/hr IV .Q24H KISHA Rx#:[id number] Dexmedetomidine/0.9% NaCl 15.699 10.15 (Pmx) 400 mcg In Empty Bag 1 bag @ Titrate IV . Q0M KISHA Rx#:[id number] Insulin Regular 100 unit 7.209 0 In Sodium Chloride 0.9% 100 ml @ Per Protocol IV .Q0M KISHA Rx#:[id number] Propofol 1,000 mg In 16.642 5.880 Empty Bag 1 bag @ Titrate IV .Q0M KISHA Rx#: [id number] Output: Chest Tube Drainage 51 370 12 Left pleural 21 95 7 Mediastinal 30 275 5 Gastric Drainage 160 Drainage 273 140 Left Arm 20 40 Left Chest 13 0 Left Lower Calf 20 40 Medial Chest 220 60 Urine 973 307 40 Other: Voiding Method Indwelling Catheter Indwelling Catheter Weight 81.2 kg 90.8 kg ABP, PAP, CO, CI - Last 8 Hours Arterial Blood Pressure 129/64 Arterial Blood Pressure 97/44 Arterial Blood Pressure 116/56 Arterial Blood Pressure 137/60 Arterial Blood Pressure 119/57 Arterial Blood Pressure 107/51 Arterial Blood Pressure 109/55 Pulmonary Artery Pressure 47/21 Pulmonary Artery Pressure 36/18 Pulmonary Artery Pressure 46/20 Cardiac Output 8.8 Cardiac Output 6.9 Cardiac Output 5.6 Cardiac Index 4.4 Cardiac Index 3.5 Cardiac Index 2.8 No acute distress, oriented 3. Nasal O2 in place. HEENT examination is grossly unremarkable. Mucous membranes are moist. No oral lesions. Neck supple. Full range of motion. No adenopathy thyromegaly or neck vein distention. Cardiovascular examination reveals regular rhythm rate. S1-S2 normal. No S3 or S4. No discernible murmur noted. Lungs reveal mostly clear breath sounds. A few scattered rhonchi are noted. No wheezes or crackles appreciated. Abdomen soft bowel sounds are heard. No masses or tenderness. Extremities are intact. No cyanosis clubbing or edema. Skin is without rash or lesion. Neurologic examination is brief but nonfocal. Results - Laboratory Findings CBC and BMP: 12/14/17 04:05 12/14/17 04:05 ABG ABG pH 7.40 (7.35-7.45) 12/13/17 23:46 ABG pCO2 39 mmHg (35-45) 12/13/17 23:46 ABG pO2 60 mmHg (83-108) L 12/13/17 23:46 ABG O2 Saturation 92.7 % (94-97) L 12/13/17 23:46 PT/INR, D-dimer PT 11.2 sec (9.0-12.0) 12/14/17 04:15 INR 1.2 (<1.2) H 12/14/17 04:15 Abnormal lab findings: Abnormal Labs 12/09/17 12/09/17 12/09/17 03:03 03:20 03:20 WBC 12.7 H RBC Hgb Hct Neutrophils # 8.8 H Lymphocytes # INR APTT ABG pH ABG pCO2 ABG pO2 ABG HCO3 ABG Total CO2 ABG O2 Saturation ABG Hematocrit ABG Sodium ABG Potassium ABG Ionized Calcium ABG Glucose Hemoglobin Sodium Chloride Glucose POC Glucose (mg/dL) 264 H Hemoglobin A1c Magnesium AST Total Creatine Kinase 2639 H CK-MB (CK-2) 128.0 H* Troponin I 52.100 H* Total Protein Albumin Triglycerides HDL Cholesterol Arterial Blood Potassium Arterial Blood Glucose Urine Glucose (UA) Urine Mucus Crossmatch 12/09/17 12/09/17 12/09/17 03:20 03:20 03:20 WBC RBC Hgb Hct Neutrophils # Lymphocytes # INR 1.2 H APTT 50.4 H ABG pH ABG pCO2 ABG pO2 ABG HCO3 ABG Total CO2 ABG O2 Saturation ABG Hematocrit ABG Sodium ABG Potassium ABG Ionized Calcium ABG Glucose Hemoglobin Sodium 136 L Chloride Glucose 257 H POC Glucose (mg/dL) Hemoglobin A1c 10.8 H Magnesium AST 242 H Total Creatine Kinase CK-MB (CK-2) Troponin I Total Protein Albumin Triglycerides HDL Cholesterol Arterial Blood Potassium Arterial Blood Glucose Urine Glucose (UA) Urine Mucus Crossmatch 12/09/17 12/09/17 12/09/17 03:20 07:54 11:56 WBC RBC Hgb Hct Neutrophils # Lymphocytes # INR APTT ABG pH ABG pCO2 ABG pO2 ABG HCO3 ABG Total CO2 ABG O2 Saturation ABG Hematocrit ABG Sodium ABG Potassium ABG Ionized Calcium ABG Glucose Hemoglobin Sodium Chloride Glucose POC Glucose (mg/dL) 248 H Hemoglobin A1c Magnesium AST Total Creatine Kinase 2720 H CK-MB (CK-2) 132.0 H* Troponin I 69.100 H* Total Protein Albumin Triglycerides 457 H HDL Cholesterol 36 L Arterial Blood Potassium Arterial Blood Glucose Urine Glucose (UA) Urine Mucus Crossmatch 12/09/17 12/09/17 12/09/17 16:46 21:26 23:10 WBC RBC Hgb Hct Neutrophils # Lymphocytes # INR APTT 32.7 H ABG pH ABG pCO2 ABG pO2 ABG HCO3 ABG Total CO2 ABG O2 Saturation ABG Hematocrit ABG Sodium ABG Potassium ABG Ionized Calcium ABG Glucose Hemoglobin Sodium Chloride Glucose POC Glucose (mg/dL) 254 H 176 H Hemoglobin A1c Magnesium AST Total Creatine Kinase CK-MB (CK-2) Troponin I Total Protein Albumin Triglycerides HDL Cholesterol Arterial Blood Potassium Arterial Blood Glucose Urine Glucose (UA) Urine Mucus Crossmatch 12/10/17 12/10/17 12/10/17 00:30 05:44 05:44 WBC 11.6 H RBC Hgb Hct Neutrophils # 7.9 H Lymphocytes # INR APTT ABG pH ABG pCO2 ABG pO2 ABG HCO3 ABG Total CO2 ABG O2 Saturation ABG Hematocrit ABG Sodium ABG Potassium ABG Ionized Calcium ABG Glucose Hemoglobin Sodium 135 L Chloride Glucose 186 H POC Glucose (mg/dL) Hemoglobin A1c Magnesium AST Total Creatine Kinase CK-MB (CK-2) Troponin I Total Protein Albumin Triglycerides HDL Cholesterol Arterial Blood Potassium Arterial Blood Glucose Urine Glucose (UA) 3+ H Urine Mucus Rare H Crossmatch 12/10/17 12/10/17 12/10/17 05:44 05:44 06:03 WBC RBC Hgb Hct Neutrophils # Lymphocytes # INR APTT 45.7 H ABG pH ABG pCO2 ABG pO2 ABG HCO3 ABG Total CO2 ABG O2 Saturation ABG Hematocrit ABG Sodium ABG Potassium ABG Ionized Calcium ABG Glucose Hemoglobin Sodium Chloride Glucose POC Glucose (mg/dL) 190 H Hemoglobin A1c Magnesium AST Total Creatine Kinase CK-MB (CK-2) Troponin I 33.100 H* Total Protein Albumin Triglycerides HDL Cholesterol Arterial Blood Potassium Arterial Blood Glucose Urine Glucose (UA) Urine Mucus Crossmatch 12/10/17 12/10/17 12/10/17 11:51 12:13 16:37 WBC RBC Hgb Hct Neutrophils # Lymphocytes # INR APTT 42.5 H ABG pH ABG pCO2 ABG pO2 ABG HCO3 ABG Total CO2 ABG O2 Saturation ABG Hematocrit ABG Sodium ABG Potassium ABG Ionized Calcium ABG Glucose Hemoglobin Sodium Chloride Glucose POC Glucose (mg/dL) 147 H 178 H Hemoglobin A1c Magnesium AST Total Creatine Kinase CK-MB (CK-2) Troponin I Total Protein Albumin Triglycerides HDL Cholesterol Arterial Blood Potassium Arterial Blood Glucose Urine Glucose (UA) Urine Mucus Crossmatch 12/10/17 12/10/17 12/11/17 20:31 22:50 05:37 WBC 10.8 H RBC Hgb Hct Neutrophils # Lymphocytes # INR APTT 43.3 H ABG pH ABG pCO2 ABG pO2 ABG HCO3 ABG Total CO2 ABG O2 Saturation ABG Hematocrit ABG Sodium ABG Potassium ABG Ionized Calcium ABG Glucose Hemoglobin Sodium Chloride Glucose POC Glucose (mg/dL) 245 H Hemoglobin A1c Magnesium AST Total Creatine Kinase CK-MB (CK-2) Troponin I Total Protein Albumin Triglycerides HDL Cholesterol Arterial Blood Potassium Arterial Blood Glucose Urine Glucose (UA) Urine Mucus Crossmatch 12/11/17 12/11/17 12/11/17 05:37 05:37 06:27 WBC RBC Hgb Hct Neutrophils # Lymphocytes # INR APTT 56.4 H ABG pH ABG pCO2 ABG pO2 ABG HCO3 ABG Total CO2 ABG O2 Saturation ABG Hematocrit ABG Sodium ABG Potassium ABG Ionized Calcium ABG Glucose Hemoglobin Sodium Chloride Glucose 144 H POC Glucose (mg/dL) 169 H Hemoglobin A1c Magnesium AST Total Creatine Kinase CK-MB (CK-2) Troponin I Total Protein Albumin Triglycerides HDL Cholesterol Arterial Blood Potassium Arterial Blood Glucose Urine Glucose (UA) Urine Mucus Crossmatch 12/11/17 12/11/17 12/11/17 11:38 16:26 20:57 WBC RBC Hgb Hct Neutrophils # Lymphocytes # INR APTT ABG pH ABG pCO2 ABG pO2 ABG HCO3 ABG Total CO2 ABG O2 Saturation ABG Hematocrit ABG Sodium ABG Potassium ABG Ionized Calcium ABG Glucose Hemoglobin Sodium Chloride Glucose POC Glucose (mg/dL) 190 H 198 H 226 H Hemoglobin A1c Magnesium AST Total Creatine Kinase CK-MB (CK-2) Troponin I Total Protein Albumin Triglycerides HDL Cholesterol Arterial Blood Potassium Arterial Blood Glucose Urine Glucose (UA) Urine Mucus Crossmatch 12/12/17 12/12/17 12/12/17 05:44 05:44 05:44 WBC RBC Hgb Hct 38.9 L Neutrophils # Lymphocytes # INR APTT 47.8 H ABG pH ABG pCO2 ABG pO2 ABG HCO3 ABG Total CO2 ABG O2 Saturation ABG Hematocrit ABG Sodium ABG Potassium ABG Ionized Calcium ABG Glucose Hemoglobin Sodium Chloride Glucose POC Glucose (mg/dL) Hemoglobin A1c Magnesium AST Total Creatine Kinase CK-MB (CK-2) Troponin I Total Protein Albumin Triglycerides HDL Cholesterol Arterial Blood Potassium Arterial Blood Glucose Urine Glucose (UA) Urine Mucus Crossmatch See Detail 12/12/17 12/12/17 12/12/17 05:44 06:04 11:41 WBC RBC Hgb Hct Neutrophils # Lymphocytes # INR APTT ABG pH ABG pCO2 ABG pO2 ABG HCO3 ABG Total CO2 ABG O2 Saturation ABG Hematocrit ABG Sodium ABG Potassium ABG Ionized Calcium ABG Glucose Hemoglobin Sodium Chloride Glucose 163 H POC Glucose (mg/dL) 180 H 177 H Hemoglobin A1c Magnesium AST Total Creatine Kinase CK-MB (CK-2) Troponin I Total Protein 6.0 L Albumin Triglycerides HDL Cholesterol Arterial Blood Potassium Arterial Blood Glucose Urine Glucose (UA) Urine Mucus Crossmatch 12/12/17 12/12/17 12/13/17 16:20 21:06 04:55 WBC RBC Hgb Hct 37.8 L Neutrophils # Lymphocytes # INR APTT ABG pH ABG pCO2 ABG pO2 ABG HCO3 ABG Total CO2 ABG O2 Saturation ABG Hematocrit ABG Sodium ABG Potassium ABG Ionized Calcium ABG Glucose Hemoglobin Sodium Chloride Glucose POC Glucose (mg/dL) 144 H 175 H Hemoglobin A1c Magnesium AST Total Creatine Kinase CK-MB (CK-2) Troponin I Total Protein Albumin Triglycerides HDL Cholesterol Arterial Blood Potassium Arterial Blood Glucose Urine Glucose (UA) Urine Mucus Crossmatch 12/13/17 12/13/17 12/13/17 04:55 08:49 10:44 WBC RBC Hgb Hct Neutrophils # Lymphocytes # INR APTT 30.1 H ABG pH 7.30 L ABG pCO2 47 H ABG pO2 271 H 187 H ABG HCO3 ABG Total CO2 25 H ABG O2 Saturation 100.0 H 99.5 H ABG Hematocrit ABG Sodium ABG Potassium 4.9 H ABG Ionized Calcium ABG Glucose 141 H 182 H Hemoglobin 12.9 L 12.2 L Sodium Chloride Glucose POC Glucose (mg/dL) Hemoglobin A1c Magnesium AST Total Creatine Kinase CK-MB (CK-2) Troponin I Total Protein Albumin Triglycerides HDL Cholesterol Arterial Blood Potassium 4.9 H Arterial Blood Glucose 141 H 182 H Urine Glucose (UA) Urine Mucus Crossmatch 12/13/17 12/13/17 12/13/17 11:34 12:12 12:34 WBC RBC Hgb Hct Neutrophils # Lymphocytes # INR APTT ABG pH 7.33 L ABG pCO2 ABG pO2 228 H 216 H 144 H ABG HCO3 26 H ABG Total CO2 27 H 25 H 25 H ABG O2 Saturation 99.8 H 99.8 H 99.2 H ABG Hematocrit 29 L 32 L 30 L ABG Sodium 134 L 132 L 132 L ABG Potassium 4.9 H 6.8 H* 6.7 H* ABG Ionized Calcium 4.0 L 4.2 L 4.2 L ABG Glucose 164 H 268 H 252 H Hemoglobin 9.5 L 10.3 L 9.7 L Sodium Chloride Glucose POC Glucose (mg/dL) Hemoglobin A1c Magnesium AST Total Creatine Kinase CK-MB (CK-2) Troponin I Total Protein Albumin Triglycerides HDL Cholesterol Arterial Blood Potassium 4.9 H 6.8 H* 6.7 H* Arterial Blood Glucose 164 H 268 H 252 H Urine Glucose (UA) Urine Mucus Crossmatch 12/13/17 12/13/17 12/13/17 15:00 15:00 15:01 WBC RBC 3.91 L Hgb 11.2 L Hct 32.2 L Neutrophils # Lymphocytes # INR APTT ABG pH ABG pCO2 ABG pO2 ABG HCO3 ABG Total CO2 ABG O2 Saturation ABG Hematocrit ABG Sodium ABG Potassium ABG Ionized Calcium ABG Glucose Hemoglobin Sodium Chloride 108 H Glucose POC Glucose (mg/dL) 101 H Hemoglobin A1c Magnesium 2.6 H AST Total Creatine Kinase CK-MB (CK-2) Troponin I Total Protein 5.3 L Albumin 3.1 L Triglycerides HDL Cholesterol Arterial Blood Potassium Arterial Blood Glucose Urine Glucose (UA) Urine Mucus Crossmatch 12/13/17 12/13/17 12/13/17 15:15 17:15 17:37 WBC RBC Hgb Hct Neutrophils # Lymphocytes # INR APTT ABG pH 7.26 L ABG pCO2 62 H ABG pO2 280 H ABG HCO3 28 H ABG Total CO2 30 H ABG O2 Saturation 99.7 H ABG Hematocrit ABG Sodium ABG Potassium ABG Ionized Calcium ABG Glucose Hemoglobin Sodium Chloride Glucose POC Glucose (mg/dL) 117 H 116 H Hemoglobin A1c Magnesium AST Total Creatine Kinase CK-MB (CK-2) Troponin I Total Protein Albumin Triglycerides HDL Cholesterol Arterial Blood Potassium Arterial Blood Glucose Urine Glucose (UA) Urine Mucus Crossmatch 12/13/17 12/13/17 12/13/17 17:39 18:00 18:13 WBC RBC 3.93 L Hgb 11.0 L Hct 32.8 L Neutrophils # 7.9 H Lymphocytes # 0.5 L INR APTT ABG pH 7.22 L ABG pCO2 66 H ABG pO2 ABG HCO3 27 H ABG Total CO2 29 H ABG O2 Saturation ABG Hematocrit ABG Sodium ABG Potassium ABG Ionized Calcium ABG Glucose Hemoglobin Sodium Chloride Glucose POC Glucose (mg/dL) 128 H Hemoglobin A1c Magnesium AST Total Creatine Kinase CK-MB (CK-2) Troponin I Total Protein Albumin Triglycerides HDL Cholesterol Arterial Blood Potassium Arterial Blood Glucose Urine Glucose (UA) Urine Mucus Crossmatch 12/13/17 12/13/17 12/13/17 18:35 19:36 19:59 WBC RBC Hgb Hct Neutrophils # Lymphocytes # INR APTT ABG pH 7.27 L ABG pCO2 56 H ABG pO2 81 L ABG HCO3 26 H ABG Total CO2 28 H 26 H ABG O2 Saturation ABG Hematocrit ABG Sodium ABG Potassium ABG Ionized Calcium ABG Glucose Hemoglobin Sodium Chloride Glucose POC Glucose (mg/dL) 154 H Hemoglobin A1c Magnesium AST Total Creatine Kinase CK-MB (CK-2) Troponin I Total Protein Albumin Triglycerides HDL Cholesterol Arterial Blood Potassium Arterial Blood Glucose Urine Glucose (UA) Urine Mucus Crossmatch 12/13/17 12/13/17 12/13/17 20:57 21:00 21:53 WBC RBC 3.69 L Hgb 10.4 L Hct 30.3 L Neutrophils # Lymphocytes # 0.4 L INR APTT ABG pH ABG pCO2 ABG pO2 ABG HCO3 ABG Total CO2 ABG O2 Saturation ABG Hematocrit ABG Sodium ABG Potassium ABG Ionized Calcium ABG Glucose Hemoglobin Sodium Chloride Glucose POC Glucose (mg/dL) 154 H 128 H Hemoglobin A1c Magnesium AST Total Creatine Kinase CK-MB (CK-2) Troponin I Total Protein Albumin Triglycerides HDL Cholesterol Arterial Blood Potassium Arterial Blood Glucose Urine Glucose (UA) Urine Mucus Crossmatch 12/13/17 12/13/17 12/14/17 22:53 23:46 00:01 WBC RBC Hgb Hct Neutrophils # Lymphocytes # INR APTT ABG pH ABG pCO2 ABG pO2 60 L ABG HCO3 ABG Total CO2 26 H ABG O2 Saturation 92.7 L ABG Hematocrit ABG Sodium ABG Potassium ABG Ionized Calcium ABG Glucose Hemoglobin Sodium Chloride Glucose POC Glucose (mg/dL) 106 H 117 H Hemoglobin A1c Magnesium AST Total Creatine Kinase CK-MB (CK-2) Troponin I Total Protein Albumin Triglycerides HDL Cholesterol Arterial Blood Potassium Arterial Blood Glucose Urine Glucose (UA) Urine Mucus Crossmatch 12/14/17 12/14/17 12/14/17 00:59 02:05 03:00 WBC RBC Hgb Hct Neutrophils # Lymphocytes # INR APTT ABG pH ABG pCO2 ABG pO2 ABG HCO3 ABG Total CO2 ABG O2 Saturation ABG Hematocrit ABG Sodium ABG Potassium ABG Ionized Calcium ABG Glucose Hemoglobin Sodium Chloride Glucose POC Glucose (mg/dL) 123 H 123 H 123 H Hemoglobin A1c Magnesium AST Total Creatine Kinase CK-MB (CK-2) Troponin I Total Protein Albumin Triglycerides HDL Cholesterol Arterial Blood Potassium Arterial Blood Glucose Urine Glucose (UA) Urine Mucus Crossmatch 12/14/17 12/14/17 12/14/17 03:59 04:05 04:05 WBC RBC 3.67 L Hgb 10.2 L Hct 30.0 L Neutrophils # Lymphocytes # INR APTT ABG pH ABG pCO2 ABG pO2 ABG HCO3 ABG Total CO2 ABG O2 Saturation ABG Hematocrit ABG Sodium ABG Potassium ABG Ionized Calcium ABG Glucose Hemoglobin Sodium Chloride Glucose 107 H POC Glucose (mg/dL) 121 H Hemoglobin A1c Magnesium AST Total Creatine Kinase CK-MB (CK-2) Troponin I Total Protein 5.5 L Albumin Triglycerides HDL Cholesterol Arterial Blood Potassium Arterial Blood Glucose Urine Glucose (UA) Urine Mucus Crossmatch 12/14/17 12/14/17 12/14/17 04:15 05:03 05:56 WBC RBC Hgb Hct Neutrophils # Lymphocytes # INR 1.2 H APTT ABG pH ABG pCO2 ABG pO2 ABG HCO3 ABG Total CO2 ABG O2 Saturation ABG Hematocrit ABG Sodium ABG Potassium ABG Ionized Calcium ABG Glucose Hemoglobin Sodium Chloride Glucose POC Glucose (mg/dL) 124 H 115 H Hemoglobin A1c Magnesium AST Total Creatine Kinase CK-MB (CK-2) Troponin I Total Protein Albumin Triglycerides HDL Cholesterol Arterial Blood Potassium Arterial Blood Glucose Urine Glucose (UA) Urine Mucus Crossmatch 12/14/17 12/14/17 07:03 08:14 WBC RBC Hgb Hct Neutrophils # Lymphocytes # INR APTT ABG pH ABG pCO2 ABG pO2 ABG HCO3 ABG Total CO2 ABG O2 Saturation ABG Hematocrit ABG Sodium ABG Potassium ABG Ionized Calcium ABG Glucose Hemoglobin Sodium Chloride Glucose POC Glucose (mg/dL) 128 H 132 H Hemoglobin A1c Magnesium AST Total Creatine Kinase CK-MB (CK-2) Troponin I Total Protein Albumin Triglycerides HDL Cholesterol Arterial Blood Potassium Arterial Blood Glucose Urine Glucose (UA) Urine Mucus Crossmatch - Diagnostic Findings Chest x-ray: report reviewed, image reviewed (Chest x-ray labs and medications are reviewed.) Assessment and Plan Assessment: Assessment Postop day #1, status post three-vessel bypass grafting Postoperative respiratory failure, resolved History of coronary artery disease History of hypertension History of hyperlipidemia History of diabetes History of CVA Mild COPD secondary to chronic tobacco use Right pneumothorax Plan: Plan dated 12/14/2017 The patient's doing well. The patient will be seen by the thoracic surgeon for possible insertion of a full Atrovent. The patient's respiratory status is stable. Chest x-rays reviewed. There is a significant right-sided pneumothorax. The patient will continue on incentive spirometry. The patient will continue on bronchodilators. The patient will continue coughing and clearing of secretions. Additional recommendations and suggestions are forthcoming. Time with Patient: Greater than 30
[2017-12-14] MEDS: ASPIRIN 325 MG TAB PO SCH (09:13)
[2017-12-14] MEDS ORDERED: FUROSEMIDE 10 MG/ML 2 ML VIAL IV STA (09:48)
[2017-12-14 10:01] LABS: Glucose,Whole Blood 134 mg/dL (75-99)
--- NOTE | 2017-12-14 10:15 | XR ---
EXAMINATION TYPE: XR chest 1V portable DATE OF EXAM: 12/14/2017 COMPARISON: 12/14/2017 HISTORY: Follow-up for pneumothorax. Post cardiac surgery. TECHNIQUE: Single frontal view of the chest is obtained. FINDINGS: There is unchanged placement of the right internal jugular Houston-Lilia catheter, left-sided thoracostomy tube, and mediastinal drain. Post CABG changes are seen of the chest. There is a new rig ht pneumostat/small caliber pleural catheter with no residual pneumothorax seen. No mediastinal shift . Cardiomegaly remains. Osseous structures are grossly intact, IMPRESSION: Bilateral thoracostomy tubes with no residual pneumothoraces and stable postoperative ch anges the chest.
[2017-12-14] MEDS: KETOROLAC 30 MG/ML 1 ML VIAL IVP SCH ×4 (10:30→23:08)
--- NOTE | 2017-12-14 10:44 | P.VSCSTY ---
Greater Saphenous Vein Mapping This is bilateral lower extremity greater saphenous vein mapping. Date of service 12/09/2017 Vein quality and ultrasound appearance no intraluminal thrombus or wall changes are seen. Vein size groin right 7.7 x 7.1 groin left 8.8 x 7.7 High thigh right 4.6 x 5.7 high thigh left 4.2 x 5.8 Mid thigh right 4.2 x 5.1 mid thigh left 4.5 x 5.3 Above-knee right 3.6 x 4.7 above- knee left 4.4 x 5.4 Below knee right 3.6 x 4.6 below-knee left 2.8 x 4.1 Mid calf right 3.5 x 4.7 mid calf left 3.2 x 4.9 Ankle right 3.4 x 5.3 ankle left 3.3 x 4.5 Impression usable bilateral greater saphenous vein.
--- NOTE | 2017-12-14 10:47 | P.ARTDOP ---
Arterial Doppler Radial artery testing: Reason for testing: Pre-CABG Date of service: 12/09/17 Note: Only the left is used's as there is a catheter in the right forearm There are no segmental gradients noted. With radial artery compression there are no significant changes in pressure on digital plethysmography. On imaging the radial ranges from 3.1 x 3.2-3.3 x 2.3 mm. Impression: Usable left radial artery.
--- NOTE | 2017-12-14 11:31 | XR ---
EXAMINATION TYPE: XR chest 1V portable DATE OF EXAM: 12/14/2017 HISTORY: Shortness of breath. COMPARISON: None. TECHNIQUE: Single view of the chest is submitted. FINDINGS: Moderate right-sided pneumothorax which is new.. Left-sided chest tube is in place. Gilbert-Lilia cathete r noted. Demonstrated are scattered senescent parenchymal change. There is no evidence for focal infiltrate. The heart is stable. Hilar and mediastinal structures are within normal limits. Degenerative changes are seen of the dorsal spine. IMPRESSION: 1. Moderate right-sided pneumothorax.
[2017-12-14] MEDS: LACTATED RINGERS 1,000 ML IV SCH (12:29)
[2017-12-14 13:53] LABS: Glucose,Whole Blood 201 mg/dL (75-99)
[2017-12-14] MEDS ORDERED: HYDROcodone/APAP 5-325MG 1 EACH TAB PO PRN (14:21)
[2017-12-14] MEDS ORDERED: BISACODYL 10 MG SUPP RECTAL PRN (14:22)
[2017-12-14] MEDS ORDERED: MAGNESIUM HYDROXIDE 2,400 MG/10 ML CUP PO PRN (14:22)
[2017-12-14 15:04] LABS: Glucose,Whole Blood 217 mg/dL (75-99)
[2017-12-14] MEDS: HYDROcodone/APAP 5-325MG 1 EACH TAB PO PRN (16:01)
[2017-12-14 16:02] LABS: Glucose,Whole Blood 168 mg/dL (75-99)
[2017-12-14 17:17] LABS: Glucose,Whole Blood 139 mg/dL (75-99)
--- NOTE | 2017-12-14 17:47 | P.PN ---
Subjective Progress Note Date: 12/14/17 Progress note being dictated for Interval history:Patient is admitted for rest elevation microinfarction found to have severe two-vessel disease in RCA and left circumflex with the significant collaterals to the left coronary system. Patient will undergo coronary artery bypass grafting patient's ejection fraction is that is that 5% patient is not in heart failure exacerbation. 12/11/2017 No overnight events 12/12/2017 No chest pain Constitutional: Denied any fatigue denied any fever. Cardio vascular: denied any chest pain, palpitations Gastrointestinal denied any nausea vomiting Pulmonary: Denied any shortness of breath cough Neurologic denied any new focal deficits 12/14/2017 CABG postop day #1 . extubated around midnight. chest x-ray reporting right-sided pneumothorax. Right-sided thoravent placed. Chest x-ray post thoravent reporting bilateral thoracostomy tubes with no residual pneumothorax. Currently on 12 L high flow nasal cannula maintaining O2 sats of 91%. Denies lightheadedness dizziness or focal deficits. Incentive spirometer up to 1000. Denies chest pain, palpitations, or increasing shortness of breath. Pain controlled. Telemetry sinus rhythm. Objective - Vital Signs Vital signs: Vital Signs Temp 99 F 12/14/17 12:00 Pulse 88 12/14/17 15:43 Resp 22 12/14/17 14:00 BP 113/52 12/14/17 14:00 Pulse Ox 94 L 12/14/17 14:00 Intake & Output 12/13/17 12/14/17 12/14/17 18:59 06:59 18:59 Intake Total 832.066 3500.881 623.547 Output Total 2068 1406 482 Balance -1601.234 441.881 141.547 Weight 90.8 kg 90.8 kg Intake: IV 400 1808 480 ACETAMINOPHEN IV (For NPO 200 ) 1,000 mg In Empty Bag 1 bag @ 400 mls/hr IVPB Q6HR [facility] Rx#:[id number] Albumin 250 Albumin Human 5% 250 ml 500 In Empty Bag 1 bag @ 250 mls/hr IVPB Q1HR PRN Rx#: [id number] CI/CO 280 20 Lactated Ringers 150 600 300 Magnesium Sulfate-D5w Pmx 100 100 1 gm In Dextrose/Water 1 100ml.bag @ 100 mls/hr IVPB Q1H [facility] Rx#: [id number] ceFAZolin 2 gm In Sodium 20 Chloride 0.9% 30 ml @ 60 mls/hr IVPB ONCE ONE Rx#: [id number] pressure bag 108 57 Intake, IV Titration 66.766 39.881 23.547 Amount Clevidipine Butyrate 25 51.067 mg In Empty Bag 1 bag @ 1 MG/HR 2 mls/hr IV .Q24H [facility] Rx#:[id number] Dexmedetomidine/0.9% NaCl 15.699 10.15 (Pmx) 400 mcg In Empty Bag 1 bag @ Titrate IV . Q0M [facility] Rx#:[id number] Insulin Regular 100 unit 7.209 23.547 In Sodium Chloride 0.9% 100 ml @ Per Protocol IV .Q0M [facility] Rx#:[id number] Propofol 1,000 mg In 22.522 Empty Bag 1 bag @ Titrate IV .Q0M [facility] Rx#: [id number] Oral 120 Output: Chest Tube Drainage 421 122 Left pleural 116 37 Mediastinal 305 85 R Thora-vent 0 Gastric Drainage 160 Drainage 203 210 Left Arm 60 Left Chest 13 0 Left Lower Calf 60 Medial Chest 190 90 Urine 665 615 360 Estimated Blood Loss 1200 Other: Voiding Method Indwelling Catheter Indwelling Catheter Indwelling Catheter # Voids 1 ABP, PAP, CO, CI - Last Documented Arterial Blood Pressure 110/51 Pulmonary Artery Pressure 45/23 Cardiac Output 7.2 Cardiac Index 4.4 - Exam PHYSICAL EXAM: VITAL SIGNS: As above GENERAL: Sitting up in bed, no acute distress, extubated wearing nasal cannula, conversing without shortness of breath HEENT: Conjunctivae normal. eyes normal. No conjunctival pallor. Oral mucosa moist. NECK: No JVD. Cordis present. No thyroid enlargement. CARDIOVASCULAR: S1, S2 muffled. No murmur, wearing heart hugger RESPIRATION: Breath sounds essentially clear, diminished in the bases. Occasional scattered rhonchi or crackles. Right thora-vent, Mediastinal and left pleural chest tubes with serosanguineous drainage. ABDOMEN: Soft, nontender . No guarding. no masses palpable. Hypoactive Bowel sounds heard. EXTREMITIES: No edema. no swelling . DOUGIE at [place] site with minimal serosanguineous drainage PSYCHIATRY: Alert and oriented -3, mood and affect normal. NERVOUS SYSTEM: Cranial N 2-12 grossly normal. Moves all 4 limbs. Diffuse weakness No focal deficits. Skin: no ulcer no rash Joints: No active swelling. No inflammation. - Labs CBC & Chem 7: 12/14/17 04:05 12/14/17 04:05 Labs: Abnormal Lab Results - Last 24 Hours (Table) 12/12/17 12/13/17 12/13/17 Range/Units 05:44 17:15 17:37 RBC (4.30-5.90) m/uL Hgb (13.0-17.5) gm/dL Hct (39.0-53.0) % Neutrophils # (1.3-7.7) k/uL Lymphocytes # (1.0-4.8) k/uL INR (<1.2) ABG pH (7.35-7.45) ABG pCO2 (35-45) mmHg ABG pO2 (83-108) mmHg ABG HCO3 (21-25) mmol/L ABG Total CO2 (19-24) mmol/L ABG O2 Saturation (94-97) % Glucose (74-99) mg/dL POC Glucose (mg/dL) 117 H 116 H (75-99) mg/dL Total Protein (6.3-8.2) g/dL Crossmatch See Detail 12/13/17 12/13/17 12/13/17 Range/Units 17:39 18:00 18:13 RBC 3.93 L (4.30-5.90) m/uL Hgb 11.0 L (13.0-17.5) gm/dL Hct 32.8 L (39.0-53.0) % Neutrophils # 7.9 H (1.3-7.7) k/uL Lymphocytes # 0.5 L (1.0-4.8) k/uL INR (<1.2) ABG pH 7.22 L (7.35-7.45) ABG pCO2 66 H (35-45) mmHg ABG pO2 (83-108) mmHg ABG HCO3 27 H (21-25) mmol/L ABG Total CO2 29 H (19-24) mmol/L ABG O2 Saturation (94-97) % Glucose (74-99) mg/dL POC Glucose (mg/dL) 128 H (75-99) mg/dL Total Protein (6.3-8.2) g/dL Crossmatch 12/13/17 12/13/17 12/13/17 Range/Units 18:35 19:36 19:59 RBC (4.30-5.90) m/uL Hgb (13.0-17.5) gm/dL Hct (39.0-53.0) % Neutrophils # (1.3-7.7) k/uL Lymphocytes # (1.0-4.8) k/uL INR (<1.2) ABG pH 7.27 L (7.35-7.45) ABG pCO2 56 H (35-45) mmHg ABG pO2 81 L (83-108) mmHg ABG HCO3 26 H (21-25) mmol/L ABG Total CO2 28 H 26 H (19-24) mmol/L ABG O2 Saturation (94-97) % Glucose (74-99) mg/dL POC Glucose (mg/dL) 154 H (75-99) mg/dL Total Protein (6.3-8.2) g/dL Crossmatch 12/13/17 12/13/17 12/13/17 Range/Units 20:57 21:00 21:53 RBC 3.69 L (4.30-5.90) m/uL Hgb 10.4 L (13.0-17.5) gm/dL Hct 30.3 L (39.0-53.0) % Neutrophils # (1.3-7.7) k/uL Lymphocytes # 0.4 L (1.0-4.8) k/uL INR (<1.2) ABG pH (7.35-7.45) ABG pCO2 (35-45) mmHg ABG pO2 (83-108) mmHg ABG HCO3 (21-25) mmol/L ABG Total CO2 (19-24) mmol/L ABG O2 Saturation (94-97) % Glucose (74-99) mg/dL POC Glucose (mg/dL) 154 H 128 H (75-99) mg/dL Total Protein (6.3-8.2) g/dL Crossmatch 12/13/17 12/13/17 12/14/17 Range/Units 22:53 23:46 00:01 RBC (4.30-5.90) m/uL Hgb (13.0-17.5) gm/dL Hct (39.0-53.0) % Neutrophils # (1.3-7.7) k/uL Lymphocytes # (1.0-4.8) k/uL INR (<1.2) ABG pH (7.35-7.45) ABG pCO2 (35-45) mmHg ABG pO2 60 L (83-108) mmHg ABG HCO3 (21-25) mmol/L ABG Total CO2 26 H (19-24) mmol/L ABG O2 Saturation 92.7 L (94-97) % Glucose (74-99) mg/dL POC Glucose (mg/dL) 106 H 117 H (75-99) mg/dL Total Protein (6.3-8.2) g/dL Crossmatch 12/14/17 12/14/17 12/14/17 Range/Units 00:59 02:05 03:00 RBC (4.30-5.90) m/uL Hgb (13.0-17.5) gm/dL Hct (39.0-53.0) % Neutrophils # (1.3-7.7) k/uL Lymphocytes # (1.0-4.8) k/uL INR (<1.2) ABG pH (7.35-7.45) ABG pCO2 (35-45) mmHg ABG pO2 (83-108) mmHg ABG HCO3 (21-25) mmol/L ABG Total CO2 (19-24) mmol/L ABG O2 Saturation (94-97) % Glucose (74-99) mg/dL POC Glucose (mg/dL) 123 H 123 H 123 H (75-99) mg/dL Total Protein (6.3-8.2) g/dL Crossmatch 12/14/17 12/14/17 12/14/17 Range/Units 03:59 04:05 04:05 RBC 3.67 L (4.30-5.90) m/uL Hgb 10.2 L (13.0-17.5) gm/dL Hct 30.0 L (39.0-53.0) % Neutrophils # (1.3-7.7) k/uL Lymphocytes # (1.0-4.8) k/uL INR (<1.2) ABG pH (7.35-7.45) ABG pCO2 (35-45) mmHg ABG pO2 (83-108) mmHg ABG HCO3 (21-25) mmol/L ABG Total CO2 (19-24) mmol/L ABG O2 Saturation (94-97) % Glucose 107 H (74-99) mg/dL POC Glucose (mg/dL) 121 H (75-99) mg/dL Total Protein 5.5 L (6.3-8.2) g/dL Crossmatch 12/14/17 12/14/17 12/14/17 Range/Units 04:15 05:03 05:56 RBC (4.30-5.90) m/uL Hgb (13.0-17.5) gm/dL Hct (39.0-53.0) % Neutrophils # (1.3-7.7) k/uL Lymphocytes # (1.0-4.8) k/uL INR 1.2 H (<1.2) ABG pH (7.35-7.45) ABG pCO2 (35-45) mmHg ABG pO2 (83-108) mmHg ABG HCO3 (21-25) mmol/L ABG Total CO2 (19-24) mmol/L ABG O2 Saturation (94-97) % Glucose (74-99) mg/dL POC Glucose (mg/dL) 124 H 115 H (75-99) mg/dL Total Protein (6.3-8.2) g/dL Crossmatch 12/14/17 12/14/17 12/14/17 Range/Units 07:03 08:14 10:00 RBC (4.30-5.90) m/uL Hgb (13.0-17.5) gm/dL Hct (39.0-53.0) % Neutrophils # (1.3-7.7) k/uL Lymphocytes # (1.0-4.8) k/uL INR (<1.2) ABG pH (7.35-7.45) ABG pCO2 (35-45) mmHg ABG pO2 (83-108) mmHg ABG HCO3 (21-25) mmol/L ABG Total CO2 (19-24) mmol/L ABG O2 Saturation (94-97) % Glucose (74-99) mg/dL POC Glucose (mg/dL) 128 H 132 H 134 H (75-99) mg/dL Total Protein (6.3-8.2) g/dL Crossmatch 12/14/17 12/14/17 12/14/17 Range/Units 13:52 15:03 16:00 RBC (4.30-5.90) m/uL Hgb (13.0-17.5) gm/dL Hct (39.0-53.0) % Neutrophils # (1.3-7.7) k/uL Lymphocytes # (1.0-4.8) k/uL INR (<1.2) ABG pH (7.35-7.45) ABG pCO2 (35-45) mmHg ABG pO2 (83-108) mmHg ABG HCO3 (21-25) mmol/L ABG Total CO2 (19-24) mmol/L ABG O2 Saturation (94-97) % Glucose (74-99) mg/dL POC Glucose (mg/dL) 201 H 217 H 168 H (75-99) mg/dL Total Protein (6.3-8.2) g/dL Crossmatch Assessment and Plan Assessment: ST elevation myocardial infarction with three-vessel disease, status post CABG. -Right-sided pneumothorax,s/p placement of right-sided thoravent. -Acute hypoxic respiratory failure secondary to the above -Acute systolic dysfunction without any pulmonary edema or volume overload. -Type 2 diabetes mellitus noncompliant with diet at home -COPD without any acute exacerbation -Nicotine abuse: Patient is willing to quit smoking from now on. -Hypertension. Plan: Continue current medication regime ,monitoring and symptomatic treatment. Continue on beta suzie, aspirin, statin. GI and DVT prophylaxis in place. Maintain nebulized bronchodilators .Aggressive pulmonary toileting with incentive spirometer reinforced. Close monitoring of Accu-Cheks with possibly transitioning from insulin drip later today. PT/OT .Further recommendations to follow. The impression and plan of care has been dictated as directed. : I performed a history and examination of this patient, discussed the same with the dictator. I agree with the dictator's note ,documented as a scribe. Any additional findings or plans will be noted.
[2017-12-14 18:24] LABS: Glucose,Whole Blood 192 mg/dL (75-99)
[2017-12-14 19:00] LABS: Glucose,Whole Blood 190 mg/dL (75-99)
[2017-12-14 20:11] LABS: Glucose,Whole Blood 168 mg/dL (75-99)
[2017-12-14] MEDS: SENNOSIDES-DOCUSATE SODIUM 1 EACH TAB PO SCH (21:02)
[2017-12-14 23:03] LABS: Glucose,Whole Blood 166 mg/dL (75-99)
[2017-12-15 01:07] LABS: Glucose,Whole Blood 136 mg/dL (75-99)
[2017-12-15 03:09] LABS: Glucose,Whole Blood 113 mg/dL (75-99)
[2017-12-15 04:02] LABS: Glucose,Whole Blood 115 mg/dL (75-99)
[2017-12-15 04:21] LABS: Ionized Calcium 4.9 mg/dL (4.5-5.3)
[2017-12-15 04:25] LABS: Basophils % (A) 0 %; Eosinophils # (A) 0.2 k/uL (0-0.7); Eosinophils % (A) 2 %; HCT 25.6 % (39.0-53.0); Lymphocytes # (A) 1.3 k/uL (1.0-4.8); Lymphocytes % (A) 14 %; MCH 27.6 pg (25.0-35.0); MCHC 33.9 g/dL (31.0-37.0); MCV 81.4 fL (80.0-100.0); Mean Platelet Volume 7.3; Monocytes # (A) 0.6 k/uL (0-1.0); Monocytes % (A) 6 %; Neutrophils # (A) 7.1 k/uL (1.3-7.7); Neutrophils % (A) 75 %; Platelet Count 207 k/uL (150-450); RBC 3.15 m/uL (4.30-5.90); RDW 13.3 % (11.5-15.5); WBC 9.5 k/uL (3.8-10.6)
[2017-12-15 04:29] LABS: ALT 34 U/L (21-72); AST 30 U/L (17-59); Albumin 3.1 g/dL (3.5-5.0); Alkaline Phosphatase 38 U/L (38-126); Anion Gap 7 mmol/L; Blood Urea Nitrogen 18 mg/dL (9-20); Calcium 8.5 mg/dL (8.4-10.2); Carbon Dioxide 24 mmol/L (22-30); Chloride 103 mmol/L (98-107); Glucose 101 mg/dL (74-99); Magnesium 2.4 mg/dL (1.6-2.3); Potassium 3.7 mmol/L (3.5-5.1); Sodium 134 mmol/L (137-145); Total Bilirubin 0.6 mg/dL (0.2-1.3)
[2017-12-15 04:30] LABS: HGB 8.7 gm/dL (13.0-17.5)
[2017-12-15 04:49] LABS: Glucose,Whole Blood 116 mg/dL (75-99)
[2017-12-15] MEDS ORDERED: Potassium Replacement Protocol 1 EACH MISC MISCELLANE PRN (04:53)
[2017-12-15] MEDS ORDERED: POTASSIUM CHLORIDE ER 20 MEQ TAB.ER PO SCH (05:00)
[2017-12-15 05:54] LABS: Glucose,Whole Blood 111 mg/dL (75-99)
[2017-12-15] MEDS: KETOROLAC 30 MG/ML 1 ML VIAL IVP SCH ×3 (06:30→17:31)
[2017-12-15 07:01] LABS: Glucose,Whole Blood 110 mg/dL (75-99)
[2017-12-15] MEDS: IPRATROPIUM-ALBUTEROL 3 ML NEB INHALATION SCH ×4 (07:38→19:11)
--- NOTE | 2017-12-15 08:00 | PN ---
PROGRESS NOTE Mr. Li is a 57-year-old male who underwent coronary artery bypass grafting. He underwent placement of a chest tube because of his pneumothorax. He is feeling well this morning. His breathing is stable. He is denying any symptoms of chest pain. He denies any dizziness or palpitation. He denies any nausea. He continued to be in sinus mechanism with stable blood pressure. He continues to be on aspirin once a day, Lipitor 40 mg daily, Plavix 75 mg daily, metoprolol tartrate 12.5 mg twice a day. PHYSICAL EXAMINATION: Blood pressure 114/50 with the heart rate in the 80s. LUNGS: With mild decrease in breath sounds, no wheezes. HEART: Regular rate and rhythm, S1, S2. No S3 with rub. No gallop. ABDOMEN: Soft, nontender. Positive bowel sounds. No organomegaly. EXTREMITIES: Juvenal wrapping in place. LAB DATA: Lab data revealed BUN and creatinine of 8 and 0.7, hemoglobin of 8.7. IMPRESSION: 1. Status post coronary artery bypass grafting stable. 2. Ischemic cardiomyopathy. 3. Pneumothorax. 4. Hyperlipidemia. 5. Diabetes mellitus. RECOMMENDATION: He will continue on the present dose of beta suzie. We will continue to increase his level of activity. If his blood pressure is stable, then I will add an JUVENAL inhibitor to his regimen and adjust the dose of his beta suzie because of the cardiomyopathy. MMODL / IJN: [id number] /
[2017-12-15 08:06] LABS: Glucose,Whole Blood 117 mg/dL (75-99)
--- NOTE | 2017-12-15 08:13 | XR ---
EXAMINATION TYPE: XR chest 1V portable DATE OF EXAM: 12/15/2017 Comparison: 12/14/2017 Clinical History: 57-year-old male Post Operative Cardiac Surgery Findings: Median sternotomy wires and post-CABG clips in the mediastinum. Mediastinal drain and left-sided ches t tube remain in place. Right-sided anterior approach upper thoracic pleural catheter also present in the second intercostal space. Right IJ sheath in place with removal of the [place]-Lilia catheter. Heart remains borderline to mildly enlarged. Mild diffuse interstitial densities. External artifacts especially right mid and lower lung. Patchy retrocardiac opacity remains. No significant pleural effu andrez or pneumothorax. Impression: 1. There may be mild pulmonary vascular congestion. 2. Continued patchy retrocardiac atelectasis. 3. No appreciable pneumothorax.
[2017-12-15] MEDS: HEPARIN SODIUM,PORCINE 5,000 UNIT/ML 1 ML VIAL SQ SCH ×2 (08:36→16:40)
[2017-12-15] MEDS: PANTOPRAZOLE 40 MG/10 ML VIAL IVP SCH (08:36)
[2017-12-15] MEDS: METOPROLOL TARTRATE 12.5 MG TAB PO SCH (08:36)
[2017-12-15] MEDS: CLOPIDOGREL 75 MG TAB PO SCH (08:36)
[2017-12-15] MEDS: ASPIRIN 325 MG TAB PO SCH (08:37)
[2017-12-15] MEDS: ATORVASTATIN 40 MG TAB PO SCH (08:37)
[2017-12-15] MEDS: HYDROcodone/APAP 5-325MG 1 EACH TAB PO PRN (08:37)
[2017-12-15] MEDS: MUPIROCIN 2% OINT 22 GM TUBE NASAL SCH ×2 (08:37→20:45)
[2017-12-15] MEDS ORDERED: FUROSEMIDE 10 MG/ML 2 ML VIAL IV ONE (09:01)
[2017-12-15] MEDS: amLODIPine 5 MG TAB PO SCH (09:43)
--- NOTE | 2017-12-15 10:02 | P.PN ---
Subjective Progress Note Date: 12/15/17 Principal diagnosis: Coronary artery disease, status post three-vessel coronary artery bypass grafting Pulmonary consult dated 12/14/2017 57-year-old male with a history of [id number] tobacco use mild COPD type 2 diabetes and a history of both hypertension and hyperlipidemia. The patient underwent a three-vessel bypass yesterday. Today is postop day #1. He was extubated right around midnight. He had good weaning parameters and a cuff leak. He was awake and alert. His oxygenation was borderline with a PaO2 of 60 on 40% and 5 of PEEP. Currently he is on 8 L high flow. He's get IV nitroglycerin at a relatively small dose at 1.5 mcg/m, insulin at 1 unit an hour and lactated Ringer's at 50 mL now. Unfortunately, he did develop a right pneumothorax. The thoracic surgeons her to come in and put a Thoravent. The patient feels well. Patient denies any distress. No chest pain or chest discomfort. On 12/15/2017 patient seen again in follow-up in intensive care unit. Patient is sitting up in the recliner, in no acute distress, currently on 4 L per nasal cannula, and a pulse ox is 96-98% afebrile, hemodynamically stable, maintenance IV fluid is LR at a rate of 30 ML per hour, insulin is at 1 unit per hour. Denies any acute distress, pain is reasonably controlled. Patient is status post right upper chest or event placement on 12/15/2017, and today's chest x- ray shows reexpansion of the right lung, mild pulmonary vascular congestion, some patchy retrocardiac atelectasis. Mediastinal and left-sided chest tubes remain in place, CT surgery is planning on discontinuing them today. Right IJ Cordis is in place, and the [place]-L[place] remover has been discontinued. Lung sounds are clear to auscultation, diminished at the bases. Today's labs were reviewed, WBCs 9.5, hemoglobin is 8.7, sodium is 134, the rest of her electrolytes and renal profile within normal limits. Indwelling catheter is in place, patient is making 30-45 ML per hour of urine. There has been 147 mL of left pleural chest tube in the last 24 hours, and to 15 out of the mediastinal. Right third event is to wall suction, the suction will be discontinued today. Sinus rhythm with a rate of 90 BPM, patient is on metoprolol 12.5 mg twice a day. Overall patient is stable, doing well. Incentive spirometry effort is 500- 750 ML. Objective - Vital Signs Vital signs: Vital Signs Temp 98.1 F 12/15/17 08:00 Pulse 93 12/15/17 09:00 Resp 20 12/15/17 09:00 BP 99/53 12/15/17 04:00 Pulse Ox 98 12/15/17 09:00 Intake & Output 12/14/17 12/15/17 12/15/17 18:59 06:59 18:59 Intake Total 774.213 888.330 102 Output Total 812 654 150 Balance -37.787 234.330 -48 Weight 90.8 kg 92 kg Intake: IV 624 682 102 Albumin Human 5% 250 ml 250 In Empty Bag 1 bag @ 250 mls/hr IVPB Q1HR PRN Rx#: [id number] CI/CO 20 Lactated Ringers 420 360 90 Magnesium Sulfate-D5w Pmx 100 1 gm In Dextrose/Water 1 100ml.bag @ 100 mls/hr IVPB Q1H [facility] Rx#: [id number] pressure bag 81 72 12 Intake, IV Titration 30.213 31.330 Amount Insulin Regular 100 unit 30.213 31.330 In Sodium Chloride 0.9% 100 ml @ Per Protocol IV .Q0M [facility] Rx#:[id number] Oral 120 175 Output: Chest Tube Drainage 212 150 60 Left pleural 97 50 40 Mediastinal 115 100 20 R Thora-vent 0 0 0 Drainage 30 70 Left Arm 20 20 Left Lower Calf 10 50 Urine 570 434 90 Other: Voiding Method Indwelling Catheter Indwelling Catheter # Voids 1 ABP, PAP, CO, CI - Last Documented Arterial Blood Pressure 125/52 Pulmonary Artery Pressure 45/23 Cardiac Output 7.2 Cardiac Index 4.4 - Exam No acute distress, oriented 3. Nasal O2 in place. HEENT examination is grossly unremarkable. Mucous membranes are moist. No oral lesions. Neck supple. Full range of motion. No adenopathy thyromegaly or neck vein distention. Cardiovascular examination reveals regular rhythm rate. S1-S2 normal. No S3 or S4. No discernible murmur noted. Lungs reveal mostly clear breath sounds. No rhonchi, no wheezes, but diminished at the bases Abdomen soft bowel sounds are heard. No masses or tenderness. Extremities are intact. No cyanosis clubbing or edema. Skin is without rash or lesion. Midsternal incisions clean dry and intact, covered with surgical dressing, mediastinal and left pleural chest tube sites are clean dry and intact, right upper chest Thoravent is in place, to wall suction. Neurologic examination is brief but nonfocal. - Labs CBC & Chem 7: 12/15/17 04:00 12/15/17 04:00 Labs: Abnormal Lab Results - Last 24 Hours (Table) 12/14/17 12/14/17 12/14/17 Range/Units 10:00 13:52 15:03 RBC (4.30-5.90) m/uL Hgb (13.0-17.5) gm/dL Hct (39.0-53.0) % Sodium (137-145) mmol/L POC Glucose (mg/dL) 134 H 201 H 217 H (75-99) mg/dL Glucose (74-99) mg/dL Magnesium (1.6-2.3) mg/dL Total Protein (6.3-8.2) g/dL Albumin (3.5-5.0) g/dL 12/14/17 12/14/17 12/14/17 Range/Units 16:00 17:17 18:22 RBC (4.30-5.90) m/uL Hgb (13.0-17.5) gm/dL Hct (39.0-53.0) % Sodium (137-145) mmol/L POC Glucose (mg/dL) 168 H 139 H 192 H (75-99) mg/dL Glucose (74-99) mg/dL Magnesium (1.6-2.3) mg/dL Total Protein (6.3-8.2) g/dL Albumin (3.5-5.0) g/dL 12/14/17 12/14/17 12/14/17 Range/Units 18:59 20:10 23:01 RBC (4.30-5.90) m/uL Hgb (13.0-17.5) gm/dL Hct (39.0-53.0) % Sodium (137-145) mmol/L POC Glucose (mg/dL) 190 H 168 H 166 H (75-99) mg/dL Glucose (74-99) mg/dL Magnesium (1.6-2.3) mg/dL Total Protein (6.3-8.2) g/dL Albumin (3.5-5.0) g/dL 12/15/17 12/15/17 12/15/17 Range/Units 01:04 03:07 04:00 RBC (4.30-5.90) m/uL Hgb (13.0-17.5) gm/dL Hct (39.0-53.0) % Sodium 134 L (137-145) mmol/L POC Glucose (mg/dL) 136 H 113 H (75-99) mg/dL Glucose 101 H (74-99) mg/dL Magnesium 2.4 H (1.6-2.3) mg/dL Total Protein 5.0 L (6.3-8.2) g/dL Albumin 3.1 L (3.5-5.0) g/dL 12/15/17 12/15/17 12/15/17 Range/Units 04:00 04:00 04:46 RBC 3.15 L (4.30-5.90) m/uL Hgb 8.7 L D (13.0-17.5) gm/dL Hct 25.6 L (39.0-53.0) % Sodium (137-145) mmol/L POC Glucose (mg/dL) 115 H 116 H (75-99) mg/dL Glucose (74-99) mg/dL Magnesium (1.6-2.3) mg/dL Total Protein (6.3-8.2) g/dL Albumin (3.5-5.0) g/dL 12/15/17 12/15/17 12/15/17 Range/Units 05:52 06:59 08:04 RBC (4.30-5.90) m/uL Hgb (13.0-17.5) gm/dL Hct (39.0-53.0) % Sodium (137-145) mmol/L POC Glucose (mg/dL) 111 H 110 H 117 H (75-99) mg/dL Glucose (74-99) mg/dL Magnesium (1.6-2.3) mg/dL Total Protein (6.3-8.2) g/dL Albumin (3.5-5.0) g/dL Assessment and Plan Plan: Assessment: #1. Coronary artery disease, status post three-vessel coronary artery bypass grafting, KEBEDE to the LAD, the left radial artery from the aorta to the obtuse mild marginal, reverse SVG to the PDA, with endoscopic harvesting of the left radial artery and the left SVG, intraoperative JARED, postop day 2 #2. Routine ventilator management in the postoperative period, patient was successfully extubated on 12/14/2017 at 1 AM, and patient tolerating extubation quite well #3. Right pneumothorax, status post Thoravent placement on 12/15/2017 with subsequent reexpansion of the right lung #4. Hypertension #5. Hyperlipidemia #6. Diabetes mellitus type 2 #7. History of CVA #8. COPD, preoperative bedside spirometry revealed FEV1 of 38% of predicted, consistent with severe obstruction #9. Chronic tobacco use #10. Ischemic cardiomyopathy, with reduced left ventricular systolic function, EF of 30-35% #11. Medical noncompliance Plan: Continue pulmonary toileting, continue incentive spirometer use, patient received an additional dose of IV Lasix per cardiothoracic surgery, remains hemodynamically stable, in sinus mechanism, with a rate of 90 BPM, continues on beta blockers. His pain is reasonably controlled, today's chest x-ray shows reexpansion of the right lung, Thoravent is being managed by CT surgery, and they're planning on discontinuing the wall suction. Mediastinal and left pleural chest tubes will be discontinued. Continue with nebulized bronchodilators, continue ambulation, deep breathing and coughing. Daily chest x-rays, daily labs. We'll continue to closely follow I performed a history & physical examination of the patient and discussed their management with my nurse practitioner, Allyson Juarez. I reviewed the nurse practitioner's note and agree with the documented findings and plan of care. Lung sounds are positive clear lung sounds diminished at the bases. The findings and the impression was discussed with the patient. I attest to the documentation by the nurse practitioner. Time with Patient: Greater than 30
--- NOTE | 2017-12-15 10:15 | P.PN ---
Subjective Progress Note Date: 12/15/17 Principal diagnosis: Triple-vessel coronary artery disease, status post acute anterior wall myocardial infarction, moderate left ventricular dysfunction with the preoperative ejection fraction 30-35% per echocardiogram, hypertension, uncontrolled diabetes with preoperative hemoglobin A1c 10.8%, hyperlipidemia, tobacco abuse with preoperative FEV1 38% of predicted, noncompliance with medical therapy. POD #2 urgent multiple arterial triple coronary artery bypass grafting using the left internal mammary artery to the left anterior descending artery, the left radial artery from the aorta to the obtuse marginal artery, reverse saphenous vein graft from the aorta to the takeoff of the posterior descending artery. Endoscopic harvesting of the left radial artery. Endoscopic harvesting of the left greater saphenous vein from the groin to the knee level. Intraoperative transesophageal echocardiogram and epi-aortic scanning. Intraoperative graft flow measurements using the [employer] system. Patient's currently sitting up in in the recliner in no acute distress. States pain is controlled on current pain medication. No new complaints. Thoravent was placed to right sided chest yesterday with reexpansion of the lung Objective - Vital Signs Vital signs: Vital Signs Temp 98.1 F 12/15/17 08:00 Pulse 93 12/15/17 09:00 Resp 20 12/15/17 09:00 BP 99/53 12/15/17 04:00 Pulse Ox 98 12/15/17 09:00 Intake & Output 12/14/17 12/15/17 12/15/17 18:59 06:59 18:59 Intake Total 774.213 888.330 102 Output Total 812 654 150 Balance -37.787 234.330 -48 Weight 90.8 kg 92 kg Intake: IV 624 682 102 Albumin Human 5% 250 ml 250 In Empty Bag 1 bag @ 250 mls/hr IVPB Q1HR PRN Rx#: [id number] CI/CO 20 Lactated Ringers 420 360 90 Magnesium Sulfate-D5w Pmx 100 1 gm In Dextrose/Water 1 100ml.bag @ 100 mls/hr IVPB Q1H KISHA Rx#: [id number] pressure bag 81 72 12 Intake, IV Titration 30.213 31.330 Amount Insulin Regular 100 unit 30.213 31.330 In Sodium Chloride 0.9% 100 ml @ Per Protocol IV .Q0M KISHA Rx#:[id number] Oral 120 175 Output: Chest Tube Drainage 212 150 60 Left pleural 97 50 40 Mediastinal 115 100 20 R Thora-vent 0 0 0 Drainage 30 70 Left Arm 20 20 Left Lower Calf 10 50 Urine 570 434 90 Other: Voiding Method Indwelling Catheter Indwelling Catheter Indwelling Catheter # Voids 1 ABP, PAP, CO, CI - Last Documented Arterial Blood Pressure 125/52 Pulmonary Artery Pressure 45/23 Cardiac Output 7.2 Cardiac Index 4.4 - Constitutional General appearance: Present: cooperative, no acute distress, obese - Respiratory Details: Lungs sounds diminished bilaterally, right greater than left. Respirations even , nonlabored. Currently on 4 L high flow nasal cannula with oxygen saturation 96%. Able to achieve 750 mL on his incentive spirometry. Effective cough. Mediastinal chest tube to continuous wall suction, 70 mL serosanguineous drainage overnight, 250 mL in the last 24 hours, no air leak. Left pleural chest tube to continuous wall suction, 10 mL serosanguineous drainage overnight , 150 mL the last 24 hours, no air leak present. Right thoravent with no air leak present, atrium discontinued, capped. - Cardiovascular Details: S1, S2 present, positive pericardial rub. Regular rate and rhythm, sinus rhythm on telemetry. Sternum stable. A/V epicardial pacemaker wires present, grounded. Palpable peripheral pulses bilaterally. No edema present. No calf pain or tenderness noted. Right internal jugular Cordis, right radial arterial line present. Heart hugger in place with patient demonstrating appropriate use. Antiembolism stockings, SCDs present. - Gastrointestinal Gastrointestinal Comment(s): Abdomen soft, nontender, nondistended. Hypoactive bowel sounds present 4 quadrants. Tolerating diet. Positive flatus. - Genitourinary Genitourinary Comment(s): Vernon present draining clear, yellow urine. Output 30-35 mL per hour overnight. - Integumentary Integumentary Comment(s): Skin is warm and dry is evidence of good perfusion. Anterior chest incision well approximated with dry intact dressing. Left radial harvest site well approximated, DOUGIE drain drill present with minimal serosanguineous drainage. Left lower extremity EVH site well approximated, DOUGIE drain present with minimal serosanguineous drainage. - Neurologic Neurologic: Present: CNII-XII intact - Musculoskeletal Musculoskeletal: Present: gait normal, strength equal bilaterally - Psychiatric Psychiatric: Present: A&O x's 3, appropriate affect, intact judgment & insight - Allied health notes Allied health notes reviewed: nursing - Labs CBC & Chem 7: 12/15/17 04:00 12/15/17 04:00 Labs: Abnormal Lab Results - Last 24 Hours (Table) 12/14/17 12/14/17 12/14/17 Range/Units 13:52 15:03 16:00 RBC (4.30-5.90) m/uL Hgb (13.0-17.5) gm/dL Hct (39.0-53.0) % Sodium (137-145) mmol/L Glucose (74-99) mg/dL POC Glucose (mg/dL) 201 H 217 H 168 H (75-99) mg/dL Magnesium (1.6-2.3) mg/dL Total Protein (6.3-8.2) g/dL Albumin (3.5-5.0) g/dL 12/14/17 12/14/17 12/14/17 Range/Units 17:17 18:22 18:59 RBC (4.30-5.90) m/uL Hgb (13.0-17.5) gm/dL Hct (39.0-53.0) % Sodium (137-145) mmol/L Glucose (74-99) mg/dL POC Glucose (mg/dL) 139 H 192 H 190 H (75-99) mg/dL Magnesium (1.6-2.3) mg/dL Total Protein (6.3-8.2) g/dL Albumin (3.5-5.0) g/dL 12/14/17 12/14/17 12/15/17 Range/Units 20:10 23:01 01:04 RBC (4.30-5.90) m/uL Hgb (13.0-17.5) gm/dL Hct (39.0-53.0) % Sodium (137-145) mmol/L Glucose (74-99) mg/dL POC Glucose (mg/dL) 168 H 166 H 136 H (75-99) mg/dL Magnesium (1.6-2.3) mg/dL Total Protein (6.3-8.2) g/dL Albumin (3.5-5.0) g/dL 12/15/17 12/15/17 12/15/17 Range/Units 03:07 04:00 04:00 RBC 3.15 L (4.30-5.90) m/uL Hgb 8.7 L D (13.0-17.5) gm/dL Hct 25.6 L (39.0-53.0) % Sodium 134 L (137-145) mmol/L Glucose 101 H (74-99) mg/dL POC Glucose (mg/dL) 113 H (75-99) mg/dL Magnesium 2.4 H (1.6-2.3) mg/dL Total Protein 5.0 L (6.3-8.2) g/dL Albumin 3.1 L (3.5-5.0) g/dL 12/15/17 12/15/17 12/15/17 Range/Units 04:00 04:46 05:52 RBC (4.30-5.90) m/uL Hgb (13.0-17.5) gm/dL Hct (39.0-53.0) % Sodium (137-145) mmol/L Glucose (74-99) mg/dL POC Glucose (mg/dL) 115 H 116 H 111 H (75-99) mg/dL Magnesium (1.6-2.3) mg/dL Total Protein (6.3-8.2) g/dL Albumin (3.5-5.0) g/dL 12/15/17 12/15/17 Range/Units 06:59 08:04 RBC (4.30-5.90) m/uL Hgb (13.0-17.5) gm/dL Hct (39.0-53.0) % Sodium (137-145) mmol/L Glucose (74-99) mg/dL POC Glucose (mg/dL) 110 H 117 H (75-99) mg/dL Magnesium (1.6-2.3) mg/dL Total Protein (6.3-8.2) g/dL Albumin (3.5-5.0) g/dL - Imaging and Cardiology Chest x-ray: report reviewed, image reviewed Assessment and Plan (1) Non-STEMI (non-ST elevated myocardial infarction) Current Visit: Yes Status: Acute Code(s): I21.4 - NON-ST ELEVATION (NSTEMI) MYOCARDIAL INFARCTION SNOMED Code(s): 738733339 (2) Hypertension Current Visit: Yes Status: Chronic Code(s): I10 - ESSENTIAL (PRIMARY) HYPERTENSION SNOMED Code(s): 25556886 (3) Hyperlipidemia Current Visit: Yes Status: Chronic Code(s): E78.5 - HYPERLIPIDEMIA, UNSPECIFIED SNOMED Code(s): 69701292 (4) History of stroke Current Visit: No Status: Resolved Code(s): Z86.73 - PRSNL HX OF TIA (TIA), AND CEREB INFRC W/O RESID DEFICITS SNOMED Code(s): 202494949 (5) Tobacco dependence Current Visit: Yes Status: Chronic Code(s): F17.200 - NICOTINE DEPENDENCE, UNSPECIFIED, UNCOMPLICATED SNOMED Code(s): 82506602 (6) Family history of premature coronary artery disease Current Visit: Yes Status: Chronic Code(s): Z82.49 - FAMILY HX OF ISCHEM HEART DIS AND OTH DIS OF THE CIRC SYS SNOMED Code(s): 990894758 (7) Diabetes mellitus Current Visit: Yes Status: Chronic Code(s): E11.9 - TYPE 2 DIABETES MELLITUS WITHOUT COMPLICATIONS SNOMED Code(s): 67787998 (8) Acute coronary syndrome Current Visit: Yes Status: Acute Code(s): I24.9 - ACUTE ISCHEMIC HEART DISEASE, UNSPECIFIED SNOMED Code(s): 299750883 Plan: 1. Continue aspirin, statin, Plavix, subcu heparin, beta suzie. Will increase beta suzie therapy as tolerated. Patient will need Juvenal inhibitor, will add as blood pressure tolerates. 2. Continue Norvasc for prevention of radial artery spasm. 3. Wean O2 as tolerated. Encourage incentive spirometry use 10 times every hour. 4. Will discontinue mediastinal and left pleural chest tubes. Right Thora- vent to have occlusive plug placed at midnight. 5. Encourage smoking cessation. 6. Increase activity, up to chair, ambulate as tolerated. PT/OT/cardiac rehab following. 7. Will give Lasix 20 mg IV. Discontinue Vernon catheter. 8. Will monitor daily labs and x-rays. 9. GI/DVT prophylaxis. 10. Insulin management per primary care service. 11. Bronchodilators per pulmonology. 12. Will place transfer orders to send patient to [facility]. 13. More recommendations to follow. Time with Patient: Greater than 30
[2017-12-15] MEDS: LACTATED RINGERS 1,000 ML IV SCH (10:21)
[2017-12-15 11:39] LABS: Glucose,Whole Blood 115 mg/dL (75-99)
[2017-12-15] MEDS ORDERED: amLODIPine 2.5 MG TAB PO SCH (12:00)
[2017-12-15] MEDS: INSULIN ASPART 100 UNIT/ML 1 ML 10 ML VIAL SQ SCH ×4 (12:19→20:43)
--- NOTE | 2017-12-15 15:50 | P.PN ---
Subjective Patient is admitted for rest elevation microinfarction found to have severe two- vessel disease in RCA and left circumflex with the significant collaterals to the left coronary system. Patient will undergo coronary artery bypass grafting patient's ejection fraction is that is that 5% patient is not in heart failure exacerbation. 12/11/2017 No overnight events 12/12/2017 No chest pain 12/15/2017 Status post CABG postoperative day 2, chest tubes were removed patient is on aspirin cannula oxygen feeling much better today. Patient was switched to subcutaneous insulin from IV insulin. Constitutional: Denied any fatigue denied any fever. Cardio vascular: denied any chest pain, palpitations Gastrointestinal denied any nausea vomiting Pulmonary: Denied any shortness of breath cough Neurologic denied any new focal deficits Objective - Vital Signs Vital signs: Vital Signs Temp 97.6 F 12/15/17 12:00 Pulse 90 12/15/17 15:00 Resp 20 12/15/17 14:00 BP 95/56 12/15/17 15:00 Pulse Ox 99 12/15/17 15:00 Intake & Output 12/14/17 12/15/17 12/15/17 18:59 06:59 18:59 Intake Total 774.213 888.330 201 Output Total 812 654 495 Balance -37.787 234.330 -294 Weight 90.8 kg 92 kg Intake: IV 624 682 201 Albumin Human 5% 250 ml 250 In Empty Bag 1 bag @ 250 mls/hr IVPB Q1HR PRN Rx#: [id number] CI/CO 20 Lactated Ringers 420 360 180 Magnesium Sulfate-D5w Pmx 100 1 gm In Dextrose/Water 1 100ml.bag @ 100 mls/hr IVPB Q1H KISHA Rx#: [id number] pressure bag 81 72 21 Intake, IV Titration 30.213 31.330 Amount Insulin Regular 100 unit 30.213 31.330 In Sodium Chloride 0.9% 100 ml @ Per Protocol IV .Q0M KISHA Rx#:[id number] Oral 120 175 Output: Chest Tube Drainage 212 150 80 Left pleural 97 50 60 Mediastinal 115 100 20 R Thora-vent 0 0 0 Drainage 30 70 Left Arm 20 20 Left Lower Calf 10 50 Urine 570 434 415 Other: Voiding Method Indwelling Catheter Indwelling Catheter Urinal # Voids 1 ABP, PAP, CO, CI - Last Documented Arterial Blood Pressure 117/40 Pulmonary Artery Pressure 45/23 Cardiac Output 7.2 Cardiac Index 4.4 - Exam PHYSICAL EXAMINATION: GENERAL: The patient is alert and oriented x3, not in any acute distress. Well developed, well nourished. HEENT: Pupils are round and equally reacting to light. EOMI. No scleral icterus. No conjunctival pallor. Normocephalic, atraumatic. No pharyngeal erythema. No thyromegaly. CARDIOVASCULAR: S1 and S2 present. No murmurs, rubs, or gallops. PULMONARY: Chest is clear to auscultation, no wheezing or crackles. ABDOMEN: Soft, nontender, nondistended, normoactive bowel sounds. No palpable organomegaly. MUSCULOSKELETAL: No joint swelling or deformity. EXTREMITIES: No cyanosis, clubbing, or pedal edema. NEUROLOGICAL: Gross neurological examination did not reveal any focal deficits. SKIN: No rashes. - Labs CBC & Chem 7: 12/15/17 04:00 12/15/17 10:04 Labs: Abnormal Lab Results - Last 24 Hours (Table) 12/14/17 12/14/17 12/14/17 Range/Units 16:00 17:17 18:22 RBC (4.30-5.90) m/uL Hgb (13.0-17.5) gm/dL Hct (39.0-53.0) % Sodium (137-145) mmol/L Glucose (74-99) mg/dL POC Glucose (mg/dL) 168 H 139 H 192 H (75-99) mg/dL Magnesium (1.6-2.3) mg/dL Total Protein (6.3-8.2) g/dL Albumin (3.5-5.0) g/dL 12/14/17 12/14/17 12/14/17 Range/Units 18:59 20:10 23:01 RBC (4.30-5.90) m/uL Hgb (13.0-17.5) gm/dL Hct (39.0-53.0) % Sodium (137-145) mmol/L Glucose (74-99) mg/dL POC Glucose (mg/dL) 190 H 168 H 166 H (75-99) mg/dL Magnesium (1.6-2.3) mg/dL Total Protein (6.3-8.2) g/dL Albumin (3.5-5.0) g/dL 12/15/17 12/15/17 12/15/17 Range/Units 01:04 03:07 04:00 RBC (4.30-5.90) m/uL Hgb (13.0-17.5) gm/dL Hct (39.0-53.0) % Sodium 134 L (137-145) mmol/L Glucose 101 H (74-99) mg/dL POC Glucose (mg/dL) 136 H 113 H (75-99) mg/dL Magnesium 2.4 H (1.6-2.3) mg/dL Total Protein 5.0 L (6.3-8.2) g/dL Albumin 3.1 L (3.5-5.0) g/dL 12/15/17 12/15/17 12/15/17 Range/Units 04:00 04:00 04:46 RBC 3.15 L (4.30-5.90) m/uL Hgb 8.7 L D (13.0-17.5) gm/dL Hct 25.6 L (39.0-53.0) % Sodium (137-145) mmol/L Glucose (74-99) mg/dL POC Glucose (mg/dL) 115 H 116 H (75-99) mg/dL Magnesium (1.6-2.3) mg/dL Total Protein (6.3-8.2) g/dL Albumin (3.5-5.0) g/dL 12/15/17 12/15/17 12/15/17 Range/Units 05:52 06:59 08:04 RBC (4.30-5.90) m/uL Hgb (13.0-17.5) gm/dL Hct (39.0-53.0) % Sodium (137-145) mmol/L Glucose (74-99) mg/dL POC Glucose (mg/dL) 111 H 110 H 117 H (75-99) mg/dL Magnesium (1.6-2.3) mg/dL Total Protein (6.3-8.2) g/dL Albumin (3.5-5.0) g/dL 12/15/17 Range/Units 11:37 RBC (4.30-5.90) m/uL Hgb (13.0-17.5) gm/dL Hct (39.0-53.0) % Sodium (137-145) mmol/L Glucose (74-99) mg/dL POC Glucose (mg/dL) 115 H (75-99) mg/dL Magnesium (1.6-2.3) mg/dL Total Protein (6.3-8.2) g/dL Albumin (3.5-5.0) g/dL Assessment and Plan Plan: ST elevation myocardial infarction with three-vessel disease patient will need coronary artery bypass grafting was evaluated by cardiothoracic surgery patient patient is status post coronary artery bypass grafting, removal of chest tubes. -Postoperative pneumothorax: Patient has Toradol and in place which is now disconnected from suction -Acute systolic dysfunction without any pulmonary edema or volume overload. -Type 2 diabetes mellitus noncompliant with diet at home patient will be on sliding scale insulin for now -COPD without any acute exacerbation -Nicotine abuse: Patient is willing to quit smoking from now on. -Hypertension.
[2017-12-15 17:24] LABS: Glucose,Whole Blood 180 mg/dL (75-99)
[2017-12-15] MEDS ORDERED: METOPROLOL TARTRATE 12.5 MG TAB PO STA (18:17)
[2017-12-15 20:36] LABS: Glucose,Whole Blood 211 mg/dL (75-99)
[2017-12-15] MEDS: SENNOSIDES-DOCUSATE SODIUM 1 EACH TAB PO SCH (20:44)
[2017-12-15] MEDS: INSULIN NPH 300 UNIT/3 ML VIAL SQ SCH (20:44)
[2017-12-16] MEDS ORDERED: KETOROLAC 30 MG/ML 1 ML VIAL ONE
[2017-12-16] MEDS ORDERED: METOPROLOL TARTRATE 12.5 MG TAB ONE
[2017-12-16] MEDS ORDERED: HEPARIN SODIUM,PORCINE 5,000 UNIT/ML 1 ML VIAL ONE
[2017-12-16 04:48] LABS: Glucose,Whole Blood 139 mg/dL (75-99)
[2017-12-16] MEDS: INSULIN ASPART 100 UNIT/ML 1 ML 10 ML VIAL SQ SCH ×7 (04:52→20:57)
[2017-12-16] MEDS: KETOROLAC 30 MG/ML 1 ML VIAL IVP SCH ×5 (05:12→23:40)
[2017-12-16] MEDS: HEPARIN SODIUM,PORCINE 5,000 UNIT/ML 1 ML VIAL SQ SCH ×4 (05:12→23:40)
[2017-12-16] MEDS: METOPROLOL TARTRATE 12.5 MG TAB PO SCH ×3 (05:12→20:46)
[2017-12-16 05:49] LABS: ALT 27 U/L (21-72); AST 25 U/L (17-59); Albumin 2.9 g/dL (3.5-5.0); Alkaline Phosphatase 42 U/L (38-126); Anion Gap 8 mmol/L; Blood Urea Nitrogen 17 mg/dL (9-20); Calcium 8.3 mg/dL (8.4-10.2); Carbon Dioxide 25 mmol/L (22-30); Chloride 103 mmol/L (98-107); Glucose 114 mg/dL (74-99); Potassium 4.4 mmol/L (3.5-5.1); Sodium 136 mmol/L (137-145); Total Bilirubin 0.5 mg/dL (0.2-1.3)
[2017-12-16 06:21] LABS: Phosphorus 4.2 mg/dL (2.5-4.5)
[2017-12-16 06:28] LABS: Basophils # (A) 0.1 k/uL (0-0.2); Basophils % (A) 1 %; Eosinophils # (A) 0.3 k/uL (0-0.7); Eosinophils % (A) 3 %; HCT 25.2 % (39.0-53.0); HGB 8.8 gm/dL (13.0-17.5); Lymphocytes # (A) 1.8 k/uL (1.0-4.8); Lymphocytes % (A) 19 %; MCH 28.8 pg (25.0-35.0); MCHC 34.8 g/dL (31.0-37.0); MCV 82.9 fL (80.0-100.0); Mean Platelet Volume 7.1; Monocytes # (A) 0.6 k/uL (0-1.0); Monocytes % (A) 7 %; Neutrophils # (A) 6.7 k/uL (1.3-7.7); Neutrophils % (A) 69 %; Platelet Count 230 k/uL (150-450); RBC 3.04 m/uL (4.30-5.90); RDW 13.3 % (11.5-15.5); WBC 9.6 k/uL (3.8-10.6)
[2017-12-16] MEDS: IPRATROPIUM-ALBUTEROL 3 ML NEB INHALATION SCH ×4 (07:13→19:01)
[2017-12-16 07:26] LABS: Glucose,Whole Blood 132 mg/dL (75-99)
[2017-12-16] MEDS ORDERED: FUROSEMIDE 10 MG/ML 2 ML VIAL IV ONE (07:57)
[2017-12-16] MEDS: INSULN ASP PRT/INSULIN ASPART 100 UNIT/ML 10 ML VIAL SQ SCH (08:05)
--- NOTE | 2017-12-16 08:18 | P.PN ---
Subjective Progress Note Date: 12/16/17 Principal diagnosis: Status post three-vessel bypass grafting, postoperative day #3 Progress note dated 12/16/2017 57-year-old male who is postop day #3, status post three-vessel bypass grafting. The patient developed a right-sided pneumothorax and a Thoravent was placed. The patient has a history of postoperative respiratory failure and was extubated. He has a history of hypertension hyperlipidemia diabetes CVA COPD chronic tobacco use and ischemic cardiomyopathy. The patient also was a very good about taking his medications. The patient seems to be progressing nicely currently. We will focus on deep breathing coughing clearing of secretions as well as use of incentive spirometer every hour. The patient's chest x-ray shows full expansion of the right lung. Labs x-rays a medications are reviewed on this patient. Objective - Vital Signs Vital signs: Vital Signs Temp 98.9 F 12/16/17 04:00 Pulse 84 12/16/17 07:23 Resp 18 12/16/17 07:15 BP 116/62 12/16/17 04:00 Pulse Ox 94 L 12/16/17 06:45 Intake & Output 12/15/17 12/16/17 12/16/17 18:59 06:59 18:59 Intake Total 201 300 Output Total 495 770 Balance -294 -470 Weight 90.6 kg Intake: IV 201 Lactated Ringers 180 pressure bag 21 Oral 300 Output: Chest Tube Drainage 80 Left pleural 60 Mediastinal 20 R Thora-vent 0 Drainage 120 Left Lower Calf 120 Urine 415 650 Other: Voiding Method Urinal Urinal # Voids 1 ABP, PAP, CO, CI - Last Documented Arterial Blood Pressure 117/40 Pulmonary Artery Pressure 45/23 Cardiac Output 7.2 Cardiac Index 4.4 - Exam No acute distress, oriented 3. Nasal O2 in place. HEENT examination is grossly unremarkable. Mucous membranes are moist. No oral lesions. Neck supple. Full range of motion. No adenopathy thyromegaly or neck vein distention. Cardiovascular examination reveals regular rhythm rate. S1-S2 normal. No S3 or S4. No discernible murmur noted. Lungs reveal mostly clear breath sounds. A few scattered rhonchi and crackles appreciated. Breath sounds equal bilaterally. No wheezes are noted. Abdomen soft bowel sounds are heard. No masses or tenderness. Extremities are intact. No cyanosis clubbing or edema. Skin is without rash or lesion. Neurologic examination is brief but nonfocal. - Labs CBC & Chem 7: 12/16/17 04:30 12/16/17 04:30 Labs: Abnormal Lab Results - Last 24 Hours (Table) 12/15/17 12/15/17 12/15/17 Range/Units 11:37 17:22 20:34 RBC (4.30-5.90) m/uL Hgb (13.0-17.5) gm/dL Hct (39.0-53.0) % Sodium (137-145) mmol/L Glucose (74-99) mg/dL POC Glucose (mg/dL) 115 H 180 H 211 H (75-99) mg/dL Calcium (8.4-10.2) mg/dL Total Protein (6.3-8.2) g/dL Albumin (3.5-5.0) g/dL 12/16/17 12/16/17 12/16/17 Range/Units 04:30 04:30 04:46 RBC 3.04 L (4.30-5.90) m/uL Hgb 8.8 L (13.0-17.5) gm/dL Hct 25.2 L (39.0-53.0) % Sodium 136 L (137-145) mmol/L Glucose 114 H (74-99) mg/dL POC Glucose (mg/dL) 139 H (75-99) mg/dL Calcium 8.3 L (8.4-10.2) mg/dL Total Protein 5.0 L (6.3-8.2) g/dL Albumin 2.9 L (3.5-5.0) g/dL 12/16/17 Range/Units 07:23 RBC (4.30-5.90) m/uL Hgb (13.0-17.5) gm/dL Hct (39.0-53.0) % Sodium (137-145) mmol/L Glucose (74-99) mg/dL POC Glucose (mg/dL) 132 H (75-99) mg/dL Calcium (8.4-10.2) mg/dL Total Protein (6.3-8.2) g/dL Albumin (3.5-5.0) g/dL Assessment and Plan Assessment: Assessment Postop day #3, status post three-vessel bypass grafting Postoperative right pneumothorax, status post Thoravent placement Postoperative respiratory failure, resolved History of coronary artery disease History of hypertension History of hyperlipidemia History of diabetes History of CVA Mild COPD secondary to chronic tobacco use Right pneumothorax Plan: Plan dated 12/14/2017 The patient's doing well. The patient will be seen by the thoracic surgeon for possible insertion of a full Atrovent. The patient's respiratory status is stable. Chest x-rays reviewed. There is a significant right-sided pneumothorax. The patient will continue on incentive spirometry. The patient will continue on bronchodilators. The patient will continue coughing and clearing of secretions. Additional recommendations and suggestions are forthcoming. Plan dated 12/16/2017 The patient is postop day #3 status post three-vessel bypass grafting. The patient's x-ray continues to show full expansion of the right lung. The patient will continue to work on deep breathing coughing and clearing of secretions and use of incentive spirometer every hour. The patient will continue on breathing treatments 4 times a day and when necessary. Hemodynamically the patient appears to be stable. We'll continue to follow closely. Prognosis is guarded. Additional recommendations and suggestions are forthcoming. Critical care time 32 minutes Time with Patient: Greater than 30
[2017-12-16] MEDS: ATORVASTATIN 40 MG TAB PO SCH (08:41)
[2017-12-16] MEDS: ASPIRIN 325 MG TAB PO SCH (08:41)
[2017-12-16] MEDS: CLOPIDOGREL 75 MG TAB PO SCH (08:41)
[2017-12-16] MEDS: PANTOPRAZOLE 40 MG TABLET PO SCH (08:41)
[2017-12-16] MEDS: MUPIROCIN 2% OINT 22 GM TUBE NASAL SCH ×3 (08:42→20:42)
--- NOTE | 2017-12-16 08:50 | XR ---
EXAMINATION TYPE: XR chest 1V portable DATE OF EXAM: 12/16/2017 COMPARISON: 12/15/2017 HISTORY: Status post cardiac surgery. Follow-up exam. TECHNIQUE: Single frontal view of the chest is obtained. FINDINGS: Post CABG changes are again seen of the chest. There is been interval removal of the right internal jugular central catheter sheath an left-sided thoracostomy tube. No residual pneumothorax. Scattered linear areas of subsegmental atelectasis are seen bilaterally. Retrocardiac opacity is unch anged. Heart is again upper limits of normal size. IMPRESSION: Multifocal subsegmental atelectasis and retrocardiac airspace disease, also likely relat ed to atelectasis. Interval removal of the left-sided thoracostomy tube with no residual pneumothorax .
--- NOTE | 2017-12-16 09:06 | CDI ---
Last Revision, April 2017 Documentation Clarification Form Date: 12/15/17 From: Inna Moore RN Admit Date: 12/09/2017 2:38:00 AM Patient Name: Preston Li Visit Number: [id number] ATTENTION: The Clinical Documentation Specialists (CDI) and [facility] Coding Staff appreciate your assistance in clarifying documentation. Please respond to the clarification below the line at the bottom and electronically sign. The CDI & [facility] Coding staff will review the response and follow-up if needed. Please note: Queries are made part of the Legal Health Record. If you have any questions, please contact the author of this message via ITS. Dr. Samantha Roth, Pneumothorax is documented in the CXR 12/13. Patients Admitting Diagnosis: STEMI, three vessel carotid disease Post-Operative Diagnosis: same Procedure performed: 12/13 CABG History/Risk Factors: smoker, COPD, DM 2, CVA/TIA, HTN, hyperlipidemia Clinical Indicators: CXR 12/13: There is a 15% right pneumothorax that appears new PN 12/14: He developed a pneumothorax and is scheduled to undergo chest tube placement. PN 12/15: Postoperativepneumothorax Pulmonary 12/14: There is a significant right-sided pneumothorax. PN 12/15: Postoperative pneumothorax Treatment: PN 12/14: Right-sided thoravent placed. Right upper chest Thoravent is in place, to wall suction. Monitoring sats. Consults: Pulmonary In order to accurately reflect this patients severity of illness, please clarify if Pneumothorax is an expected or unexpected complication of the surgical procedure? Expected Unexpected Other, please specify Unable to determine Please continue to document in your progress notes, under the line below and/ or in the discharge summary in order to capture severity of illness and risk of mortality. Include clinical findings that support your diagnosis. MTDD
--- NOTE | 2017-12-16 10:12 | PN ---
PROGRESS NOTE Mr. Li is a 57-year-old status post coronary artery bypass grafting and history of ischemic cardiomyopathy. He is doing well this morning. His breathing has been stable. He denies any symptoms of chest pain. He denies any dizziness or palpitation. He continued to be in sinus mechanism without any evidence of tachycardia or bradycardia. He continued be on aspirin once a day, Lipitor 40 mg daily, Plavix 75 mg daily and metoprolol tartrate 12.5 mg twice a day. PHYSICAL EXAMINATION: Blood pressure 116/60 with the heart rate in the 80s. LUNGS: Clear with few crackles at the bases. HEART: Regular rate and rhythm. S1, S2. No S3. No rub appreciated. ABDOMEN: Soft, nontender. EXTREMITIES: No significant edema. LAB DATA: Lab data revealed BUN and creatinine 17 and 0.79. Hemoglobin of 8.8. IMPRESSION: 1. Status post coronary artery bypass grafting, stable. 2. Pneumothorax, resolved. 3. Ischemic cardiomyopathy. 4. Hyperlipidemia. 5. Diabetes mellitus. RECOMMENDATION: We will continue present therapy. Continue to follow his blood pressure. Depending on the trend an LAURA inhibitor will be added to his regimen. Depending on his progress, further recommendation will be made. MMODL / IJN: [id number] /
--- NOTE | 2017-12-16 10:29 | P.PN ---
Subjective Progress Note Date: 12/16/17 Principal diagnosis: Triple-vessel coronary artery disease, status post acute anterior wall myocardial infarction, moderate left ventricular dysfunction with the preoperative ejection fraction 30-35% per echocardiogram, hypertension, uncontrolled diabetes with preoperative hemoglobin A1c 10.8%, hyperlipidemia, tobacco abuse with preoperative FEV1 38% of predicted, noncompliance with medical therapy. POD #3 urgent multiple arterial triple coronary artery bypass grafting using the left internal mammary artery to the left anterior descending artery, the left radial artery from the aorta to the obtuse marginal artery, reverse saphenous vein graft from the aorta to the takeoff of the posterior descending artery. Endoscopic harvesting of the left radial artery. Endoscopic harvesting of the left greater saphenous vein from the groin to the knee level. Intraoperative transesophageal echocardiogram and epi-aortic scanning. Intraoperative graft flow measurements using the [email or web address] system. Postoperative right-sided pneumothorax, an unexpected outcome of surgery. Patient's currently sitting up in in the recliner in no acute distress. States pain is controlled on current pain medication. No new complaints. Transfer orders were placed yesterday for patient to remove to [facility] care, no beds currently available. Objective - Vital Signs Vital signs: Vital Signs Temp 98.9 F 12/16/17 04:00 Pulse 84 12/16/17 07:23 Resp 18 12/16/17 07:15 BP 116/62 12/16/17 04:00 Pulse Ox 94 L 12/16/17 06:45 Intake & Output 12/15/17 12/16/17 12/16/17 18:59 06:59 18:59 Intake Total 201 300 Output Total 495 770 Balance -294 -470 Weight 90.6 kg Intake: IV 201 Lactated Ringers 180 pressure bag 21 Oral 300 Output: Chest Tube Drainage 80 Left pleural 60 Mediastinal 20 R Thora-vent 0 Drainage 120 Left Lower Calf 120 Urine 415 650 Other: Voiding Method Urinal Urinal # Voids 1 ABP, PAP, CO, CI - Last Documented Arterial Blood Pressure 117/40 Pulmonary Artery Pressure 45/23 Cardiac Output 7.2 Cardiac Index 4.4 - Constitutional General appearance: Present: cooperative, no acute distress - Respiratory Details: Lungs sounds diminished bilaterally. Respirations even, nonlabored. Currently on room air with oxygen saturation 99%. Able to achieve 750-1000 mL on his incentive spirometry. Effective cough. Right thoravent with no air leak present. - Cardiovascular Details: S1, S2 present, positive pericardial rub. Regular rate and rhythm, sinus rhythm on telemetry. Sternum stable. A/V epicardial pacemaker wires present, grounded. Palpable peripheral pulses bilaterally. No edema present. No calf pain or tenderness noted. Heart hugger in place with patient demonstrating appropriate use. Antiembolism stockings, SCDs present. - Gastrointestinal Gastrointestinal Comment(s): Abdomen soft, nontender, nondistended. Active bowel sounds present 4 quadrants. Tolerating diet. Positive flatus. - Genitourinary Genitourinary Comment(s): Vernon discontinued yesterday. Patient continues to void clear, yellow urine. - Integumentary Integumentary Comment(s): Skin is warm and dry is evidence of good perfusion. Anterior chest incision well approximated with dry intact dressing. Left radial harvest site well approximated, good skin color to left arm, no numbness, positive movement to left arm. Left lower extremity EVH site well approximated, DOUGIE drain present with minimal serosanguineous drainage. - Neurologic Neurologic: Present: CNII-XII intact - Musculoskeletal Musculoskeletal: Present: gait normal, strength equal bilaterally - Psychiatric Psychiatric: Present: A&O x's 3, appropriate affect, intact judgment & insight - Allied health notes Allied health notes reviewed: nursing - Labs CBC & Chem 7: 12/16/17 04:30 12/16/17 04:30 Labs: Abnormal Lab Results - Last 24 Hours (Table) 12/15/17 12/15/17 12/15/17 Range/Units 11:37 17:22 20:34 RBC (4.30-5.90) m/uL Hgb (13.0-17.5) gm/dL Hct (39.0-53.0) % Sodium (137-145) mmol/L Glucose (74-99) mg/dL POC Glucose (mg/dL) 115 H 180 H 211 H (75-99) mg/dL Calcium (8.4-10.2) mg/dL Total Protein (6.3-8.2) g/dL Albumin (3.5-5.0) g/dL 12/16/17 12/16/17 12/16/17 Range/Units 04:30 04:30 04:46 RBC 3.04 L (4.30-5.90) m/uL Hgb 8.8 L (13.0-17.5) gm/dL Hct 25.2 L (39.0-53.0) % Sodium 136 L (137-145) mmol/L Glucose 114 H (74-99) mg/dL POC Glucose (mg/dL) 139 H (75-99) mg/dL Calcium 8.3 L (8.4-10.2) mg/dL Total Protein 5.0 L (6.3-8.2) g/dL Albumin 2.9 L (3.5-5.0) g/dL 12/16/17 Range/Units 07:23 RBC (4.30-5.90) m/uL Hgb (13.0-17.5) gm/dL Hct (39.0-53.0) % Sodium (137-145) mmol/L Glucose (74-99) mg/dL POC Glucose (mg/dL) 132 H (75-99) mg/dL Calcium (8.4-10.2) mg/dL Total Protein (6.3-8.2) g/dL Albumin (3.5-5.0) g/dL - Imaging and Cardiology Chest x-ray: image reviewed Assessment and Plan (1) Non-STEMI (non-ST elevated myocardial infarction) Current Visit: Yes Status: Acute Code(s): I21.4 - NON-ST ELEVATION (NSTEMI) MYOCARDIAL INFARCTION SNOMED Code(s): 712604251 (2) Hypertension Current Visit: Yes Status: Chronic Code(s): I10 - ESSENTIAL (PRIMARY) HYPERTENSION SNOMED Code(s): 29526353 (3) Hyperlipidemia Current Visit: Yes Status: Chronic Code(s): E78.5 - HYPERLIPIDEMIA, UNSPECIFIED SNOMED Code(s): 13418022 (4) History of stroke Current Visit: No Status: Resolved Code(s): Z86.73 - PRSNL HX OF TIA (TIA), AND CEREB INFRC W/O RESID DEFICITS SNOMED Code(s): 816430878 (5) Tobacco dependence Current Visit: Yes Status: Chronic Code(s): F17.200 - NICOTINE DEPENDENCE, UNSPECIFIED, UNCOMPLICATED SNOMED Code(s): 71053274 (6) Family history of premature coronary artery disease Current Visit: Yes Status: Chronic Code(s): Z82.49 - FAMILY HX OF ISCHEM HEART DIS AND OTH DIS OF THE CIRC SYS SNOMED Code(s): 853546252 (7) Diabetes mellitus Current Visit: Yes Status: Chronic Code(s): E11.9 - TYPE 2 DIABETES MELLITUS WITHOUT COMPLICATIONS SNOMED Code(s): 76931222 (8) Acute coronary syndrome Current Visit: Yes Status: Acute Code(s): I24.9 - ACUTE ISCHEMIC HEART DISEASE, UNSPECIFIED SNOMED Code(s): 974526039 Plan: 1. Continue aspirin, statin, Plavix, subcu heparin, beta suzie. Will increase beta suzie therapy as tolerated. Patient will need Juvenal inhibitor, will add as blood pressure tolerates. 2. Continue Norvasc for prevention of radial artery spasm. 3. Encourage incentive spirometry use 10 times every hour. 4. Will discontinue Thora-vent. 5. Epicardial pacemaker wires discontinued without incident. 6. Encourage smoking cessation. 7. Increase activity, up to chair, ambulate as tolerated. PT/OT/cardiac rehab following. 8. Will give Lasix 20 mg IV. 9. Will monitor daily labs and x-rays. 10. GI/DVT prophylaxis. 11. Insulin management per primary care service. 12. Bronchodilators per pulmonology. 13. May [facility] to [facility] when bed available. 14. Limited echo ordered to evaluate ejection fraction. If EF still less than 40% patient will likely need LifeVest at discharge. 15. More recommendations to follow. Time with Patient: Greater than 30
--- NOTE | 2017-12-16 11:22 | ECHOF ---
Referral Reason:evaluate EF MEASUREMENTS -------- HEIGHT: 177.8 cm WEIGHT: 90.3 kg BP: 116/62 HR_2Ch_Q: 88 bpm HR_4Ch_Q: 90 bpm LVVED_2Ch_Q: 86 ml LVVED_4Ch_Q: 136 ml LVVED_BiP_Q: 107 ml LVVES_2Ch_Q: 45 ml LVVES_4Ch_Q: 71 ml LVVES_BiP_Q: 56 ml LVEF_2Ch_Q: 48 % LVEF_4Ch_Q: 48 % LVEF_BiP_Q: 47 % LVSV_2Ch_Q: 41 ml LVSV_4Ch_Q: 65 ml LVSV_BiP_Q: 51 ml LVCO_2Ch_Q: 3.6 l/min LVCO_4Ch_Q: 5.8 l/min LVCO_BiP_Q: 4.4 l/min LVLs_2Ch_Q: 8.2 cm LVLs_4Ch_Q: 8.1 cm LVLd_2Ch_Q: 9.2 cm LVLd_4Ch_Q: 9.2 cm AV Vmax: 1.25 m/s AV maxP.24 mmHg FINDINGS -------- Sinus rhythm. Limited Study Overall left ventricular systolic function is mildly impaired with, an EF between 45 - 50 %. Apical inferior LV wall motion is hypokinetic. Apical septum LV wall motion is hypokinetic. There is no pericardial effusion. CONCLUSIONS -------- 1. Sinus rhythm. 2. Limited Study 3. Overall left ventricular systolic function is mildly impaired with, an EF between 45 - 50 %. 4. Apical inferior LV wall motion is hypokinetic. 5. Apical septum LV wall motion is hypokinetic. 6. There is no pericardial effusion. [employer] OPERATOR: Ángela Redmond RDCS
[2017-12-16] MEDS: amLODIPine 5 MG TAB PO SCH (11:57)
[2017-12-16 12:05] LABS: Glucose,Whole Blood 85 mg/dL (75-99)
[2017-12-16 14:17] VITALS: BMI 28.6
--- NOTE | 2017-12-16 14:46 | P.PN ---
Subjective Patient is admitted for rest elevation microinfarction found to have severe two- vessel disease in RCA and left circumflex with the significant collaterals to the left coronary system. Patient will undergo coronary artery bypass grafting patient's ejection fraction is that is that 5% patient is not in heart failure exacerbation. 12/11/2017 No overnight events 12/12/2017 No chest pain 12/15/2017 Status post CABG postoperative day 2, chest tubes were removed patient is on aspirin cannula oxygen feeling much better today. Patient was switched to subcutaneous insulin from IV insulin. 12/16/2017 No overnight events patient is otherwise clinically doing well. Constitutional: Denied any fatigue denied any fever. Cardio vascular: denied any chest pain, palpitations Gastrointestinal denied any nausea vomiting Pulmonary: Denied any shortness of breath cough Neurologic denied any new focal deficits Objective - Vital Signs Vital signs: Vital Signs Temp 98.5 F 12/16/17 12:00 Pulse 97 12/16/17 12:00 Resp 26 H 12/16/17 12:00 BP 109/60 12/16/17 12:00 Pulse Ox 92 L 12/16/17 12:00 Intake & Output 12/15/17 12/16/17 12/16/17 18:59 06:59 18:59 Intake Total 201 300 Output Total 172 256 3587 Balance -294 -470 -1280 Weight 90.6 kg 90.6 kg Intake: IV 201 Lactated Ringers 180 pressure bag 21 Oral 300 Output: Chest Tube Drainage 80 Left pleural 60 Mediastinal 20 R Thora-vent 0 Drainage 120 30 Left Lower Calf 120 30 Urine 099 841 1683 Other: Voiding Method Urinal Urinal Urinal # Voids 1 ABP, PAP, CO, CI - Last Documented Arterial Blood Pressure 117/40 Pulmonary Artery Pressure 45/23 Cardiac Output 7.2 Cardiac Index 4.4 - Exam PHYSICAL EXAMINATION: GENERAL: The patient is alert and oriented x3, not in any acute distress. Well developed, well nourished. HEENT: Pupils are round and equally reacting to light. EOMI. No scleral icterus. No conjunctival pallor. Normocephalic, atraumatic. No pharyngeal erythema. No thyromegaly. CARDIOVASCULAR: S1 and S2 present. No murmurs, rubs, or gallops. PULMONARY: Chest is clear to auscultation, no wheezing or crackles. ABDOMEN: Soft, nontender, nondistended, normoactive bowel sounds. No palpable organomegaly. MUSCULOSKELETAL: No joint swelling or deformity. EXTREMITIES: No cyanosis, clubbing, or pedal edema. NEUROLOGICAL: Gross neurological examination did not reveal any focal deficits. SKIN: No rashes. - Labs CBC & Chem 7: 12/16/17 04:30 12/16/17 04:30 Labs: Abnormal Lab Results - Last 24 Hours (Table) 12/15/17 12/15/17 12/16/17 Range/Units 17:22 20:34 04:30 RBC (4.30-5.90) m/uL Hgb (13.0-17.5) gm/dL Hct (39.0-53.0) % Sodium 136 L (137-145) mmol/L Glucose 114 H (74-99) mg/dL POC Glucose (mg/dL) 180 H 211 H (75-99) mg/dL Calcium 8.3 L (8.4-10.2) mg/dL Total Protein 5.0 L (6.3-8.2) g/dL Albumin 2.9 L (3.5-5.0) g/dL 12/16/17 12/16/17 12/16/17 Range/Units 04:30 04:46 07:23 RBC 3.04 L (4.30-5.90) m/uL Hgb 8.8 L (13.0-17.5) gm/dL Hct 25.2 L (39.0-53.0) % Sodium (137-145) mmol/L Glucose (74-99) mg/dL POC Glucose (mg/dL) 139 H 132 H (75-99) mg/dL Calcium (8.4-10.2) mg/dL Total Protein (6.3-8.2) g/dL Albumin (3.5-5.0) g/dL Assessment and Plan Plan: ST elevation myocardial infarction with three-vessel disease patient will need coronary artery bypass grafting was evaluated by cardiothoracic surgery patient patient is status post coronary artery bypass grafting, removal of chest tubes. -Postoperative pneumothorax: Patient has Toradol and in place which is now disconnected from suction -Acute systolic dysfunction without any pulmonary edema or volume overload. Repeat echocardiogram was ordered and results are pending -Type 2 diabetes mellitus noncompliant with diet at home patient will be on sliding scale insulin for now -COPD without any acute exacerbation -Nicotine abuse: Patient is willing to quit smoking from now on. -Hypertension.
[2017-12-16 17:20] LABS: Glucose,Whole Blood 137 mg/dL (75-99)
[2017-12-16] MEDS: METOPROLOL SUCCINATE (ER) 25 MG TAB.ER.24H PO SCH (17:50)
[2017-12-16] MEDS: ATORVASTATIN 80 MG TAB PO SCH (17:50)
[2017-12-16] MEDS: LOSARTAN 25 MG TAB PO SCH (17:50)
[2017-12-16] MEDS: ASPIRIN 81 MG PO SCH (17:50)
[2017-12-16] MEDS: SENNOSIDES-DOCUSATE SODIUM 1 EACH TAB PO SCH (20:46)
[2017-12-16 20:51] LABS: Glucose,Whole Blood 153 mg/dL (75-99)
[2017-12-16] MEDS: INSULIN NPH 300 UNIT/3 ML VIAL SQ SCH (20:57)
[2017-12-17 02:26] LABS: Glucose,Whole Blood 85 mg/dL (75-99)
[2017-12-17] MEDS: INSULIN ASPART 100 UNIT/ML 1 ML 10 ML VIAL SQ SCH ×5 (02:28→16:20)
[2017-12-17 05:43] LABS: Glucose,Whole Blood 97 mg/dL (75-99)
[2017-12-17 06:07] LABS: HCT 27.3 % (39.0-53.0); HGB 9.1 gm/dL (13.0-17.5); MCH 27.3 pg (25.0-35.0); MCHC 33.2 g/dL (31.0-37.0); MCV 82.2 fL (80.0-100.0); Mean Platelet Volume 6.6; Platelet Count 297 k/uL (150-450); RBC 3.32 m/uL (4.30-5.90); RDW 13.1 % (11.5-15.5)
[2017-12-17 06:28] LABS: ALT 36 U/L (21-72); AST 32 U/L (17-59); Alkaline Phosphatase 45 U/L (38-126); Anion Gap 8 mmol/L; Blood Urea Nitrogen 16 mg/dL (9-20); Calcium 8.5 mg/dL (8.4-10.2); Carbon Dioxide 25 mmol/L (22-30); Chloride 104 mmol/L (98-107); Glucose 76 mg/dL (74-99); Potassium 4.3 mmol/L (3.5-5.1); Sodium 137 mmol/L (137-145); Total Bilirubin 0.5 mg/dL (0.2-1.3); Total Protein 5.3 g/dL (6.3-8.2)
[2017-12-17] MEDS: KETOROLAC 30 MG/ML 1 ML VIAL IVP SCH ×2 (06:56→12:08)
[2017-12-17] MEDS: INSULN ASP PRT/INSULIN ASPART 100 UNIT/ML 10 ML VIAL SQ SCH (06:57)
[2017-12-17] MEDS: PANTOPRAZOLE 40 MG TABLET PO SCH (06:57)
[2017-12-17] MEDS: IPRATROPIUM-ALBUTEROL 3 ML NEB INHALATION SCH ×3 (07:44→16:20)
[2017-12-17] MEDS: ASPIRIN 325 MG TAB PO SCH (07:56)
[2017-12-17] MEDS: METOPROLOL TARTRATE 12.5 MG TAB PO SCH (07:56)
[2017-12-17] MEDS: HEPARIN SODIUM,PORCINE 5,000 UNIT/ML 1 ML VIAL SQ SCH ×2 (07:56→16:20)
[2017-12-17] MEDS: CLOPIDOGREL 75 MG TAB PO SCH (07:57)
[2017-12-17] MEDS: ATORVASTATIN 40 MG TAB PO SCH (07:57)
--- NOTE | 2017-12-17 08:06 | XR ---
EXAMINATION TYPE: XR chest 2V DATE OF EXAM: 12/17/2017 COMPARISON: 12/16/2017 INDICATION: Post cardiac surgery TECHNIQUE: Frontal and lateral views of the chest are obtained. FINDINGS: The heart size is normal. The pulmonary vasculature is normal. There is an infiltrate in the left lower lobe. Some mild blunting of the right costophrenic angle is present.. IMPRESSION: 1. Mild bibasilar infiltrates slightly increased from comparison
[2017-12-17] MEDS ORDERED: METOPROLOL TARTRATE 12.5 MG TAB PO STA (09:13)
[2017-12-17] MEDS ORDERED: FUROSEMIDE 10 MG/ML 2 ML VIAL IV ONE (10:15)
--- NOTE | 2017-12-17 11:22 | PN ---
PROGRESS NOTE Mr. Li is a 57-year-old male with a history of coronary artery disease, status post coronary artery bypass grafting. He is doing well this morning. Ambulating without difficulty. Continued to be in sinus mechanism. Denying any chest pain. No dizziness. No palpitation. His breathing has been stable. He has no nausea or vomiting. He continues to be on aspirin once a day, Lipitor 40 mg daily, Plavix 75 mg daily, metoprolol tartrate 25 mg twice a day. PHYSICAL EXAMINATION: Blood pressure 119/60 with the heart rate in the 90s. LUNGS: No wheezes or rales. HEART: Regular rate and rhythm. S1, S2. No S3. No rub. ABDOMEN: Soft, nontender. EXTREMITIES: Trace edema. LAB DATA: Lab data revealed BUN and creatinine 16 and 0.81. Hemoglobin of 14.3. IMPRESSION: 1. Status post coronary artery bypass grafting, stable. 2. Hypertension. 3. Hyperlipidemia. 4. Ischemic cardiomyopathy. RECOMMENDATION: From the cardiac standpoint, he is stable. We will continue the present regimen. His blood pressure remains on the low side. Depending on the trend, outpatient LAURA inhibitor can be added to his regimen. He should be able to hopefully to be discharged home soon and followed as an outpatient. MMODL / IJN: [id number] /
[2017-12-17 11:45] LABS: Glucose,Whole Blood 88 mg/dL (75-99)
--- NOTE | 2017-12-17 11:47 | CDI ---
Last Revision, April 2017 Documentation Clarification Form Date: 12/17/17 From: Inna Moore RN Admit Date: 12/09/2017 2:38:00 AM Patient Name: Preston Li Visit Number: [id number] ATTENTION: The Clinical Documentation Specialists (CDI) and [facility] Coding Staff appreciate your assistance in clarifying documentation. Please respond to the clarification below the line at the bottom and electronically sign. The CDI & [facility] Coding staff will review the response and follow-up if needed. Please note: Queries are made part of the Legal Health Record. If you have any questions, please contact the author of this message via ITS. Dr. Adams Gray, Postoperative respiratory failure is documented in the chart. Patient had CABG on 12/13 In your PN on 12/14 you stated " Postoperative respiratory failure, status post bypass grafting " PN 12/14: Postoperative respiratory failure, resolved Patient history/risk factors: smoker, COPD, DM 2, CVA/TIA, HTN, hyperlipidemia Clinical Indicators: Labs: WBC 12.7, NEUTRO 8.8, INR 1.2, APTT 50.4, SOD 136, AST 242, CKMB 128.0 , TROP 52.100 Vital Signs:T 97.9, P 101, R 18, 168/74, 96% 2L Treatment: Oxygen: 2L Medication: Duoneb Monitor labs Please document confirmation of the clinical validation: Postoperative respiratory failure Postoperative ventilator management Unable to determine Other (Please specify) Please continue to document in your progress notes, under the line below and/or in the discharge summary in order to capture severity of illness and risk of mortality. Include clinical findings that support your diagnosis. Postop respiratory failure, ruled out, postop CABG ventilator management. MTDD
[2017-12-17 12:05] VITALS: BP 113/59; PULSE 93; RESP 18; TEMP 98
--- NOTE | 2017-12-17 12:05 | P.PN ---
Subjective Progress Note Date: 12/17/17 Principal diagnosis: Triple-vessel coronary artery disease, status post acute anterior wall myocardial infarction, moderate left ventricular dysfunction with the preoperative ejection fraction 30-35% per echocardiogram, hypertension, uncontrolled diabetes with preoperative hemoglobin A1c 10.8%, hyperlipidemia, tobacco abuse with preoperative FEV1 38% of predicted, noncompliance with medical therapy. POD #4 urgent multiple arterial triple coronary artery bypass grafting using the left internal mammary artery to the left anterior descending artery, the left radial artery from the aorta to the obtuse marginal artery, reverse saphenous vein graft from the aorta to the takeoff of the posterior descending artery. Endoscopic harvesting of the left radial artery. Endoscopic harvesting of the left greater saphenous vein from the groin to the knee level. Intraoperative transesophageal echocardiogram and epi-aortic scanning. Intraoperative graft flow measurements using the [employer] system. Postoperative right-sided pneumothorax, an unexpected outcome of surgery. Patient's currently sitting up in in the chair in no acute distress. States pain is controlled on current pain medication. No new complaints. Patient was transferred to [address] [place] [address] yesterday and received his first shower. States he is ready to go home Objective - Vital Signs Vital signs: Vital Signs Temp 97.6 F 12/17/17 08:00 Pulse 98 12/17/17 11:42 Resp 20 12/17/17 11:42 BP 105/62 12/17/17 10:26 Pulse Ox 95 12/17/17 10:26 Intake & Output 12/16/17 12/17/17 12/17/17 18:59 06:59 18:59 Intake Total 240 500 420 Output Total 1350 40 300 Balance -1110 460 120 Weight 90.6 kg 85.9 kg Intake: IV 20 Invasive Line 9 20 Oral 240 480 420 Output: Drainage 100 40 Left Lower Calf 100 40 Urine 1250 300 Other: Voiding Method Urinal Toilet Toilet Urinal Urinal # Voids 1 1 # Bowel Movements 1 ABP, PAP, CO, CI - Last Documented Arterial Blood Pressure 117/40 Pulmonary Artery Pressure 45/23 Cardiac Output 7.2 Cardiac Index 4.4 - Constitutional General appearance: Present: cooperative, no acute distress - Respiratory Details: Lungs sounds diminished bilaterally. Respirations even, nonlabored. Currently on room air with oxygen saturation 99%. Able to achieve 1750 mL on his incentive spirometry. Effective cough. - Cardiovascular Details: S1, S2 present. Regular rate and rhythm, sinus rhythm on telemetry. Sternum stable. Palpable peripheral pulses bilaterally. No edema present. No calf pain or tenderness noted. Heart hugger in place with patient demonstrating appropriate use. Antiembolism stockings, SCDs present. - Gastrointestinal Gastrointestinal Comment(s): Abdomen soft, nontender, nondistended. Active bowel sounds present 4 quadrants. Tolerating diet. Positive bowel movement. - Genitourinary Genitourinary Comment(s): Continues to void clear, yellow urine. - Integumentary Integumentary Comment(s): Skin is warm and dry is evidence of good perfusion. Anterior chest incision well approximated with dry intact dressing. Left radial harvest site well approximated, good skin color to left arm, no numbness, positive movement to left arm. Left lower extremity EVH site well approximated, DOUGIE drain present with minimal serosanguineous drainage. - Neurologic Neurologic: Present: CNII-XII intact - Musculoskeletal Musculoskeletal: Present: gait normal, strength equal bilaterally - Psychiatric Psychiatric: Present: A&O x's 3, appropriate affect - Allied health notes Allied health notes reviewed: nursing - Labs CBC & Chem 7: 12/17/17 05:25 12/17/17 05:25 Labs: Abnormal Lab Results - Last 24 Hours (Table) 12/16/17 12/16/17 12/17/17 Range/Units 17:19 20:50 05:25 RBC 3.32 L (4.30-5.90) m/uL Hgb 9.1 L (13.0-17.5) gm/dL Hct 27.3 L (39.0-53.0) % POC Glucose (mg/dL) 137 H 153 H (75-99) mg/dL Total Protein (6.3-8.2) g/dL Albumin (3.5-5.0) g/dL 12/17/17 Range/Units 05:25 RBC (4.30-5.90) m/uL Hgb (13.0-17.5) gm/dL Hct (39.0-53.0) % POC Glucose (mg/dL) (75-99) mg/dL Total Protein 5.3 L (6.3-8.2) g/dL Albumin 3.0 L (3.5-5.0) g/dL - Imaging and Cardiology Chest x-ray: report reviewed, image reviewed Assessment and Plan (1) Non-STEMI (non-ST elevated myocardial infarction) Current Visit: Yes Status: Acute Code(s): I21.4 - NON-ST ELEVATION (NSTEMI) MYOCARDIAL INFARCTION SNOMED Code(s): 105422917 (2) Hypertension Current Visit: Yes Status: Chronic Code(s): I10 - ESSENTIAL (PRIMARY) HYPERTENSION SNOMED Code(s): 20355258 (3) Hyperlipidemia Current Visit: Yes Status: Chronic Code(s): E78.5 - HYPERLIPIDEMIA, UNSPECIFIED SNOMED Code(s): 59442802 (4) History of stroke Current Visit: No Status: Resolved Code(s): Z86.73 - PRSNL HX OF TIA (TIA), AND CEREB INFRC W/O RESID DEFICITS SNOMED Code(s): 917177631 (5) Tobacco dependence Current Visit: Yes Status: Chronic Code(s): F17.200 - NICOTINE DEPENDENCE, UNSPECIFIED, UNCOMPLICATED SNOMED Code(s): 25435315 (6) Family history of premature coronary artery disease Current Visit: Yes Status: Chronic Code(s): Z82.49 - FAMILY HX OF ISCHEM HEART DIS AND OTH DIS OF THE CIRC SYS SNOMED Code(s): 669163076 (7) Diabetes mellitus Current Visit: Yes Status: Chronic Code(s): E11.9 - TYPE 2 DIABETES MELLITUS WITHOUT COMPLICATIONS SNOMED Code(s): 19457009 (8) Acute coronary syndrome Current Visit: Yes Status: Acute Code(s): I24.9 - ACUTE ISCHEMIC HEART DISEASE, UNSPECIFIED SNOMED Code(s): 008167821 Plan: 1. Continue aspirin, statin, Plavix, beta suzie. Will add LAURA inhibitor as outpatient. 2. Continue Norvasc for prevention of radial artery spasm. 3. Encourage incentive spirometry use 10 times every hour. 4. Encourage smoking cessation. 5. Increase activity, up to chair, ambulate as tolerated. PT/OT/cardiac rehab following. 6. Will give Lasix 20 mg IV. 7. Will monitor daily labs and x-rays. 8. GI/DVT prophylaxis. 9. Insulin management per primary care service. 10. Bronchodilators per pulmonology. 11. Limited echo demonstrated an ejection fraction now 45-50%. No LifeVest needed. 12. Will discharge to home with home care later today. Follow-up appointments made. Time with Patient: Greater than 30
[2017-12-17] MEDS: amLODIPine 5 MG TAB PO SCH (12:11)
--- NOTE | 2017-12-17 13:21 | XR ---
EXAMINATION TYPE: XR chest 1V DATE OF EXAM: 12/17/2017 COMPARISON: 12/17/2017 earlier exam INDICATION: Cough TECHNIQUE: Single frontal view of the chest is obtained. FINDINGS: The heart size is normal. The pulmonary vasculature is normal. Mild infiltrate is at the left base and appears stable from comparison. Some mild infiltrate is at t he right base. Minimal right pleural effusion may be present IMPRESSION: 1. Mild bibasilar infiltrates slightly worsening at the right base. 2. Minimal right pleural effusion likely remains present.
--- NOTE | 2017-12-17 13:26 | P.PN ---
Subjective Progress Note Date: 12/17/17 Principal diagnosis: Coronary artery disease, status post three-vessel coronary artery bypass grafting Pulmonary consult dated 12/14/2017 57-year-old male with a history of [id number] tobacco use mild COPD type 2 diabetes and a history of both hypertension and hyperlipidemia. The patient underwent a three-vessel bypass yesterday. Today is postop day #1. He was extubated right around midnight. He had good weaning parameters and a cuff leak. He was awake and alert. His oxygenation was borderline with a PaO2 of 60 on 40% and 5 of PEEP. Currently he is on 8 L high flow. He's get IV nitroglycerin at a relatively small dose at 1.5 mcg/m, insulin at 1 unit an hour and lactated Ringer's at 50 mL now. Unfortunately, he did develop a right pneumothorax. The thoracic surgeons her to come in and put a Thoravent. The patient feels well. Patient denies any distress. No chest pain or chest discomfort. On 12/15/2017 patient seen again in follow-up in intensive care unit. Patient is sitting up in the recliner, in no acute distress, currently on 4 L per nasal cannula, and a pulse ox is 96-98% afebrile, hemodynamically stable, maintenance IV fluid is LR at a rate of 30 ML per hour, insulin is at 1 unit per hour. Denies any acute distress, pain is reasonably controlled. Patient is status post right upper chest or event placement on 12/15/2017, and today's chest x- ray shows reexpansion of the right lung, mild pulmonary vascular congestion, some patchy retrocardiac atelectasis. Mediastinal and left-sided chest tubes remain in place, CT surgery is planning on discontinuing them today. Right IJ Cordis is in place, and the Starke-Lilia remover has been discontinued. Lung sounds are clear to auscultation, diminished at the bases. Today's labs were reviewed, WBCs 9.5, hemoglobin is 8.7, sodium is 134, the rest of her electrolytes and renal profile within normal limits. Indwelling catheter is in place, patient is making 30-45 ML per hour of urine. There has been 147 mL of left pleural chest tube in the last 24 hours, and to 15 out of the mediastinal. Right third event is to wall suction, the suction will be discontinued today. Sinus rhythm with a rate of 90 BPM, patient is on metoprolol 12.5 mg twice a day. Overall patient is stable, doing well. Incentive spirometry effort is 500- 750 ML. Progress note dated 12/16/2017 57-year-old male who is postop day #3, status post three-vessel bypass grafting. The patient developed a right-sided pneumothorax and a Thoravent was placed. The patient has a history of postoperative respiratory failure and was extubated. He has a history of hypertension hyperlipidemia diabetes CVA COPD chronic tobacco use and ischemic cardiomyopathy. The patient also was a very good about taking his medications. The patient seems to be progressing nicely currently. We will focus on deep breathing coughing clearing of secretions as well as use of incentive spirometer every hour. The patient's chest x-ray shows full expansion of the right lung. Labs x-rays a medications are reviewed on this patient. On 12/17/2017 patient seen again in follow-up on selective care unit. Denies any distress, he sitting up in the chair at the bedside, on room air, his pulse ox is 95%, his vitals are stable, no fever, no chills, lung sounds are clear to auscultation. Today's chest x-ray was reviewed by Dr. Mejia, shows mild bibasilar infiltrates, and minimal right pleural effusion. Today's lab work was reviewed, WBC is 9.0, hemoglobin is 9.1, renal profile and electrolytes are normal. He has been ambulating, his pain is under good control. Compliant with his incentive spirometer. No acute issues overnight, anticipate discharge home today. Objective - Vital Signs Vital signs: Vital Signs Temp 98.0 F 12/17/17 12:05 Pulse 93 12/17/17 12:05 Resp 18 12/17/17 12:05 BP 113/59 12/17/17 12:05 Pulse Ox 95 12/17/17 12:05 Intake & Output 12/16/17 12/17/17 12/17/17 18:59 06:59 18:59 Intake Total 240 500 420 Output Total 1350 40 300 Balance -1110 460 120 Weight 90.6 kg 85.9 kg Intake: IV 20 Invasive Line 9 20 Oral 240 480 420 Output: Drainage 100 40 Left Lower Calf 100 40 Urine 1250 300 Other: Voiding Method Urinal Toilet Toilet Urinal Urinal # Voids 1 1 # Bowel Movements 1 ABP, PAP, CO, CI - Last Documented Arterial Blood Pressure 117/40 Pulmonary Artery Pressure 45/23 Cardiac Output 7.2 Cardiac Index 4.4 - Exam No acute distress, oriented 3. Nasal O2 in place. HEENT examination is grossly unremarkable. Mucous membranes are moist. No oral lesions. Neck supple. Full range of motion. No adenopathy thyromegaly or neck vein distention. Cardiovascular examination reveals regular rhythm rate. S1-S2 normal. No S3 or S4. No discernible murmur noted. Lungs reveal mostly clear breath sounds. No rhonchi, no wheezes, but diminished at the bases Abdomen soft bowel sounds are heard. No masses or tenderness. Extremities are intact. No cyanosis clubbing or edema. Skin is without rash or lesion. Midsternal incisions clean dry and intact, covered with surgical dressing, mediastinal and left pleural chest tube sites are clean dry and intact. Neurologic examination is brief but nonfocal. - Labs CBC & Chem 7: 12/17/17 05:25 12/17/17 05:25 Labs: Abnormal Lab Results - Last 24 Hours (Table) 12/16/17 12/16/17 12/17/17 Range/Units 17:19 20:50 05:25 RBC 3.32 L (4.30-5.90) m/uL Hgb 9.1 L (13.0-17.5) gm/dL Hct 27.3 L (39.0-53.0) % POC Glucose (mg/dL) 137 H 153 H (75-99) mg/dL Total Protein (6.3-8.2) g/dL Albumin (3.5-5.0) g/dL 12/17/17 Range/Units 05:25 RBC (4.30-5.90) m/uL Hgb (13.0-17.5) gm/dL Hct (39.0-53.0) % POC Glucose (mg/dL) (75-99) mg/dL Total Protein 5.3 L (6.3-8.2) g/dL Albumin 3.0 L (3.5-5.0) g/dL Assessment and Plan Plan: Assessment: #1. Coronary artery disease, status post three-vessel coronary artery bypass grafting, KEBEDE to the LAD, the left radial artery from the aorta to the obtuse mild marginal, reverse SVG to the PDA, with endoscopic harvesting of the left radial artery and the left SVG, intraoperative JARED, postop day 2 #2. Postoperative respiratory failure, ruled out. Postop CABG vent management #3. Right pneumothorax, status post Thoravent placement on 12/15/2017 with subsequent reexpansion of the right lung #4. Hypertension #5. Hyperlipidemia #6. Diabetes mellitus type 2 #7. History of CVA #8. COPD, preoperative bedside spirometry revealed FEV1 of 38% of predicted, consistent with severe obstruction #9. Chronic tobacco use #10. Ischemic cardiomyopathy, with reduced left ventricular systolic function, EF of 30-35% #11. Medical noncompliance Plan: Patient is stable, denies any pain, denies any dyspnea, vital signs are stable. No acute events overnight, continue encouraging pulmonary toileting, continue encouraging ambulation. We'll need follow-up appointment with Dr. Gray in the office in one week. Able for discharge from pulmonary standpoint. I performed a history & physical examination of the patient and discussed their management with my nurse practitioner, Allyson Juarez. I reviewed the nurse practitioner's note and agree with the documented findings and plan of care. Lung sounds are positive clear lung sounds diminished at the bases. The findings and the impression was discussed with the patient. I attest to the documentation by the nurse practitioner. Time with Patient: Less than 30
--- NOTE | 2017-12-17 14:10 | P.DS ---
Providers Date of admission: 12/09/17 02:38 Expected date of discharge: 12/17/17 Attending physician: Samantha Roth Consults: 12/09/17 03:12 Consult Physician Urgent Consulting Provider: Samantha Roth Consult Reason/Comments: Triple Vessel Disease Do you want consulting provider notified?: Yes, Notify in am 12/09/17 03:36 Consult Physician Urgent Consulting Provider: Amado Mcgraw Consult Reason/Comments: STEMI Do you want consulting provider notified?: Already Contacted 12/09/17 07:39 Consult Physician Routine Consulting Provider: Jennifer Ly Consult Reason/Comments: preop cabg Do you want consulting provider notified?: Yes Consult to Anesthesia Routine Consulting Provider: Anesthesia,Services Consult Reason/Comments: Cardiac Surgery Pre-Op 12/13/17 14:28 Consult Physician Routine Consulting Provider: Tameka Green Consult Reason/Comments: med management Do you want consulting provider notified?: Already Contacted 12/14/17 06:05 Consult Physician Routine Consulting Provider: Adams Gray Consult Reason/Comments: ICU managment Do you want consulting provider notified?: Already Contacted Primary care physician: Ba Green - Discharge Diagnosis(es) (1) Non-STEMI (non-ST elevated myocardial infarction) Current Visit: Yes Status: Acute (2) Hypertension Current Visit: Yes Status: Chronic (3) Hyperlipidemia Current Visit: Yes Status: Chronic (4) History of stroke Current Visit: No Status: Resolved (5) Tobacco dependence Current Visit: Yes Status: Chronic (6) Family history of premature coronary artery disease Current Visit: Yes Status: Chronic (7) Diabetes mellitus Current Visit: Yes Status: Chronic (8) Acute coronary syndrome Current Visit: Yes Status: Acute Hospital Course: FINAL DIAGNOSIS: 1. Severe triple-vessel coronary artery disease, status post acute anterior wall myocardial infarction 2. Moderate left ventricular dysfunction with preoperative ejection fraction of 30-35% echocardiogram, repeat EF 40-45% after surgery 3. Hypertension 4. Uncontrolled diabetes with preoperative hemoglobin A1c 10.8% 5. Hyperlipidemia 6. Tobacco abuse 7. Severe COPD with preoperative FEV1 30% of predicted 8. Suspicion for obstructive sleep apnea 9. Noncompliance with medical therapy 10. Family history of premature coronary artery disease with his brother having 5 vessel bypass years old 11. Postoperative right-sided pneumothorax PRINCIPAL PROCEDURE: 1. Left heart catheterization 2. Urgent multiple arterial triple coronary artery bypass grafting using the left internal mammary artery to the left anterior descending artery, left radial artery from the aorta to the obtuse marginal artery, reverse saphenous vein graft from the aorta to the takeoff of the posterior descending artery 3. Endoscopic harvesting of the left radial artery 4. Endoscopic harvesting of the left greater saphenous vein from the groin to the knee level V. Intraoperative transesophageal echocardiogram and epi-aortic scanning 6. Intraoperative graft flow measurements using the Medistim system HISTORY OF PRESENT ILLNESS: This is a 57-year-old male patient who follows with Dr. Ba Green on an outpatient basis. He presented to [facility] with complaints of substernal chest pain with radiation to his left arm while at rest. Apparently he had been having intermittent chest discomfort for the previous 24 hours but that had became so severe he felt the need to report to the emergency room. He denied shortness of breath, diaphoresis, nausea, vomiting, or any other associated symptoms. His EKG at [facility] demonstrated ST segment abnormalities in the precordial leads as well as ST depression in V5, V6, in the inferior leads with ST elevation in aVR. His initial troponin was negative, second troponin was 1.5. He was transferred to [facility] and was taken emergently to the cardiac catheterization lab. His third troponin was 52.1. Heart catheterization demonstrated proximal RCA stenosis 70%, chronic total occlusion of the mid RCA with collateral fill from the left coronary system, mid circumflex with diffuse disease of 80-90%, proximal ramus artery with a lesion of 80-90%, proximal LAD with a long lesion extending from the ostium to the first diagonal branch which appeared to be approximately 99%, and mid LAD after the diagonal branch with diffuse disease of 40-50%. He was taken to the intensive care unit and a consult was placed for Dr. Roth from cardiothoracic surgery. Preoperative testing was initiated. He was recommended to undergo urgent coronary artery bypass grafting surgery. All risks and benefits were explained in detail to the patient and his family, all questions were answered, and consent was obtained to proceed with surgery. HOSPITAL COURSE: The patient was kept inpatient due to the nature of his disease and on December 13 he was taken to the preoperative area, prepared in the usual fashion, and subsequently taken to the operating room where Dr. Roth performed an urgent multiple arterial triple coronary artery bypass grafting using the left internal mammary artery to the left anterior descending artery, left radial artery from the aorta to the obtuse marginal artery, reverse saphenous vein graft from the aorta to the takeoff of the posterior descending artery, endoscopic harvesting of the left radial artery, endoscopic harvesting of the left greater saphenous vein from the groin to the knee level, intraoperative transesophageal echocardiogram and epi-aortic scanning, and intraoperative graft flow measurements using the Medistim system. Upon completion of surgery the patient was transferred to the cardiovascular intensive care unit where he was recovered, monitored hemodynamically, and where he progressed to cardiac rehabilitation phase 1. He was extubated, all lines, tubes, and drips were discontinued when appropriate, and he was transferred to [address] [place] [address] for further monitoring and rehabilitation. His oxygen was titrated down, he continued to work with physical and occupational therapy, he was tolerating oral diet, his pain was controlled, and he was ready to be discharged tohome with home care on postoperative day #4. He received written and verbal instruction regarding his medications, activity restrictions, signs and symptoms requiring physician notification, and follow- up appointments. COMPLICATIONS: The patient experienced postoperative right-sided pneumothorax which was successfully treated with thoravent. Patient Condition at Discharge: Serious Plan - Discharge Summary Discharge Rx Participant: Yes New Discharge Prescriptions: New Acetaminophen [Tylenol] 325 - 650 mg PO Q4H PRN #60 tab PRN Reason: Pain amLODIPine [Norvasc] 5 mg PO DAILY@1200 #30 tab Aspirin 325 mg PO DAILY #30 tab Atorvastatin [Lipitor] 40 mg PO DAILY #30 tab Clopidogrel [Plavix] 75 mg PO DAILY #30 tab Furosemide [Lasix] 20 mg PO DAILY #7 tab Metoprolol Tartrate [Lopressor] 25 mg PO BID #60 tab Pantoprazole [Protonix] 40 mg PO AC-BRKFST #30 tablet. Insulin Aspart [NovoLOG (formulary)] 9 unit SQ AC-SUPPER #1 vial Insulin NPH [humuLIN N] 9 unit SQ HS #1 vial Insuln Asp Prt/Insulin Aspart [NovoLOG MIX 70-30 VIAL] 37 unit SQ AC-BRKFST # 1 vial Discharge Medication List Acetaminophen [Tylenol] 325 - 650 mg PO Q4H PRN #60 tab 12/17/17 [Rx] Aspirin 325 mg PO DAILY #30 tab 12/17/17 [Rx] Atorvastatin [Lipitor] 40 mg PO DAILY #30 tab 07/27/18 [Rx] Clopidogrel [Plavix] 75 mg PO DAILY #30 tab 12/17/17 [Rx] Furosemide [Lasix] 20 mg PO DAILY #7 tab 12/17/17 [Rx] Insulin Aspart [NovoLOG (formulary)] 9 unit SQ AC-SUPPER #1 vial 12/17/17 [Rx] Insulin NPH [humuLIN N] 9 unit SQ HS #1 vial 12/17/17 [Rx] Insuln Asp Prt/Insulin Aspart [NovoLOG MIX 70-30 VIAL] 37 unit SQ AC-BRKFST #1 vial 12/17/17 [Rx] Metoprolol Tartrate [Lopressor] 25 mg PO BID #60 tab 12/17/17 [Rx] Pantoprazole [Protonix] 40 mg PO AC-BRKFST #30 tablet.dr 12/17/17 [Rx] amLODIPine [Norvasc] 5 mg PO DAILY@1200 #30 tab 12/17/17 [Rx] Follow up Appointment(s)/Referral(s): Jennifer Ly MD [STAFF PHYSICIAN] - 01/11/18 1:30 pm Kali Randhawa MD [STAFF PHYSICIAN] - 12/24/17 9:45 am Mariella Jin NPC [Nurse Practitioner] - 12/22/17 11:00 am Samantha Roth MD [STAFF PHYSICIAN] - 01/07/18 10:30 am Geovanni Ramon MD [REFERRING] - 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 No driving for 4 weeks, or until physician gives their ok. 2. The patient should sleep in their own bed, no medical bed needed. 3. Stairs are not an issue. If the bedroom is upstairs, it is advised that the patient go up at night and down in the morning for the first week. Go slowly, using handrail and take 1 step at a time. 4. AGUSTIN hose are to be worn for 30 days or until physician discontinues. 5. Heart hugger is to be worn 100% of the time until physician discontinues.( except when showering) 6. No lifting, pushing, or pulling more than 10 pounds for 12 weeks. The physician will advise of any restriction changes. 7. The patient is expected to continue the prescribed walking program. 8. Continue pain control per as needed orders. 9. Continue with incentive spirometry and splinting/heart hugger until otherwise directed by the physician. 10. Must shower daily using liquid antibacterial soap and a separate white washcloth for each individual incision. 11. Routine sternal incision care. No powders, lotions, ointments on incisions. 12. Please call surgeon/FARMWORKER ANIMAL for temp greater than 101 F or purulent drainage from incisions. 13. All prescriptions given by surgeon for 30 days. Refills need to be filled through metalizer field operation/primary care physician. 14. A Red armband has been placed on the patient. It should be worn for 30 days post surgery and will be removed by the cardiac surgeons. If an ER visit is necessary, please make sure the number on the Red armband is called. HOME HEALTH SERVICES TO PROVIDE: RN SKILLED HOME CARE SERVICES FOR POST-OP SURGICAL PATIENTS WITH THE FOLLOWING: Coronary Artery Bypass Surgery (CABG), Mitral Valve Replacement/ Repair ( MVR), Aortic Valve Replacement/Repair (AVR) RN TO CONTINUE EDUCATION FROM ``ROAD TO A HEALTH HEART PATIENT EDUCATION MANUAL (GIVEN TO PATIENT IN THE HOSPITAL) MEDICATION RECONCILIATION WITH EDUCATION NEEDED ON FIRST HOME VISIT EMPHASIZE IMPORTANCE OF WEARING BREAST SUPPORT/HEART HUGGER ENCOURAGE USE OF INCENTIVE SPIROMETER 10 X EVERY HOUR WHILE AWAKE ENCOURAGE UTILIZATION OF LOWER EXTREMITY COMPRESSION STOCKINGS/AGUSTIN HOSE and ELEVATE LEGS ABOVE LEVEL OF HEART WHILE AT REST. ENCOURAGE AMBULATION 3-5x/day INCREASING TOLERATES, WHILE AVOID EXTREMES IN TEMPERATURE FREQUENCY: RN TO OPEN THE PATIENT WITHIN 24 HOURS OF DISCHARGE FROM THE HOSPITAL WITH TELEHEALTH INSTALLED AT [facility] [place], RN TO VISIT 2-3 X A WEEK FOR 4 WEEKS ESTABLISHED BY PATIENT NEEDS. REMOVAL OF SUTURES: NURSING SERVICES TO REMOVE SUTURES TWO WEEKS POST SURGICAL DATE . If any questions regarding suture removal please call the office at . LABORATORY: CBC, CMP TO BE DRAWN ON THE THIRD DAY HOME, December 20, 2017 (RAN STAT) FAX RESULTS TO [phone]. TELEHEALTH PARAMETERS: WEIGHT: NOTIFY MD OF WEIGHT GAIN OF 2 LBS IN 24 HOURS OR 5 LBS IN ONE WEEK HR: NOTIFY MD OF HR <55 BPM OR HR>100 BPM BP: NOTIFY MD IF BP <90/55 OR BP>140/100 O2 SAT: NOTIFY MD IF PO2<93% ON ROOM AIR SEND TELEHEALTH REPORT TO AIR POLLUTION INSPECTOR AND CARDIOVASCULAR SURGEON THE FIRST WEEK OF CARE AND THEN BI-WEEKLY. PLEASE ADDITIONALLY COMMUNICATE ANY ABNORMALS AND NEW FINDINGS TO THE SURGEONS OFFICE. Glucometer - [facility] - [phone] please check your sugar four times a day , before breakfast, lunch and supper, and at bed time Keep keep your readings in log book , and bring it to your primary care doctor and tennis instructor If her sugar less than 70, or more than 350, please call 911 cast iron dipper to the nearest emergency room. If you have signs and symptoms of low sugar like jitteriness, nervousness, sweating, tremor, drowsiness, then eat or drink sugary stuff immediately, check your sugar after that and call 911. Discharge Disposition: HOME WITH HOME HEALTH SERVICES
[2017-12-17] MEDS ORDERED: METOPROLOL TARTRATE 25 MG TAB PO SCH (21:00)
--- NOTE | 2017-12-17 23:33 | P.PN ---
Subjective Patient is admitted for rest elevation microinfarction found to have severe two- vessel disease in RCA and left circumflex with the significant collaterals to the left coronary system. Patient will undergo coronary artery bypass grafting patient's ejection fraction is that is that 5% patient is not in heart failure exacerbation. 12/11/2017 No overnight events 12/12/2017 No chest pain 12/15/2017 Status post CABG postoperative day 2, chest tubes were removed patient is on aspirin cannula oxygen feeling much better today. Patient was switched to subcutaneous insulin from IV insulin. 12/16/2017 No overnight events patient is otherwise clinically doing well. 12/17/2017 pt is stable and is going to be dc by vascular surgery team today , pt states he has used insluin before and he wants to c/w same regiment he was using here, prescription is provided for him as well for glucometer and accessories is provided for him , he has high HB A1c >10%, pt was instructed to f/u with endo clinic in one week as well as with pcp and he agrees , he was counseled about the s/s of hypoglycemia and he verbalized understanding and acceptance Objective - Vital Signs Vital signs: Vital Signs Temp 98.0 F 12/17/17 12:05 Pulse 93 12/17/17 12:05 Resp 18 12/17/17 12:05 BP 113/59 12/17/17 12:05 Pulse Ox 95 12/17/17 12:05 Intake & Output 12/17/17 12/17/17 12/18/17 06:59 18:59 06:59 Intake Total 500 670 Output Total 40 300 Balance 460 370 Weight 85.9 kg Intake: IV 20 Invasive Line 9 20 Oral 480 670 Output: Drainage 40 Left Lower Calf 40 Urine 300 Other: Voiding Method Toilet Toilet Urinal Urinal # Voids 1 ABP, PAP, CO, CI - Last Documented Arterial Blood Pressure 117/40 Pulmonary Artery Pressure 45/23 Cardiac Output 7.2 Cardiac Index 4.4 - Exam GENERAL: The patient is alert and oriented x3, not in any acute distress. Well developed, well nourished. HEENT: Pupils are round and equally reacting to light. EOMI. No scleral icterus. No conjunctival pallor. Normocephalic, atraumatic. No pharyngeal erythema. No thyromegaly. CARDIOVASCULAR: S1 and S2 present. No murmurs, rubs, or gallops. PULMONARY: Chest is clear to auscultation, no wheezing or crackles. ABDOMEN: Soft, nontender, nondistended, normoactive bowel sounds. No palpable organomegaly. Small abdominal wall lump close to the umbilicus with a smooth borders and mobile, nontender MUSCULOSKELETAL: No joint swelling or deformity. EXTREMITIES: No cyanosis, clubbing, or pedal edema. NEUROLOGICAL: Gross neurological examination did not reveal any focal deficits. - Labs CBC & Chem 7: 12/17/17 05:25 12/17/17 05:25 Labs: Abnormal Lab Results - Last 24 Hours (Table) 12/17/17 12/17/17 Range/Units 05:25 05:25 RBC 3.32 L (4.30-5.90) m/uL Hgb 9.1 L (13.0-17.5) gm/dL Hct 27.3 L (39.0-53.0) % Total Protein 5.3 L (6.3-8.2) g/dL Albumin 3.0 L (3.5-5.0) g/dL Assessment and Plan Plan: ST elevation myocardial infarction with three-vessel disease patient will need coronary artery bypass grafting was evaluated by cardiothoracic surgery patient patient is status post coronary artery bypass grafting, removal of chest tubes. -Postoperative pneumothorax: Patient has Toradol and in place which is now disconnected from suction -Acute systolic dysfunction without any pulmonary edema or volume overload. Repeat echocardiogram was ordered and results are pending -Type 2 diabetes mellitus noncompliant with diet at home patient will be on sliding scale insulin for now -COPD without any acute exacerbation -Nicotine abuse: Patient is willing to quit smoking from now on. -Hypertension.
== END 2017-12-17 15:51 | disposition home health service (06) | DRG 234 ==
LOC: EC 01:18 → 6ICU 01:32 → 6SEL 15:32 → 6ICU 12-13 06:13 → 6SEL 12-16 18:09
PROVIDERS: ADMIT Hospitalist; ATTEND Surgery
PROC: B2111ZZ Fluoroscopy of Multiple Coronary Arteries using Low Osmolar Contrast (ICD-10-PCS; 2017-12-09)
PROC: B2151ZZ Fluoroscopy of Left Heart using Low Osmolar Contrast (ICD-10-PCS; 2017-12-09)
PROC: B24BZZ4 Ultrasonography of Heart with Aorta, Transesophageal (ICD-10-PCS; 2017-12-09)
PROC: 4A023N7 Measurement of Cardiac Sampling and Pressure, Left Heart, Percutaneous Approach (ICD-10-PCS; principal; 2017-12-09 01:27)
PROC: 06BQ4ZZ Excision of Left Saphenous Vein, Percutaneous Endoscopic Approach (ICD-10-PCS; 2017-12-13)
PROC: 03BC4ZZ Excision of Left Radial Artery, Percutaneous Endoscopic Approach (ICD-10-PCS; 2017-12-13)
PROC: 02100Z9 Bypass Coronary Artery, One Artery from Left Internal Mammary, Open Approach (ICD-10-PCS; 2017-12-13)
PROC: 30233N0 Transfusion of Autologous Red Blood Cells into Peripheral Vein, Percutaneous Approach (ICD-10-PCS; 2017-12-13)
PROC: 5A1221Z Performance of Cardiac Output, Continuous (ICD-10-PCS; 2017-12-13)
PROC: 021009W Bypass Coronary Artery, One Artery from Aorta with Autologous Venous Tissue, Open Approach (ICD-10-PCS; 2017-12-13 08:00)
PROC: 02100AW Bypass Coronary Artery, One Artery from Aorta with Autologous Arterial Tissue, Open Approach (ICD-10-PCS; 2017-12-13 08:00)
PROC: 0W9B30Z Drainage of Left Pleural Cavity with Drainage Device, Percutaneous Approach (ICD-10-PCS; 2017-12-14)
DX: I21.4 Non-ST elevation (NSTEMI) myocardial infarction (principal); J95.811 Postprocedural pneumothorax; I10 Essential (primary) hypertension; E78.5 Hyperlipidemia, unspecified; J44.9 Chronic obstructive pulmonary disease, unspecified; F17.219 Nicotine dependence, cigarettes, with unspecified nicotine-induced disorders; I25.10 Atherosclerotic heart disease of native coronary artery without angina pectoris; I25.5 Ischemic cardiomyopathy; I25.82 Chronic total occlusion of coronary artery; E11.65 Type 2 diabetes mellitus with hyperglycemia; Z86.73 Personal history of transient ischemic attack (TIA), and cerebral infarction without residual deficits; Z82.49 Family history of ischemic heart disease and other diseases of the circulatory system; Z71.6 Tobacco abuse counseling; Z91.19 Patient's noncompliance with other medical treatment and regimen; Y84.0 Cardiac catheterization as the cause of abnormal reaction of the patient, or of later complication, without mention of misadventure at the time of the procedure; Y71.3 Surgical instruments, materials and cardiovascular devices (including sutures) associated with adverse incidents; Y92.234 Operating room of hospital as the place of occurrence of the external cause; Z79.82 Long term (current) use of aspirin; Z91.11 Patient's noncompliance with dietary regimen; Z79.899 Other long term (current) drug therapy
CPT/HCPCS: 71045; 71046; 80048; 80053; 80061; 80074; 81003; 82330; 82550; 82553; 82805; 83036; 83735; 84100; 84132; 84443; 84484; 85025; 85027; 85520; 85610; 85730; 86850; 86891; 86900; 86901; 86920; 87070; 87086; 93005; 93306; 93308; 93458; 93880; 93922; 93970; 94002; 94150; 94640; 96365; 99291

== ENCOUNTER 2018-06-09 06:45 | Day surgery (SDC) | payer BC ==
[2018-06-07 10:42] VITALS: BMI 42.3
[~2018-06-09 06:45] MED LIST: SODIUM CHLORIDE 0.9% 1,000 ML IV SCH; ceFAZolin 1,000 MG in SODIUM CHLORIDE 0.9% IRRIGATIO 250 ML IRRIGATION ONE
[2018-06-09 07:29] LABS: Glucose,Whole Blood 113 mg/dL (75-99)
[2018-06-09] MEDS ORDERED: MIDAZOLAM 2 MG/2 ML VIAL ONE (07:55)
[2018-06-09] MEDS ORDERED: fentaNYL (PF) 50 MCG/ML 2 ML AMP ONE (07:55)
[2018-06-09] MEDS ORDERED: PROPOFOL 10 MG/ML 20 ML VIAL IV ONE (07:55)
[2018-06-09] MEDS ORDERED: IOPAMIDOL-250 50ML BTL IV ONE (08:21)
[2018-06-09] MEDS: ceFAZolin IN SWFI 2 GM/20 ML SYRINGE IVP ONE ×2 (08:24→08:26)
[2018-06-09] MEDS ORDERED: LIDOCAINE 1% INJ 10MG/ML (20 ML MDV) ONE ×2 (08:31)
[2018-06-09] MEDS ORDERED: LIDOCAINE 1% INJ 10MG/ML (20 ML MDV) SQ ONE ×2 (08:58)
[2018-06-09] MEDS ORDERED: SODIUM CHLORIDE 0.9% 500 ML 500 ML IV ONE (09:49)
--- NOTE | 2018-06-09 10:50 | CE ---
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 On guideline-directed medical treatment was brought in for ICD implantation for primary prevention of sudden cardiac . He has been on medical treatment for greater than 3 months. Patient was brought to the EP lab in a fasting state. Written informed consent was obtained prior to the procedure. The left shoulder area was prepped and draped as per protocol and 1% lidocaine was used for local anesthesia. A 4 cm incision was made parallel to the deltopectoral groove, about 1.5 cm medial to it the incision was carried down to the level of the pectoralis muscle. A subfascial pocket was made. Hemostasis was assured. The left axillary vein was accessed at a single point and via an appropriately-sized introducer sheath. A [employer] lead software development engineer model #7122Q, 50 cm in length and serial number [id number] was placed in and screwed in the right ventricular apex. R-waves 11.5 mV. Pacing impedance 540 ohms. Pacing threshold 0.5 V at 0.5 milliseconds. The threshold protocol was followed. The leads secured to the underlying pectoralis fascia using 2 nonabsorbable sutures. Pocket was irrigated with antibiotic solution. Lead was connected to the new generator, [employer] model #[id number], serial #[id number]. The leads and generator were then placed in subfascial pocket. The wound was closed in 3 layers and dressed per protocol. RESULT: Successful single-chamber ICD implantation for primary prevention of sudden cardiac in this gentleman with chronic ischemic cardiomyopathy with congestive heart failure with ejection fraction of 30%. DFT testing under anesthesia: A DC Fibber shock was used to induce ventricular fibrillation this was adequately and appropriately detected at least sensitivity and successfully internally defibrillated with a 10-joule shock. Charge time 1.6 seconds, shock impedance 73 ohms, no post shock noise, catheter polarity. The device was then programmed to MAD[employer] RIT programming. First cardioversion 10 joules, first defibrillation at 20 joules. PLAN: Maximize heart failure medications. Increase metoprolol to 50 mg p.o. daily and spironolactone to 25 mg p.o. daily. Continue Isuprel. Continue statins and dual anti- platelet therapies and diabetes management per PCP. MMODL / IJN: [id number] /
[2018-06-09] MEDS ORDERED: HYDROcodone/APAP 5-325MG 1 EACH TAB PO PRN (11:35)
[2018-06-09] MEDS ORDERED: ACETAMINOPHEN TAB 325 MG TAB PO PRN (11:35)
[2018-06-09] MEDS ORDERED: ACETAMINOPHEN IV (For NPO) 1,000 MG in EMPTY BAG 1 BAG IVPB ONE (12:00)
[2018-06-09 12:27] LABS: Glucose,Whole Blood 88 mg/dL (75-99)
[2018-06-09] MEDS: ceFAZolin IN SWFI 2 GM/20 ML SYRINGE IVP SCH ×2 (14:03→20:00)
[2018-06-09 16:40] LABS: Glucose,Whole Blood 129 mg/dL (75-99)
[2018-06-09] MEDS: metFORMIN 500 MG TAB PO SCH (20:00)
[2018-06-09 20:01] LABS: Glucose,Whole Blood 122 mg/dL (75-99)
[2018-06-09] MEDS ORDERED: LISINOPRIL 5 MG TAB PO SCH (21:00)
[2018-06-09] MEDS ORDERED: ATORVASTATIN 40 MG TAB PO SCH (21:00)
[2018-06-10] MEDS: ceFAZolin IN SWFI 2 GM/20 ML SYRINGE IVP SCH ×2 (02:22→08:25)
[2018-06-10 06:53] LABS: Glucose,Whole Blood 122 mg/dL (75-99)
--- NOTE | 2018-06-10 07:34 | P.DS ---
Providers Attending physician: Kali Randhawa Primary care physician: [facility] Course: Impression Severe ischemic cardio myopathy with severe LV dysfunction ejection fraction 30% Class 2-3 heart failure CAD old VA anteroapical status post CABG Type 2 diabetes Status post coronary artery bypass grafting Status post single chamber ICD implantation for primary pressure sudden cardiac Maximize beat blockers, metoprolol succinate 50 mg daily Spironolactone 25 mg by mouth daily Lisinopril 5 mg at night Continue dual antiplatelet therapy Continue statins Diabetes management per PCP Follow up in the device clinic in 5 days Follow-up Dr. Mahajan in 4 months Plan - Discharge Summary Discharge Rx Participant: Yes New Discharge Prescriptions: New Metoprolol Succinate [Toprol Xl] 50 mg PO DAILY #90 tab.er.24h Spironolactone [Aldactone] 25 mg PO DAILY #90 tablet Discontinued Metoprolol Succinate [Toprol XL] 25 mg PO DAILY No Action Clopidogrel [Plavix] 75 mg PO DAILY #30 tab Pantoprazole [Protonix] 40 mg PO AC-BRKFST #30 tablet. Cholecalciferol [Vitamin D3] 5,000 unit PO DAILY metFORMIN HCL 1,000 mg PO BID Pioglitazone [Actos] 30 mg PO DAILY Lisinopril [Zestril] 5 mg PO HS Aspirin [Adult Low Dose Aspirin EC] 81 mg PO DAILY Ozempic(Dose Unknown) 1 applicate IJ WEEKLY Atorvastatin [Lipitor] 40 mg PO HS Discharge Medication List Clopidogrel [Plavix] 75 mg PO DAILY #30 tab 12/17/17 [Rx] Pantoprazole [Protonix] 40 mg PO AC-BRKFST #30 tablet. 12/17/17 [Rx] Aspirin [Adult Low Dose Aspirin EC] 81 mg PO DAILY 06/07/18 [History] Atorvastatin [Lipitor] 40 mg PO HS 06/07/18 [History] Cholecalciferol [Vitamin D3] 5,000 unit PO DAILY 06/07/18 [History] Lisinopril [Zestril] 5 mg PO HS 06/07/18 [History] Ozempic(Dose Unknown) 1 applicate IJ WEEKLY 06/07/18 [History] Pioglitazone [Actos] 30 mg PO DAILY 06/07/18 [History] metFORMIN HCL 1,000 mg PO BID 06/07/18 [History] Metoprolol Succinate [Toprol Xl] 50 mg PO DAILY #90 tab.er.24h 06/09/18 [Rx] Spironolactone [Aldactone] 25 mg PO DAILY #90 tablet 06/09/18 [Rx] Follow up Appointment(s)/Referral(s): Kali Randhawa MD [STAFF PHYSICIAN] - 1 Week (Device clinic follow up in [address] Mahajan in 4 months) Activity/Diet/Wound Care/Special Instructions: PATIENT EDUCATION MATERIAL Instructions following a heart rhythm device implant. 1. Keep dressing DRY for 5 DAYS. You may cover the area with Saran or Cling Wrap, prior to a shower. 2. The dressing will be removed in the Device Clinic at [facility]. Absorbable sutures were used to close the wound. 3. Avoid raising the left arm above the shoulder level. 4 week restriction 4. Avoid arm movements, like backscratching, rubbing the head, or pulling on a cord. 4 weeks restriction 5. Gentle range of motion movements of the shoulder, closest to the incision should be performed to avoid a frozen shoulder. (Pendulum exercises of the shoulder) 6. The opposite arm may be used freely. 7. Avoid driving for 7 days. 8. Avoid activities such as golfing, swimming, weed whacking, lifting more than 10 pounds weight, bowling, gymnastics and weight training/lifting. (6 weeks restriction) 9. Activities such as wood chopping with an axe, pull-ups in the gymnasium, power lifting, arc-welding, being close to home induction cooktops will always be a problem. 10. Arm sling is only a reminder not to raise the arm above the head. You do not need to keep the arm completely immobilized. Your free to move the arm and use it and for normal activities. In case of any problems, please call [facility], Chris Francis, @ [phone], Attention: Device Clinic Device clinic follow-up in 5 days Follow-up with primary scientific diver in 2-3 months Please make sure that the patient takes metoprolol 50 mrem daily and Aldactone 25 mg daily and lisinopril 5 g by mouth daily in addition to all other medications Continue aspirin and Plavix Continue statins continue diabetes medications Discharge Disposition: HOME SELF-CARE
--- NOTE | 2018-06-10 07:34 | P.DS ---
Providers Attending physician: Kali Randhawa Primary care physician: [facility] Course: Patient is doing well. He is sitting comfortably in a chair. No hematoma no bruising over the ICD site Vitals are stable blood pressure 114/71 mmHg pulse rate in the 90s afebrile Breath sounds are clear no rhonchi no crackles Heart sounds S1 and S2 normal no murmurs or gallops or rub Breath sounds are clear Abdomen soft Extremities warm no edema Impression Congestive heart failure chronic class 2-3 with underlying severe ischemic cardio myopathy status post single chamber ICD implantation for primary prevention of sudden cardiac Suggest Discharge home after IV antibiotics chest x-ray and device interrogation today Metoprolol dose has been changed to 50 mg by mouth daily Spironolactone 25 mg by mouth daily Lisinopril 5 mg daily in the evening Atorvastatin Dual antiplatelet therapy Patient Condition at Discharge: Stable Plan - Discharge Summary Discharge Rx Participant: Yes New Discharge Prescriptions: New Metoprolol Succinate [Toprol Xl] 50 mg PO DAILY #90 tab.er.24h Spironolactone [Aldactone] 25 mg PO DAILY #90 tablet Discontinued Metoprolol Succinate [Toprol XL] 25 mg PO DAILY No Action Clopidogrel [Plavix] 75 mg PO DAILY #30 tab Pantoprazole [Protonix] 40 mg PO AC-BRKFST #30 tablet. Cholecalciferol [Vitamin D3] 5,000 unit PO DAILY metFORMIN HCL 1,000 mg PO BID Pioglitazone [Actos] 30 mg PO DAILY Lisinopril [Zestril] 5 mg PO HS Aspirin [Adult Low Dose Aspirin EC] 81 mg PO DAILY Ozempic(Dose Unknown) 1 applicate IJ WEEKLY Atorvastatin [Lipitor] 40 mg PO HS Discharge Medication List Clopidogrel [Plavix] 75 mg PO DAILY #30 tab 12/17/17 [Rx] Pantoprazole [Protonix] 40 mg PO AC-BRKFST #30 tablet. 12/17/17 [Rx] Aspirin [Adult Low Dose Aspirin EC] 81 mg PO DAILY 06/07/18 [History] Atorvastatin [Lipitor] 40 mg PO HS 06/07/18 [History] Cholecalciferol [Vitamin D3] 5,000 unit PO DAILY 06/07/18 [History] Lisinopril [Zestril] 5 mg PO HS 06/07/18 [History] Ozempic(Dose Unknown) 1 applicate IJ WEEKLY 06/07/18 [History] Pioglitazone [Actos] 30 mg PO DAILY 06/07/18 [History] metFORMIN HCL 1,000 mg PO BID 06/07/18 [History] Metoprolol Succinate [Toprol Xl] 50 mg PO DAILY #90 tab.er.24h 06/09/18 [Rx] Spironolactone [Aldactone] 25 mg PO DAILY #90 tablet 06/09/18 [Rx] Follow up Appointment(s)/Referral(s): Kali Randhawa MD [STAFF PHYSICIAN] - 1 Week (Device clinic follow up in [address] Mahajan in 4 months) Activity/Diet/Wound Care/Special Instructions: PATIENT EDUCATION MATERIAL Instructions following a heart rhythm device implant. 1. Keep dressing DRY for 5 DAYS. You may cover the area with Saran or Cling Wrap, prior to a shower. 2. The dressing will be removed in the Device Clinic at [facility]. Absorbable sutures were used to close the wound. 3. Avoid raising the left arm above the shoulder level. 4 week restriction 4. Avoid arm movements, like backscratching, rubbing the head, or pulling on a cord. 4 weeks restriction 5. Gentle range of motion movements of the shoulder, closest to the incision should be performed to avoid a frozen shoulder. (Pendulum exercises of the shoulder) 6. The opposite arm may be used freely. 7. Avoid driving for 7 days. 8. Avoid activities such as golfing, swimming, weed whacking, lifting more than 10 pounds weight, bowling, gymnastics and weight training/lifting. (6 weeks restriction) 9. Activities such as wood chopping with an axe, pull-ups in the gymnasium, power lifting, arc-welding, being close to home induction cooktops will always be a problem. 10. Arm sling is only a reminder not to raise the arm above the head. You do not need to keep the arm completely immobilized. Your free to move the arm and use it and for normal activities. In case of any problems, please call [facility], [facility] Francis, @ [phone], Attention: Device Clinic Device clinic follow-up in 5 days Follow-up with primary ore dryer in 2-3 months Please make sure that the patient takes metoprolol 50 mg daily and Aldactone 25 mg daily and lisinopril 5 mg by mouth daily in addition to all other medications Continue aspirin and Plavix Continue statins continue diabetes medications Please have patient's bring in all medication bottles this morning Please explain and educate patient regarding the correct medications and they' re correct dosages to be taken at home Discharge Disposition: HOME SELF-CARE
--- NOTE | 2018-06-10 08:23 | XR ---
EXAMINATION TYPE: XR chest 2V DATE OF EXAM: 06/10/2018 COMPARISON: 12/17/2017 HISTORY: Shortness of breath TECHNIQUE: Frontal and lateral views of the chest are obtained. FINDINGS: Single lead pacer device is in place with the lead within the right ventricle. No evidence for pneumo thorax. Scattered senescent parenchymal changes noted. Hyperinflation compatible with COPD. No evidence for infiltrate. No evidence for atelectasis. Heart size is stable. Mediastinal structures are stable and grossly unremarkable. No evidence for hilar prominence. Degenerative changes dorsal spine. IMPRESSION: 1. No evidence for acute pulmonary disease.
[2018-06-10] MEDS: metFORMIN 500 MG TAB PO SCH (08:25)
[2018-06-10 08:45] LABS: Calcium 10.2 mg/dL (8.4-10.2); Potassium 4.8 mmol/L (3.5-5.1)
[2018-06-10] MEDS ORDERED: PIOGLITAZONE 30 MG TAB PO SCH (09:00)
[2018-06-10] MEDS ORDERED: CLOPIDOGREL 75 MG TAB PO SCH (09:00)
[2018-06-10] MEDS ORDERED: METOPROLOL SUCCINATE (ER) 50 MG TAB.ER.24H PO SCH (09:00)
[2018-06-10] MEDS ORDERED: ASPIRIN 81 MG PO SCH (09:00)
[2018-06-10] MEDS ORDERED: SPIRONOLACTONE 25 MG TAB PO SCH (09:00)
[2018-06-10] MEDS ORDERED: METOPROLOL SUCCINATE (ER) 25 MG TAB.ER.24H PO SCH (09:00)
[2018-06-10 09:03] VITALS: BP 105/68; PULSE 100; RESP 16; TEMP 98.2
== END 2018-06-10 10:32 | disposition home or self-care (01) ==
LOC: CATHEP 06:45 → 1SOBS 10:03 → CATHEP 06-10 10:32
PROVIDERS: ATTEND Internal Medicine Clinical Cardiac Electrophysiology
DX: I25.5 Ischemic cardiomyopathy (principal); Z00.6 Encounter for examination for normal comparison and control in clinical research program; I11.0 Hypertensive heart disease with heart failure; I50.9 Heart failure, unspecified; I25.10 Atherosclerotic heart disease of native coronary artery without angina pectoris; Z87.891 Personal history of nicotine dependence; Z95.1 Presence of aortocoronary bypass graft; E78.5 Hyperlipidemia, unspecified; E11.9 Type 2 diabetes mellitus without complications; Z82.49 Family history of ischemic heart disease and other diseases of the circulatory system; I25.2 Old myocardial infarction; Z79.02 Long term (current) use of antithrombotics/antiplatelets; Z79.82 Long term (current) use of aspirin; Z79.4 Long term (current) use of insulin; Z79.899 Other long term (current) drug therapy
CPT/HCPCS: 93641; 33249; 80061; 80048; 71046; C1892; C1777; C1722; J2250; J0690 ×3; J2001; J3010; J2704; Q9966

== ENCOUNTER → 2020-04-02 | Outpatient (CLI) | payer BC ==
[2020-04-02 21:42] LABS: African American GFR (CKD) 76.3 (60.0-200.0); Anion Gap 12.6 mmol/L (4.00-12.00); BUN/Creat Ratio 16.67 Ratio (12.00-20.00); Calcium 9.9 mg/dL (8.7-10.3); Carbon Dioxide 21.4 mmol/L (21.6-31.8); Non-African American GFR(CKD) 65.8 (60.0-200.0); Potassium 4.8 mmol/L (3.5-5.5)
== END | disposition home or self-care (01) ==
LOC: LABWHC1 10:56
PROVIDERS: ATTEND Physician Assistant
DX: I50.9 Heart failure, unspecified (principal); E87.5 Hyperkalemia
CPT/HCPCS: 36415; 80048

== ENCOUNTER 2022-10-13 07:33 | Day surgery (SDC) | payer BC ==
[~2022-10-13 07:33] MED LIST changes: +LACTATED RINGERS 1,000 ML IV SCH; +LIDOCAINE 1% (10MG/ML) FOR IV START INTRADERMA PRN; -SODIUM CHLORIDE 0.9% 1,000 ML IV SCH; -ceFAZolin 1,000 MG in SODIUM CHLORIDE 0.9% IRRIGATIO 250 ML IRRIGATION ONE
[2022-10-13] MEDS ORDERED: LACTATED RINGERS 1,000 ML IV ONE (07:50)
[2022-10-13 07:51] VITALS: TEMP 97.6
[2022-10-13 07:59] LABS: Glucose,Whole Blood 178 mg/dL (70-110)
[2022-10-13] MEDS ORDERED: PROPOFOL 10 MG/ML 20 ML VIAL IV ONE (08:36)
--- NOTE | 2022-10-13 08:51 | P.PCN ---
Date of Procedure: 10/13/22 Procedure(s) Performed: BRIEF HISTORY: Patient is a [id number] pleasant white male scheduled for an elective colonoscopy as a part of screening for colon cancer. PROCEDURE PERFORMED: Colonoscopy with biopsy. PREOPERATIVE DIAGNOSIS: Screening for colon cancer. IV sedation per Anesthesia. PROCEDURE: After informed consent was obtained, the patient, was brought into the endoscopy unit. IV sedation was administered by Anesthesia under continuous monitoring. Digital rectal examination was normal. Initially the Olympus CF-160 flexible video colonoscope was then inserted in the rectum, gradually advanced into the cecum without any difficulty. Careful examination was performed as the scope was gradually being withdrawn. Ileocecal valve and the appendiceal orifice were visualized and appeared normal. Prep was excellent. Mucosa of the cecum, ascending colon, transverse colon, appeared normal. In the descending colon there was a 4 mm sessile polyp removed by cold biopsy. descending colon, sigmoid colon, and rectum appeared normal. Scattered sigmoid diverticulosis. Retroflexion was performed in the rectum and no lesions were seen. The patient tolerated the procedure well. IMPRESSION: 4 mm sessile descending colon polyp status post cold biopsy; Rest of the colon appeared normal Scattered sigmoid diverticulosis. RECOMMENDATIONS: Findings of this examination were discussed with the patient as well as his family. He was advised to follow with the biopsy results. If the biopsy reveals adenoma he can have a repeat colonoscopy in 5 years.
[2022-10-13 09:08] VITALS: BP 130/76; PULSE 71; RESP 16
== END 2022-10-13 09:29 | disposition home or self-care (01) ==
LOC: ORWHC2ENDO 07:33
PROVIDERS: ATTEND Internal Medicine Gastroenterology
DX: Z12.11 Encounter for screening for malignant neoplasm of colon (principal); D12.4 Benign neoplasm of descending colon; K57.30 Diverticulosis of large intestine without perforation or abscess without bleeding; I25.2 Old myocardial infarction; I10 Essential (primary) hypertension; E78.5 Hyperlipidemia, unspecified; J44.9 Chronic obstructive pulmonary disease, unspecified; G47.33 Obstructive sleep apnea (adult) (pediatric); E11.9 Type 2 diabetes mellitus without complications; F17.200 Nicotine dependence, unspecified, uncomplicated; G43.909 Migraine, unspecified, not intractable, without status migrainosus; Z86.73 Personal history of transient ischemic attack (TIA), and cerebral infarction without residual deficits; Z95.1 Presence of aortocoronary bypass graft; Z79.899 Other long term (current) drug therapy; Z79.51 Long term (current) use of inhaled steroids; Z79.4 Long term (current) use of insulin
CPT/HCPCS: 88305; 45380; J2704